=== PATIENT | female | born 1955 | race Caucasian/White ===

== ENCOUNTER 2020-12-18 11:02 | Outpatient (REF) | payer MEDICARE, SELFPAY ==
--- NOTE | ~2020-12-18 | MM_ITS ---
EXAMINATION: MM SCREENING DIGITAL BREAST TOMOSYNTHESIS, BILATERAL CLINICAL INFORMATION: Screening. Asymptomatic. The lifetime risk of breast cancer based on the Tyrer-Cuzick Model is 5%. COMPARISON: Mammography: 12/13/2019, 12/07/2018, 10/28/2017 TECHNIQUE: Digital breast tomosynthesis is performed in both the craniocaudal and mediolateral oblique views along with computer-aided detection (CAD). Synthesized 2D images are generated from the tomosynthesis. FINDINGS: There are scattered areas of fibroglandular density (ACR BI-RADS breast composition Category b). There are no significant masses, abnormal calcifications, or other abnormalities. Parenchymal pattern is similar to prior exams. The axilla and skin contours are unremarkable. No significant changes. MM/MM tomosynthesis screening BI IMPRESSION: No mammographic evidence of malignancy. ASSESSMENT: BI-RADS 1: Negative RECOMMENDATION: Routine annual mammography screening. This patient's information was entered into a reminder system with a target due date for their next mammogram.
== END 2020-12-18 11:03 | disposition home or self-care (01) ==
LOC: HO.MAMMO 11:02
PROVIDERS: PCP Internal Medicine; Visit Provider Internal Medicine
DX: Z12.31 Encounter for screening mammogram for malignant neoplasm of breast (principal)
CPT/HCPCS: 77063; 77067

== ENCOUNTER 2021-06-22 09:15 | Inpatient (IN) | payer MEDICARE, SELFPAY ==
[2021-06-22] VITALS (10 sets, daily range): BP systolic 150–199; BP diastolic 63–93; PULSE 66–93; RESP 16–21; TEMP 36.1–36.7; O2SAT 95–97; BMI 36.5
--- NOTE | ~2021-06-22 | CT_ITS ---
EXAMINATION: CT ABDOMEN AND PELVIS WITH CONTRAST CLINICAL INFORMATION: Elevated liver enzymes and lipase. COMPARISON: None TECHNIQUE: Multidetector volumetric images were obtained from the superior aspect of the liver through the pubic symphysis following administration 85 mL of Omnipaque 350 intravenous contrast. Sagittal and coronal reformatted images were obtained on the technologist's workstation. Oral contrast: No This CT examination was performed using dose optimization techniques as appropriate, variously including the following: *Automated exposure control *Adjustment of mA and/or kV according to patient size (this includes techniques or standardized protocols for targeted exams where dose is matched to indication/reason for exam; i.e. extremities or head) *Use of iterative reconstruction technique DLP: 932 mGy-cm FINDINGS: LUNG BASES: There is minimal atelectatic changes in right lung base. The heart size is normal.. LIVER, GALLBLADDER, AND BILIARY TREE: The liver is normal in size, shape, and attenuation. No focal hepatic lesion or biliary ductal dilatation is present. There are radiopaque gallstones with mild wall thickening. PANCREAS: A pancreatic cyst is normal size and density. There is peripancreatic fluid collection suggestive of acute pancreatitis with fluid extending into the periportal region SPLEEN: Unremarkable. ADRENAL GLANDS: Unremarkable. KIDNEYS AND URETERS: The kidneys are normal in size, shape, and attenuation. No hydronephrosis, hydroureter, or calculi seen. No perinephric stranding. BLADDER: The bladder is undistended and appears unremarkable. GASTROINTESTINAL TRACT: There is scattered stool and gas seen throughout the colon without any significant distention. The appendix is normal caliber caliber. No free air or free fluid seen. ABDOMINAL WALL: There is a small lumbar canal hernia containing fat LYMPH NODES: No abnormal lymph nodes seen. VASCULAR: There is mild arthroscopic changes of abdominal aorta without aneurysmal dilatation. No lytic or sclerotic process seen. PELVIC VISCERA: There is no free air. There is minimal free fluid. The uterus is anteverted and appears unremarkable. OSSEOUS STRUCTURES: There is grade 1 anterolisthesis L4 over L5. There are degenerative disc changes with vacuum disc phenomena L1-L2, L2-L3 and L5-S1 disc levels. CT/CT abdomen pelvis w con IMPRESSION: Acute pancreatitis with peripancreatic fluid collection extending to the portal region and inferiorly along the right midabdomen in the pelvis. Cholelithiasis with mild wall thickening. Degenerative disc changes lumbar spine.
--- NOTE | 2021-06-22 10:36 | ED.ABDPAIN ---
HPI - Abdominal Pain General Chief Complaint: Abdominal Pain Stated Complaint: gas Time Seen by Provider: 06/22/21 10:28 Source: patient Mode of arrival: ambulatory Limitations: no limitations History of Present Illness HPI narrative: Patient is a 65-year-old female with a past medical history of HTN and HLD who presents with 8 hours of abdominal pain and bloating. She says it woke her up out of a sleep. She describes her pain as being epigastric and then moving his way downward. It is a dull achy pain. She denies any changes in her bladder or bowels she denies fevers, she denies any bloody or black stools. She did try taking Tums with no relief. She states she did not take any of her regular daily medications including 20 mg of lisinopril this morning. She states this pain does not feel like typical gas pain. Denies eating anything out of her normal diet, sick contacts or any recent travel. Related Data Allergies Allergy/AdvReac Type Severity Reaction Status Date / Time No Known Allergies Allergy Verified 06/22/21 09:22 [No Known Allergies*] Review of Systems Review of Systems Yes all other systems are reviewed and are negative Physical Exam Vital Signs: Vital Signs: Last Vital Signs Temp 98.1 F 06/22/21 14:21 Pulse 83 06/22/21 14:21 Resp 18 06/22/21 14:21 BP 178/93 H 06/22/21 14:21 Pulse Ox 95 06/22/21 14:21 Body Mass Index 36.5 Const: General: cooperative, healthy appearing, comfortable, no acute distress and well developed Orientation/consciousness: patient oriented x3 Limitations: no limitations HENMT: Head: Yes normal to inspection Eyes: General: appearance normal, both eyes and all related structures Neck: Neck: Yes normal visual inspection and Yes full ROM Resp: Effort & Inspection: normal respiratory effort and able to speak in complete sentences Auscultation: clear to auscultation bilaterally Cardio: Rate: regular rate Rhythm: regular rhythm Heart sounds: normal S1 and S2 GI: Inspection: Yes normal to inspection Palpation (GI): Soft to palpation and Tenderness to palpation present (GI) in the epigastrum and other (generalized) Skin: General skin exam: no rashes or lesions noted Neuro: General: patient oriented x3 Extrem: General: Yes normal to inspection Course Course Course Narrative: Patient is a 65-year-old female with a past medical history of HTN and HLD who presents with 8 hours of abdominal pain and bloating. VSS except for elevated BP but pt didn't take her lisinopril today, will give now. Physical exam unremarkable except for epigastric abdominal pain and generalized abdominal pain. Will get labs, UA, EKG, treat her high blood pressure and give her some simethicone and reassess. Reevaluation(s) Reevaluation #1: Labs show an elevated lipase of 2424, elevated AST at 191 and ALT at 01:53. All other labs unremarkable. Will get abdominal CT scan make patient NPO and order triglycerides. \ Discussed with patient, she denies she does not drink alcohol except occasionally. Time: 12:20 Reevaluation #2: CT of the abdomen and pelvis showed acute pancreatitis with peripancreatic fluid collection extending to the portal region and inferiorly along them right mid abdomen and the pelvis. Patient also has cholelithiasis with mild wall thickening. Will call GI and plan on admission . Spoke with GI, Dr. Steward, she advised bowel rest, IV pain meds, IV fluids and repeat lipase and LFTs tomorrow. Sent text to Dr Navas to advise and for admission Time: 14:37 MDM - Abdominal Pain Lab Data Attestation: I reviewed the patient's lab results. Result diagrams: 06/22/21 11:14 06/22/21 11:14 Labs: Lab Results 06/22/21 06/22/21 06/22/21 Range/Units 11:14 11:14 11:14 WBC 11.4 H (4.8-10.8) X10*3/uL RBC 4.85 (4.20-5.50) X10*6/uL Hgb 14.4 (12.0-16.0) g/dl Hct 43.2 (37-47) % MCV 89.1 (80-98) fL MCH 29.7 (27.0-33.0) pg MCHC 33.3 (31.0-35.0) g/dl RDW 13.3 (11.0-16.0) % Plt Count 201 (160-400) X10*3/uL MPV 9.7 (9.4-12.3) fL Immature Gran % (Auto) 0.4 (0.0-0.4) % Neut % (Auto) 91.0 H (45-73) % Lymph % (Auto) 5.6 L (20-40) % [place] % (Auto) 2.7 (2-11) % Eos % (Auto) 0.1 (0-4) % Baso % (Auto) 0.2 (0-2) % Lymph # (Auto) 0.6 L (1.2-4.9) X10*3/uL [place] # (Auto) 0.3 (0.1-1.2) X10*3/uL Eos # (Auto) 0.0 (0.0-0.4) X10*3/uL Baso # (Auto) 0.0 (0.0-0.2) X10*3/uL Abs Immat Gran (auto) 0.05 H (0.00-0.03) X10*3/uL Absolute Neuts (auto) 10.4 H (2.0-8.3) X10*3/uL Absolute Nucleated RBC 0.000 (0.0-0.012) X10*3/uL Nucleated RBC % (auto) 0.0 (0.0-0.2) /100WBC Smear Tech's Comments VERIFIED Sodium 139 (135-145) mmol/L Potassium 4.2 (3.3-5.1) mmol/L Chloride 108 (96-108) mmol/L Carbon Dioxide 20 L (22-29) mmol/L Anion Gap 15 (12-20) BUN 20 H (9-16) mg/dL Creatinine 0.73 (0.5-1.4) mg/dL Estim Creat Clear Calc 81.2 Estimated GFR > 60 Random Glucose 150 H (60-115) mg/dL Calcium 9.6 (8.4-10.2) mg/dL Total Bilirubin 0.7 (0.0-1.0) mg/dL Direct Bilirubin 0.4 (0.0-0.5) mg/dL AST 191 H (5-31) U/L ALT 153 H (0-31) U/L Alkaline Phosphatase 114 (39-117) U/L Troponin I High Sens (<3.5-17.0) ng/L B-Natriuretic Peptide 29 (<100) pg/mL Total Protein 7.0 (6.5-8.0) g/dL Albumin 4.4 (3.5-5.0) g/dL Triglycerides mg/dL Lipase 2424 H (8-78) U/L 06/22/21 06/22/21 Range/Units 11:14 11:14 WBC (4.8-10.8) X10*3/uL RBC (4.20-5.50) X10*6/uL Hgb (12.0-16.0) g/dl Hct (37-47) % MCV (80-98) fL MCH (27.0-33.0) pg MCHC (31.0-35.0) g/dl RDW (11.0-16.0) % Plt Count (160-400) X10*3/uL MPV (9.4-12.3) fL Immature Gran % (Auto) (0.0-0.4) % Neut % (Auto) (45-73) % Lymph % (Auto) (20-40) % [place] % (Auto) (2-11) % Eos % (Auto) (0-4) % Baso % (Auto) (0-2) % Lymph # (Auto) (1.2-4.9) X10*3/uL [place] # (Auto) (0.1-1.2) X10*3/uL Eos # (Auto) (0.0-0.4) X10*3/uL Baso # (Auto) (0.0-0.2) X10*3/uL Abs Immat Gran (auto) (0.00-0.03) X10*3/uL Absolute Neuts (auto) (2.0-8.3) X10*3/uL Absolute Nucleated RBC (0.0-0.012) X10*3/uL Nucleated RBC % (auto) (0.0-0.2) /100WBC Smear Tech's Comments Sodium (135-145) mmol/L Potassium (3.3-5.1) mmol/L Chloride (96-108) mmol/L Carbon Dioxide (22-29) mmol/L Anion Gap (12-20) BUN (9-16) mg/dL Creatinine (0.5-1.4) mg/dL Estim Creat Clear Calc Estimated GFR Random Glucose (60-115) mg/dL Calcium (8.4-10.2) mg/dL Total Bilirubin (0.0-1.0) mg/dL Direct Bilirubin (0.0-0.5) mg/dL AST (5-31) U/L ALT (0-31) U/L Alkaline Phosphatase (39-117) U/L Troponin I High Sens < 3.5 (<3.5-17.0) ng/L B-Natriuretic Peptide (<100) pg/mL Total Protein (6.5-8.0) g/dL Albumin (3.5-5.0) g/dL Triglycerides 67 mg/dL Lipase (8-78) U/L Imaging Data CT scan - abdomen: Attestation: I personally reviewed and interpreted this imaging study as follows: Radiologist's impression: CT/CT abdomen pelvis w con IMPRESSION: Acute pancreatitis with peripancreatic fluid collection extending to the portal region and inferiorly along the right midabdomen in the pelvis. ? Cholelithiasis with mild wall thickening. ? Degenerative disc changes lumbar spine. Discharge Plan Discharge Clinical Impression: Acute gallstone pancreatitis [facility] Past Medical History Medical History No known health problems Social History Social History Advance Directives: No Advance Directives Information Provided: Yes
--- NOTE | 2021-06-22 10:42 | ECG_ITS ---
Test Reason : ABD PAIN Blood Pressure : / mmHG Vent. Rate : 068 BPM Atrial Rate : 068 BPM P-R Int : 140 ms QRS Dur : 092 ms QT Int : 424 ms P-R-T Axes : 043 -02 041 degrees QTc Int : 450 ms Normal sinus rhythm Normal ECG No previous ECGs available Referred By: Cristin Pinto Electronically Signed By:JENNIFER COBB
[2021-06-22] MEDS: lisinopriL 20 MG TABLET PO (10:53)
[2021-06-22] MEDS: Simethicone 80 MG TAB.CHEW PO (10:53)
--- NOTE | 2021-06-22 11:00 | PC.NURSE ---
pt alert and oriented. Pt reports abdominal pain and bloating that started about eight hours ago. She states the pain woke her up out of her sleep. She describes her pain as being a dull achy epigastric feeling. She denies bloody or black stools. no c/o fever. She reports she took Tums with no relief. Pt has history of HTN and is on Lisinopril but did not take her meds this morning. Her b/p on arrival to ed was 199/86. Pt NS on monitor, Meds given as documented, will continue to monitor. Her is at her bedside.
[2021-06-22 11:26] LABS: Basophils Percent Auto 0.2 % (0-2); Eosinophils Percent Auto 0.1 % (0-4); Hematocrit 43.2 % (37-47); Hemoglobin 14.4 g/dl (12.0-16.0); Imm Gran Abs Auto 0.05 X10*3/uL (0.00-0.03); Imm Gran Pct Auto 0.4 % (0.0-0.4); Lymphocytes Absolute Auto 0.6 X10*3/uL (1.2-4.9); Lymphocytes Percent Auto 5.6 % (20-40); MANUAL DIFF FLAG SCAN; Mean Corpuscular HGB Conc 33.3 g/dl (31.0-35.0); Mean Corpuscular Hemoglobin 29.7 pg (27.0-33.0); Mean Corpuscular Volume 89.1 fL (80-98); Mean Platelet Volume 9.7 fL (9.4-12.3); Monocytes Absolute Auto 0.3 X10*3/uL (0.1-1.2); Monocytes Percent Auto 2.7 % (2-11); Neutrophils Absolute Auto 10.4 X10*3/uL (2.0-8.3); Platelet Count 201 X10*3/uL (160-400); Red Blood Count 4.85 X10*6/uL (4.20-5.50); Red Cell Distribution Width 13.3 % (11.0-16.0); SCAN SMEAR FLAG 1; White Blood Count 11.4 X10*3/uL (4.8-10.8)
[2021-06-22 11:45] LABS: B Type Natriuretic Peptide 29 pg/mL (<100); Troponin-I High Sensitivity < 3.5 ng/L (<3.5-17.0)
[2021-06-22 11:46] LABS: Alanine Aminotransferase 153 U/L (0-31); Albumin Level 4.4 g/dL (3.5-5.0); Alkaline Phosphatase 114 U/L (39-117); Anion Gap 15 (12-20); Aspartate Amino Transferase 191 U/L (5-31); Bilirubin Direct 0.4 mg/dL (0.0-0.5); Bilirubin Total 0.7 mg/dL (0.0-1.0); Blood Urea Nitrogen 20 mg/dL (9-16); Calcium 9.6 mg/dL (8.4-10.2); Carbon Dioxide 20 mmol/L (22-29); Chloride 108 mmol/L (96-108); Creatinine Clr Calc Pharmacy 81.2; Estimated Glomerular Filt Rate > 60; Glucose Random 150 mg/dL (60-115); Potassium 4.2 mmol/L (3.3-5.1); Sodium 139 mmol/L (135-145)
[2021-06-22 12:03] LABS: SLIDE REVIEW VERIFIED
[2021-06-22 12:32] LABS: Lipase 2424 U/L (8-78)
[2021-06-22 13:02] LABS: Triglycerides 67 mg/dL
[2021-06-22] MEDS: iohexoL 350 MG/ML 100 ML INFUS..BTL IV (14:03)
--- NOTE | 2021-06-22 15:15 | PM.IMHP ---
History of Present Illness Date of Service: 06/22/21 65 year old female with HTN controlled with meds, HLD on lipitor, obesity here with abdominal pain that started around 3 a, initially starting as pressure and then became difuse abdominal pain 8/10, constant, no radiation, associated with nausea but no vomitting, no fever. She took 2 tums with no difference, didn't feel like eating, was finally advised by sister in law to come. CT shows gallstones and Lipase level is over 2000 Review of Systems Review of Systems: Gen: no fever Resp: no sob, no cough CV: no chest, no CARRASCO, no leg edema GI: Nausea, and abdominal pain, no vomiting. Neuro: No confusion Yes all other systems are reviewed and are negative [facility] Medical History HLD (hyperlipidemia) HTN (hypertension) No known health problems Family History Brother CAD (coronary artery disease) Mother CAD (coronary artery disease) Pertinent family history: . Surgical History No history of previous surgery Social History Household Members: Spouse Housing: House Do you presently have visiting nurse or other home services: No Unable to assess alcohol history related to: Unable to respond Alcohol intake: current Alcohol intake frequency: holidays/special occasions only Patient Tobacco Use Status: Current everyday Tobacco user Tobacco use type: Smokeless Tobacco e-Cigarette/Vaping Use: Currently Using Second Hand Smoke Exposure: No Advance Directives Date on File: 06/23/21 service: No Meds Allergies Allergy/AdvReac Type Severity Reaction Status Date / Time No Known Allergies Allergy Verified 06/22/21 09:22 [No Known Allergies*] Active Medications: Current Medications Lactated Ringer's (Lr) 1,000 mls @ 125 mls/hr IVCONT .[facility] Home Medications Medication Instructions Recorded Confirmed Last Taken Type atorvastatin 20 mg tablet 1 tab PO DAILY 06/22/21 06/22/21 Unknown History latanoprost 0.005 % eye drops 1 drp OPHTHALMIC (EYE) BEDTIME 06/22/21 06/22/21 Unknown History Physical Exam Vital Signs and Narrative: Vital Signs: Last Vital Signs Temp 98.1 F 06/22/21 14:21 Pulse 80 06/22/21 15:11 Resp 21 H 06/22/21 15:11 BP 151/89 H 06/22/21 15:11 Pulse Ox 96 06/22/21 15:11 Body Mass Index 36.5 Constitutional Awake and Alert, No apparent distress HEENT-Anicteric, Neck Supple, No lymphadenopathy Cardiovascular RRR, No M/R/G, S1 S2, No S3 S4, No pedal edema Respiratory Lungs clear, No respiratory distress Gastrointestinal Non tender, Non-distended Skin No rash Neurological Alert & oriented x3 Psychological Appropriate affect Results Labs CBC and Chem 7: 06/25/21 08:03 06/25/21 08:03 Imaging Radiologist's Impressions: Impressions Abdomen/Pelvis CT 06/22/21 12:48 IMPRESSION: Acute pancreatitis with peripancreatic fluid collection extending to the portal region and inferiorly along the right midabdomen in the pelvis. Cholelithiasis with mild wall thickening. Degenerative disc changes lumbar spine. Assessment and Plan (1) Acute gallstone pancreatitis: Status: Acute 65-year-old female with obesity, hypertension, hyperlipidemia presenting with abdominal pain and found to have choledocholithiasis no evidence of acute cholecystitis. 1. Choledocholithiasis--pain control with morphine. Hydration. Repeat LFTs in the morning. GI and surgery consult: Sure likely need ERCP followed by eventual cholecystectomy Empiric Ceftriaxone 2. Acute gallstone pancreatitis--liquid diet, IV fluid, pain control as above. 3. Hypertension continue home medication (lisinopril) 4. HLD--hold Lipitor in light of elevated LFTs. 5. Heparin for DVT prophylaxis. Quality Stroke Does the patient have a stroke diagnosis?: No VTE Prior VTE?: No VTE Risk Level:: Medical - moderate - high VTE Device Contraindication: N/A - Device Ordered VTE Drug Contraindication: N/A - Med Ordered
[2021-06-22 15:19] LABS: Appearance Urine HAZY; Color Urine YELLOW; Glucose Urine UA NEG (NEG); Leukocyte Esterase Urine NEG (NEG); Nitrite Urine NEG (NEG); Specific Gravity - Urine >= 1.030 (1.005-1.025); UACC Culture Trigger NO; Urine Blood TRACE (NEG); Urine Ketones NEG (NEG); Urine Protein TRACE MG/DL (NEG-TRACE)
[2021-06-22] MEDS: Lactated Ringers 1,000 ML 125 ML IVCONT (15:26)
[2021-06-22 15:27] LABS: Amorphous Sediment Urine 1+ /LPF; Bacteria Urine TRACE /LPF; RBC Urine 0-2 /HPF (0); Squamous Epithelial Cell Urine 1+ /LPF; WBC Urine 0-2 /HPF (0-4)
[2021-06-22 15:44] LABS: COVID-19 Test Negative (Negative)
[2021-06-22] MEDS: Morphine Sulfate 4 MG/ML CARTRIDGE 2 MG IVPUSH (16:47)
[2021-06-22] MEDS: cefTRIAXone sodium 1 GM in 0.9 % Sodium Chloride 50 ML IV (17:51)
[2021-06-22] MEDS: Morphine Sulfate 4 MG/ML CARTRIDGE IVPUSH (19:37)
[2021-06-22] MEDS: Dextrose 5 % and 0.45 % NaCl 1,000 ML 100 ML IVCONT (20:19)
--- NOTE | 2021-06-22 20:27 | PC.NURSE ---
per hospitalist (Anthony) discontinue LR infusion and start D5 1/2NS at 100/hr remaining volume in LR bag was 633ml at time of d/c. order is d/c so system will not allow edits at this time.
[2021-06-23] VITALS (8 sets, daily range): BP systolic 139–190; BP diastolic 73–90; PULSE 87–96; RESP 16–19; TEMP 36.4–36.9; O2SAT 90–95; BMI 36.8
[2021-06-23] MEDS: 0.9 % Sodium Chloride Flush 3 ML SYRINGE IVFLUSH ×3 (00:20→19:41)
--- NOTE | 2021-06-23 00:37 | PC.NURSE ---
nurse to nurse report given to Gayle BRYAN
[2021-06-23] MEDS: Morphine Sulfate 4 MG/ML CARTRIDGE IVPUSH ×4 (01:39→19:40)
[2021-06-23] MEDS: Dextrose 5 % and 0.45 % NaCl 1,000 ML 100 ML IVCONT (06:12)
[2021-06-23] MEDS: Acetaminophen 325 MG TABLET 650 MG PO (06:24)
[2021-06-23 07:24] LABS: MANUAL DIFF FLAG NO
[2021-06-23 07:32] LABS: Basophils Percent Auto 0.2 % (0-2); Eosinophils Percent Auto 0.1 % (0-4); Hematocrit 40.3 % (37-47); Hemoglobin 13.1 g/dl (12.0-16.0); Imm Gran Abs Auto 0.06 X10*3/uL (0.00-0.03); Imm Gran Pct Auto 0.4 % (0.0-0.4); Lymphocytes Percent Auto 7.4 % (20-40); Mean Corpuscular HGB Conc 32.5 g/dl (31.0-35.0); Mean Corpuscular Hemoglobin 29.2 pg (27.0-33.0); Monocytes Absolute Auto 0.6 X10*3/uL (0.1-1.2); Monocytes Percent Auto 4.7 % (2-11); Neutrophils Absolute Auto 11.8 X10*3/uL (2.0-8.3); Neutrophils Percent Auto 87.2 % (45-73); Platelet Count 205 X10*3/uL (160-400); Red Blood Count 4.48 X10*6/uL (4.20-5.50); Red Cell Distribution Width 13.7 % (11.0-16.0); White Blood Count 13.6 X10*3/uL (4.8-10.8)
[2021-06-23 08:00] LABS: Alanine Aminotransferase 87 U/L (0-31); Albumin Level 3.8 g/dL (3.5-5.0); Alkaline Phosphatase 99 U/L (39-117); Anion Gap 14 (12-20); Aspartate Amino Transferase 48 U/L (5-31); Bilirubin Direct 0.3 mg/dL (0.0-0.5); Bilirubin Total 0.6 mg/dL (0.0-1.0); Blood Urea Nitrogen 14 mg/dL (9-16); Calcium 8.7 mg/dL (8.4-10.2); Carbon Dioxide 22 mmol/L (22-29); Chloride 104 mmol/L (96-108); Creatinine Clr Calc Pharmacy 87.6; Estimated Glomerular Filt Rate > 60; Glucose Random 121 mg/dL (60-115); Lipase 566 U/L (8-78); Potassium 3.7 mmol/L (3.3-5.1); Sodium 136 mmol/L (135-145)
--- NOTE | 2021-06-23 09:42 | PM.GICN ---
History of Present Illness Data of Consult Service Date: 06/23/21 Requesting physician: Andressa Bai Primary Care Provider: Javi Schmitz MD HPI Reason for consult: Acute pancreatitis 65-year-old female presented to [facility] on 06/22/2021 with abdominal pain: HPI narrative: Patient is a 65-year-old female with a past medical history of HTN and HLD who presents with 8 hours of abdominal pain and bloating.? She says it woke her up out of a sleep.? She describes her pain as being epigastric and then moving his way downward.? It is a dull achy pain.? She denies any changes in her bladder or bowels she denies fevers, she denies any bloody or black stools.? She did try taking Tums with no relief.? She states she did not take any of her regular daily medications including 20 mg of lisinopril this morning.? She states this pain does not feel like typical gas pain.? Denies eating anything out of her normal diet, sick contacts or any recent travel. Pt reports waking up with abdominal pain at 3 am on 06/22/21. Pain was generalized, felt like pressure and gas and was 8/10 in intensity without radiation to the back. Patient noted nausea and denies fever chills or vomiting. No BM since yesterday. She has a hx of intermittent heartburn and denies change in appetite or weight. Denies recent change in bowel habits, constipation, diarrhea, black stools or rectal bleeding. Patient denies major cardiac or pulmonary problems and uses a CPAP machine for sleep apnea Denies problems with anesthesia in the past. Denies being on chronic anticoagulation. She smoked 1 PPD for 7-8 yrs and quitted smoking a few yrs ago by switching to Vaping. 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 IMAGING STUDIES: 06/22/[address] SCAN SHOWED: LIVER, GALLBLADDER, AND BILIARY TREE: The liver is normal in size, shape, and attenuation. No focal hepatic lesion or biliary ductal dilatation is present. There are radiopaque gallstones with mild wall thickening.? PANCREAS: A pancreatic cyst is normal size and density. There is peripancreatic fluid collection suggestive of acute pancreatitis with fluid extending into the periportal region? Acute pancreatitis with peripancreatic fluid collection extending to the portal region and inferiorly along the right midabdomen in the pelvis. Cholelithiasis with mild wall thickening. Degenerative disc changes lumbar spine. PAST EGD/COLONOSCOPY: 2016 [address] PER[address] REEDER AND SHOWED SIGMOID DIVERTICULOSIS AND SMALL INTERNAL HEMORRHOID. Review of Systems Constitutional: Constitutional: Denies fever(s), Reports headache(s) and Denies weight loss Eyes: Eyes: Denies eye discharge and Denies irritation ENT: Reports Normal hearing present, Denies dysphagia, Denies dizziness and Reports headache(s) Cardiovascular: Cardiovascular: Denies chest pain, Denies leg edema and Denies dyspnea on exertion Respiratory: Respiratory: Denies cough and Denies dyspnea on exertion Gastrointestinal: Gastrointestinal: Reports abdominal pain, Reports bloating, Denies change in bowel habits, Denies dysphagia, Denies heartburn and Reports nausea Genitourinary: Genitourinary: Denies difficulty voiding and Denies dysuria Musculoskeletal: Musculoskeletal: Denies back pain and Reports arthralgias (RA) Integumentary/Breasts: Skin/Breast: Denies pruritus, Denies rash and Denies jaundice Neurologic: Reports Normal hearing present, Denies Abnormal speech present, Denies dizziness, Reports headache(s) and Denies seizure-like activity Psychiatric: Psychiatric: Denies anxiety, Denies depression and Denies panic attacks Endocrine: Endocrine: Denies cold intolerance, Denies flushing and Denies heat intolerance PMFSH Past Medical History Medical History (Updated 06/22/21 @ 15:15 by Naman Butt MD) HLD (hyperlipidemia) HTN (hypertension) No known health problems Family History Family History (Updated 06/22/21 @ 15:20 by Naman Butt MD) Brother CAD (coronary artery disease) Mother CAD (coronary artery disease) Surgical History Surgical History (Updated 06/22/21 @ 15:33 by Naman Butt MD) No history of previous surgery Social History Social History (Updated 06/22/21 @ 15:34 by Naman Butt MD) Household Members: Spouse Housing: House Do you presently have visiting nurse or other home services: No Unable to assess alcohol history related to: Unable to respond Alcohol intake: current Alcohol intake frequency: holidays/special occasions only Patient Tobacco Use Status: Current everyday Tobacco user Tobacco use type: Smokeless Tobacco Smoked in Last 30 Days: Yes e-Cigarette/Vaping Use: Currently Using Patient Interested in Nicotine Replacement: No Patient Given Instructions on How to Stop Smoking: Yes Date Education Initiated: 06/23/21 Second Hand Smoke Exposure: No Use of substances other than those prescribed or required for medical reasons: No Substance Use Frequency: Monthly Last Used Substance: Days (ago) Currently Displaying Signs/Symptoms of Drug Intoxication Withdrawal: No Any prior treatment program specific to substance use: No Have you been hit, kicked, punched, or otherwise hurt by someone within the past year? If so, by whom?: No Do you feel safe in your current relationship?: Yes Is there a partner from a previous relationship who is making you feel unsafe now?: No Are you made to feel afraid or neglected: No Advance Directives: No Advance Directives Information Provided: Yes Advance Directives on File: Yes Advance Directives Date on File: 06/23/21 Do you have thoughts of harming others: None Do you have a plan to hurt others: No Plan Recently lost weight without trying: Unsure Eating poorly because of decreased appetite: Yes Nutrition Risks: No Nutritional Risk Patient : No : No Poor oral hygiene: No service: No Meds Allergies Allergy/AdvReac Type Severity Reaction Status Date / Time No Known Allergies Allergy Verified 06/22/21 09:22 [No Known Allergies*] Active Medications: Current Medications Acetaminophen (Acetaminophen 325 Mg Tablet) 650 mg PO Q6H PRN PRN Reason: Pain, Mild (Pain Scale 1-3) Last Admin: 06/23/21 06:24 Dose: 650 mg Documented by: Ceftriaxone Sodium 1 gm/ (Sodium Chloride) 50 mls @ 100 mls/hr IV Q24H [facility] Last Infusion: 06/22/21 18:21 Dose: Infused Documented by: Dextrose/Sodium Chloride (D51/2ns) 1,000 mls @ 100 mls/hr IVCONT .Q10H [facility] Last Admin: 06/23/21 06:12 Dose: 100 mls/hr Documented by: Latanoprost (Latanoprost 0.005 % Ophth Liliam 2.5 Ml Drops) 1 drop EYE-BOTH BEDTIME [facility] Last Admin: 06/22/21 22:21 Dose: Not Given Documented by: Lisinopril (Lisinopril 5 Mg Tablet) 5 mg PO DAILY [facility]; Protocol Melatonin (Melatonin 3 Mg Tablet) 6 mg PO BEDTIME PRN PRN Reason: Insomnia Morphine Sulfate (Morphine Sulfate 4 Mg/Ml Cartridge) 4 mg IVPUSH Q4H PRN; Protocol PRN Reason: Pain, Severe (Pain Scale 7-10) Last Admin: 06/23/21 06:12 Dose: 4 mg Documented by: Sodium Chloride (0.9 % Sodium Chloride Flush 3 Ml Syringe) 3 ml IVFLUSH QSHIFT [facility] Last Admin: 06/23/21 00:20 Dose: 3 ml Documented by: Home Medications Medication Instructions Recorded Confirmed Last Taken Type atorvastatin 20 mg tablet 1 tab PO DAILY 06/22/21 06/22/21 Unknown History latanoprost 0.005 % eye drops 1 drp OPHTHALMIC (EYE) BEDTIME 06/22/21 06/22/21 Unknown History lisinopril 5 mg tablet 1 tab PO DAILY 06/22/21 06/22/21 Unknown History Physical Exam Vital Signs: Vital Signs: Last Vital Signs Temp 97.6 F 06/23/21 08:00 Pulse 87 06/23/21 08:00 Resp 19 06/23/21 08:00 BP 139/73 06/23/21 08:00 Pulse Ox 92 06/23/21 08:00 Body Mass Index 36.8 Const: General: no acute distress and in distress Nutritional Appearance: obese Orientation/consciousness: patient oriented x3 Limitations: no limitations HENMT: Head: Yes normal to inspection Ears: hearing grossly normal bilaterally Mouth: Normal oral and palatal mucosa present Eyes: Sclerae: sclerae normal Pupils: Equal, round and reactive pupils present Neck: Neck: Yes normal visual inspection Chest: Chest palpation & inspection: normal inspection of the chest Resp: Effort & Inspection: normal respiratory effort Auscultation: clear to auscultation bilaterally Cardio: Palpation: normal PMI Rate: regular rate Rhythm: regular rhythm Heart sounds: S1 normal heart sound present, S2 normal heart sound present and no murmurs GI: Palpation (GI): Soft to palpation, Tenderness to palpation present (GI) (Mild to moderate diffuse abdominal tenderness without rebound) and No hepatosplenomegaly present Auscultation: normal bowel sounds Rectal Exam - Female: deferred Skin: General skin exam: no rashes or lesions noted Neuro: General: patient oriented x3, gait normal and moves all extremities Cranial nerves: Yes Equal, round and reactive pupils present and Yes Normal hearing present Speech: No Abnormal speech present Psych: Appearance: grossly normal Mental Status: mental status grossly normal Results Labs CBC & Chem 7: 06/23/21 06:15 06/23/21 06:15 Labs: Short CBC 06/22/21 06/23/21 Range/Units 11:14 06:15 WBC 11.4 H 13.6 H (4.8-10.8) X10*3/uL Hgb 14.4 13.1 (12.0-16.0) g/dl Hct 43.2 40.3 (37-47) % Plt Count 201 205 (160-400) X10*3/uL BMP 06/22/21 06/23/21 11:14 06:15 Sodium 139 136 Potassium 4.2 3.7 Chloride 108 104 Carbon Dioxide 20 L 22 BUN 20 H 14 Creatinine 0.73 0.68 Calcium 9.6 8.7 D Liver Function 06/22/21 06/23/21 Range/Units 11:14 06:15 Total Bilirubin 0.7 0.6 (0.0-1.0) mg/dL Direct Bilirubin 0.4 0.3 (0.0-0.5) mg/dL AST 191 H 48 H D (5-31) U/L ALT 153 H 87 H (0-31) U/L Alkaline Phosphatase 114 99 (39-117) U/L Albumin 4.4 3.8 (3.5-5.0) g/dL Urine 06/22/21 Range/Units 15:07 Urine Color YELLOW Urine Appearance HAZY Urine pH 6.0 (5.0-8.0) Ur Specific [place] >= 1.030 H (1.005-1.025) Urine Protein TRACE (NEG-TRACE) MG/DL Urine Glucose (UA) NEG (NEG) MG/DL Assessment and Plan (1) Acute gallstone pancreatitis: Status: Acute 65 YF with Obesity, HTN and HLD admitted with abdominal pain, nausea and bloating.? Labs showed elevated LFTs and elevated lipase > 2000 suggestive of acute gallstone pancreatitis. Pt likely passed the stone since LFTs are improving and no biliary ductal dilation on CT scan. Abd CT scan showed acute pancreatitis with peripancreatic fluid collection extending to the portal region and inferiorly along the right midabdomen in the pelvis. Cholelithiasis with mild wall thickening. Repeat labs today showed improvement in LFTs and decrease in lipase from 2424 to 566 RECOMMENDATIONS: 1. Continue bowel rest, IVF, IV pain medications and IV antibiotics 2. Can start a clear liquid diet once abdominal pain improves and lipase is near normal. 3. MRCP can be preformed once pancreatitis improves and if LFTs remain elevated. 4. Pt will need a Lap Brie once pancreatitis resolves Procedures Date of Service Date of Service: 06/23/21
[2021-06-23] MEDS: lisinopriL 5 MG TABLET PO (10:32)
--- NOTE | 2021-06-23 10:34 | MHC.CM.PN ---
Patient lives with , drives, owns CPAP, has [employer] for O2 for CPAP, no other services. Plan is home with , via , [facility].
--- NOTE | 2021-06-23 11:27 | P.PNIM_ITS ---
Subjective Subjective Date of Service: 06/23/21 Interval History: Patient being followed for gallstone pancreatitis, complaining of persistent epigastric pain, decreased appetite, denies fever chills, complaining of sore throat that she developed overnight, denies shortness of breath, no lip swelling, feels tongue is mildly swollen. Review of Systems General no headache, no dizziness no fever chills. CVS no chest pain, no palpitation. Respiratory no shortness of breath, no cough Gastrointestinal no nausea no vomiting, epigastric pain, no diarrhea Physical Exam Vital Signs: Vital Signs: Last Vital Signs Temp 97.6 F 06/23/21 08:00 Pulse 87 06/23/21 10:32 Resp 19 06/23/21 08:00 BP 139/73 06/23/21 10:32 Pulse Ox 92 06/23/21 08:00 Body Mass Index 36.8 General alert oriented x3, no acute distress. Oral examination, normal lips, normal tongue, uvula midline not swollen, mild hyperemia Neck supple no JVD. CVS regular rate rhythm, Respiratory lungs clear to auscultation, no respiratory distress, no wheeze, no rhonchi. Gastrointestinal abdomen soft, epigastric tenderness to palpation, bowel sounds audible, no guarding , no rigidity. Extremities no edema. Neuro nonfocal patient moving all 4 extremity speech clear. Skin no rash Objective Data Active Medications Acetaminophen (Acetaminophen 325 Mg Tablet) 650 mg PO Q6H PRN PRN Reason: Pain, Mild (Pain Scale 1-3) Last Admin: 06/23/21 06:24 Dose: 650 mg Documented by: BROCK Ceftriaxone Sodium 1 gm/ (Sodium Chloride) 50 mls @ 100 mls/hr IV Q24H [facility] Last Infusion: 06/22/21 18:21 Dose: 0 mls/hr Documented by: EMILY Dextrose/Sodium Chloride (D51/2ns) 1,000 mls @ 100 mls/hr IVCONT .Q10H [facility] Last Admin: 06/23/21 06:12 Dose: 100 mls/hr Documented by: BROCK Latanoprost (Latanoprost 0.005 % Ophth Liliam 2.5 Ml Drops) 1 drop EYE-BOTH BEDTIME [facility] Last Admin: 06/22/21 22:21 Dose: Not Given Documented by: EMILY Non-Admin Reason: Med Not Available Lisinopril (Lisinopril 5 Mg Tablet) 5 mg PO DAILY [facility]; Protocol Last Admin: 06/23/21 10:32 Dose: 5 mg Documented by: DENISE Melatonin (Melatonin 3 Mg Tablet) 6 mg PO BEDTIME PRN PRN Reason: Insomnia Morphine Sulfate (Morphine Sulfate 4 Mg/Ml Cartridge) 4 mg IVPUSH Q4H PRN; Protocol PRN Reason: Pain, Severe (Pain Scale 7-10) Last Admin: 06/23/21 10:48 Dose: 4 mg Documented by: DENISE Sodium Chloride (0.9 % Sodium Chloride Flush 3 Ml Syringe) [facility] Last Admin: 06/23/21 10:31 Dose: 3 ml Documented by: DENISE Labs CBC & Chem 7: 06/23/21 06:15 06/23/21 06:15 Labs: Laboratory Results - last 24 hr 06/22/21 06/22/21 06/22/21 11:14 11:14 11:14 MCV 89.1 MCH 29.7 MCHC 33.3 RDW 13.3 Plt Count 201 MPV 9.7 Immature Gran % (Auto) 0.4 Neut % (Auto) 91.0 H Lymph % (Auto) 5.6 L [place] % (Auto) 2.7 Eos % (Auto) 0.1 Baso % (Auto) 0.2 Lymph # (Auto) 0.6 L [place] # (Auto) 0.3 Eos # (Auto) 0.0 Baso # (Auto) 0.0 Abs Immat Gran (auto) 0.05 H Absolute Neuts (auto) 10.4 H Absolute Nucleated RBC 0.000 Nucleated RBC % (auto) 0.0 Smear Tech's Comments VERIFIED Anion Gap 15 Estim Creat Clear Calc 81.2 Estimated GFR > 60 Random Glucose 150 H Calcium 9.6 Total Bilirubin 0.7 Direct Bilirubin 0.4 AST 191 H ALT 153 H Alkaline Phosphatase 114 Troponin I High Sens B-Natriuretic Peptide 29 Total Protein 7.0 Albumin 4.4 Triglycerides Lipase 2424 H Urine Color Urine Appearance Urine pH Ur Specific [place] Urine Protein Urine Glucose (UA) Urine Ketones Urine Blood Urine Nitrite Ur Leukocyte Esterase Urine RBC Urine WBC Ur Squamous Epith Cells Amorphous Sediment Urine Bacteria COVID-19 ([facility]) COVID-19 Clin Com 09/06/22/21 06/22/21 11:14 11:14 15:07 MCV MCH MCHC RDW Plt Count MPV Immature Gran % (Auto) Neut % (Auto) Lymph % (Auto) [place] % (Auto) Eos % (Auto) Baso % (Auto) Lymph # (Auto) [place] # (Auto) Eos # (Auto) Baso # (Auto) Abs Immat Gran (auto) Absolute Neuts (auto) Absolute Nucleated RBC Nucleated RBC % (auto) Smear Tech's Comments Anion Gap Estim Creat Clear Calc Estimated GFR Random Glucose Calcium Total Bilirubin Direct Bilirubin AST ALT Alkaline Phosphatase Troponin I High Sens < 3.5 B-Natriuretic Peptide Total Protein Albumin Triglycerides 67 Lipase Urine Color Urine Appearance Urine pH Ur Specific [place] Urine Protein Urine Glucose (UA) Urine Ketones Urine Blood Urine Nitrite Ur Leukocyte Esterase Urine RBC Urine WBC Ur Squamous Epith Cells Amorphous Sediment Urine Bacteria COVID-19 ([facility]) Negative COVID-19 Clin Com See Note 06/22/21 06/23/21 06/23/21 15:07 06:15 06:15 MCV 90.0 MCH 29.2 MCHC 32.5 RDW 13.7 Plt Count 205 MPV 10.0 Immature Gran % (Auto) 0.4 Neut % (Auto) 87.2 H Lymph % (Auto) 7.4 L [place] % (Auto) 4.7 Eos % (Auto) 0.1 Baso % (Auto) 0.2 Lymph # (Auto) 1.0 L [place] # (Auto) 0.6 Eos # (Auto) 0.0 Baso # (Auto) 0.0 Abs Immat Gran (auto) 0.06 H Absolute Neuts (auto) 11.8 H Absolute Nucleated RBC 0.000 Nucleated RBC % (auto) 0.0 Smear Tech's Comments Anion Gap 14 Estim Creat Clear Calc 87.6 Estimated GFR > 60 Random Glucose 121 H Calcium 8.7 D Total Bilirubin 0.6 Direct Bilirubin 0.3 AST 48 H D ALT 87 H Alkaline Phosphatase 99 Troponin I High Sens B-Natriuretic Peptide Total Protein 6.0 L Albumin 3.8 Triglycerides Lipase 566 H Urine Color YELLOW Urine Appearance HAZY Urine pH 6.0 Ur Specific [place] >= 1.030 H Urine Protein TRACE Urine Glucose (UA) NEG Urine Ketones NEG Urine Blood TRACE Urine Nitrite NEG Ur Leukocyte Esterase NEG Urine RBC 0-2 Urine WBC 0-2 Ur Squamous Epith Cells 1+ Amorphous Sediment 1+ Urine Bacteria TRACE COVID-19 ([facility]) COVID-19 Clin Com Assessment and Plan (1) Acute gallstone pancreatitis: Status: Acute (2) HTN (hypertension): Status: Acute (3) HLD (hyperlipidemia): Status: Acute Assessment and Plan: 65-year-old female with obesity, hypertension, hyperlipidemia presenting with abdominal pain and found to have cholelithiasis and pancreatitis Acute gallstone pancreatitis-persistent epigastric pain likely due to pancreatitis, LFT significantly improved, lipase trended down from 2424 to 566 Will continue NPO, IV fluids, IV ceftriaxone, await surgical and GI evaluation CT abdomen and pelvis showed normal intrahepatic and common bile duct Sore throat likely mild pharyngitis will use cepastat, on IV antibiotics for above Hypertension continue lisinopril 5 mg by mouth daily, noted to have elevated blo od pressure that trended down to normal range HLD--hold Lipitor due to elevated LFTs. DVT prophylaxis compression boots Quality Stroke Does the patient have a stroke diagnosis?: No VTE Prior VTE?: No VTE Risk Level:: Medical - moderate - high VTE Device Contraindication: Treatment Not Indicated VTE Drug Contraindication: N/A - Med Ordered
[2021-06-23] MEDS: Dextrose 5 % and 0.45 % NaCl 1,000 ML 150 ML IVCONT ×2 (14:40→20:18)
[2021-06-23] MEDS: Throat Lozenge, Medicated LOZENGE 1 LOZENGE MUCOUS MEM (14:40)
--- NOTE | 2021-06-23 15:59 | PC.NURSE ---
Patient's SpO2 was 89-90% on RA. Dr. Bai made aware. Patient education provided regarding use of incentive spirometry. Pt placed on 2L O2 NC per MD request.
[2021-06-23] MEDS: cefTRIAXone sodium 1 GM in 0.9 % Sodium Chloride 50 ML IV (17:19)
[2021-06-23] MEDS: Latanoprost 0.005 % Ophth Sol 2.5 ML DROPS 1 DROP EYE-BOTH (19:41)
--- NOTE | 2021-06-23 23:04 | P.CONGS_ITS ---
History of Present Illness Consult details Consult date: 06/23/21 Reason for consult: gallstones Narrative: Pt is 65 year old female who was diagnosed with gallstone pancreatits - elevated lfts and lipase. u/s with lots of stones in GB Clinically improving but surgical consult requested for eventual need for lap macey Pt has had GI consult with discussion of ERCP if labs dont improve Review of Systems Constitutional: Constitutional: Reports as per [facility] Past Medical History Medical History HLD (hyperlipidemia) HTN (hypertension) No known health problems Functional capacity: independent ambulation Patient : No Family History Family History Brother CAD (coronary artery disease) Mother CAD (coronary artery disease) Surgical History Surgical History No history of previous surgery Social History Social History Household Members: Spouse Housing: House Do you presently have visiting nurse or other home services: No Unable to assess alcohol history related to: Unable to respond Alcohol intake: current Alcohol intake frequency: holidays/special occasions only Patient Tobacco Use Status: Current everyday Tobacco user Tobacco use type: Smokeless Tobacco Smoked in Last 30 Days: Yes e-Cigarette/Vaping Use: Currently Using Patient Interested in Nicotine Replacement: No Patient Given Instructions on How to Stop Smoking: Yes Date Education Initiated: 06/23/21 Second Hand Smoke Exposure: No Use of substances other than those prescribed or required for medical reasons: No Substance Use Frequency: Monthly Last Used Substance: Days (ago) Currently Displaying Signs/Symptoms of Drug Intoxication Withdrawal: No Any prior treatment program specific to substance use: No Have you been hit, kicked, punched, or otherwise hurt by someone within the past year? If so, by whom?: No Do you feel safe in your current relationship?: Yes Is there a partner from a previous relationship who is making you feel unsafe now?: No Are you made to feel afraid or neglected: No Advance Directives: No Advance Directives Information Provided: Yes Advance Directives on File: Yes Advance Directives Date on File: 06/23/21 Do you have thoughts of harming others: None Do you have a plan to hurt others: No Plan Recently lost weight without trying: Unsure Eating poorly because of decreased appetite: Yes Nutrition Risks: No Nutritional Risk Patient : No : No Poor oral hygiene: No service: No Meds Allergies Allergy/AdvReac Type Severity Reaction Status Date / Time No Known Allergies Allergy Verified 06/22/21 09:22 [No Known Allergies*] Active Medications: Current Medications Acetaminophen (Acetaminophen 325 Mg Tablet) 650 mg PO Q6H PRN PRN Reason: Pain, Mild (Pain Scale 1-3) Last Admin: 06/23/21 06:24 Dose: 650 mg Documented by: Ceftriaxone Sodium 1 gm/ (Sodium Chloride) 50 mls @ 100 mls/hr IV Q24H [facility] Last Infusion: 06/23/21 18:30 Dose: Infused Documented by: Dextrose/Sodium Chloride (D51/2ns) 1,000 mls @ 150 mls/hr IVCONT .Q6H40M [facility] Last Admin: 06/23/21 20:18 Dose: 150 mls/hr Documented by: Latanoprost (Latanoprost 0.005 % Ophth Liliam 2.5 Ml Drops) 1 drop EYE-BOTH BEDTIME [facility] Last Admin: 06/23/21 19:41 Dose: 1 drop Documented by: Lisinopril (Lisinopril 5 Mg Tablet) 5 mg PO DAILY [facility]; Protocol Last Admin: 06/23/21 10:32 Dose: 5 mg Documented by: Melatonin (Melatonin 3 Mg Tablet) 6 mg PO BEDTIME PRN PRN Reason: Insomnia Morphine Sulfate (Morphine Sulfate 4 Mg/Ml Cartridge) 4 mg IVPUSH Q4H PRN; Protocol PRN Reason: Pain, Severe (Pain Scale 7-10) Last Admin: 06/23/21 19:40 Dose: 4 mg Documented by: Sodium Chloride (0.9 % Sodium Chloride Flush 3 Ml Syringe) [address] Last Admin: 06/23/21 19:41 Dose: 3 ml Documented by: Home Medications Medication Instructions Recorded Confirmed Last Taken Type atorvastatin 20 mg tablet 1 tab PO DAILY 06/22/21 06/22/21 Unknown History latanoprost 0.005 % eye drops 1 drp OPHTHALMIC (EYE) BEDTIME 06/22/21 06/22/21 Unknown History lisinopril 5 mg tablet 1 tab PO DAILY 06/22/21 06/22/21 Unknown History Physical Exam Vital Signs: Vital Signs: Last Vital Signs Temp 98 F 06/23/21 19:36 Pulse 93 06/23/21 19:36 Resp 18 06/23/21 19:36 BP 177/78 H 06/23/21 19:36 Pulse Ox 93 06/23/21 19:36 Body Mass Index 36.8 Const: General: cooperative, healthy appearing and no acute distress GI: Other: soft nondistended, mild tenderness no guarding epigastric area Skin: General skin exam: no rashes or lesions noted and no jaundice Results Labs Result diagrams: 06/23/21 06:15 06/23/21 06:15 Labs: Abnormal lab results 06/23/21 06/23/21 Range/Units 06:15 06:15 WBC 13.6 H (4.8-10.8) X10*3/uL Neut % (Auto) 87.2 H (45-73) % Lymph % (Auto) 7.4 L (20-40) % Lymph # (Auto) 1.0 L (1.2-4.9) X10*3/uL Abs Immat Gran (auto) 0.06 H (0.00-0.03) X10*3/uL Absolute Neuts (auto) 11.8 H (2.0-8.3) X10*3/uL Random Glucose 121 H (60-115) mg/dL AST 48 H D (5-31) U/L ALT 87 H (0-31) U/L Total Protein 6.0 L (6.5-8.0) g/dL Lipase 566 H (8-78) U/L Short CBC 06/23/21 Range/Units 06:15 WBC 13.6 H (4.8-10.8) X10*3/uL Hgb 13.1 (12.0-16.0) g/dl Hct 40.3 (37-47) % Plt Count 205 (160-400) X10*3/uL BMP 06/23/21 06:15 Sodium 136 Potassium 3.7 Chloride 104 Carbon Dioxide 22 BUN 14 Creatinine 0.68 Calcium 8.7 D Liver Function 06/23/21 Range/Units 06:15 Total Bilirubin 0.6 (0.0-1.0) mg/dL Direct Bilirubin 0.3 (0.0-0.5) mg/dL AST 48 H D (5-31) U/L ALT 87 H (0-31) U/L Alkaline Phosphatase 99 (39-117) U/L Albumin 3.8 (3.5-5.0) g/dL Urine 06/22/21 Range/Units 15:07 Urine Color YELLOW Urine Appearance HAZY Urine pH 6.0 (5.0-8.0) Ur Specific [place] >= 1.030 H (1.005-1.025) Urine Protein TRACE (NEG-TRACE) MG/DL Urine Glucose (UA) NEG (NEG) MG/DL All other labs normal. Imaging CT scan - pelvis: report reviewed and image reviewed Abdominal ultrasound report/results: report reviewed Assessment and Plan (1) Acute gallstone pancreatitis: Status: Acute 65 year old female with gallstone pancreatitis - doing well, hoping to have her pancreatitis resolved with out need for ERCP and then can do lap macey. further details about surgery will be discussed once her numbers improve but for now she and her had their questions answered about the diagnosis and treatment Procedures Date of Service Date of Service: 06/23/21
[2021-06-24] MEDS: Morphine Sulfate 4 MG/ML CARTRIDGE IVPUSH ×4 (00:22→20:41)
[2021-06-24] MEDS: Dextrose 5 % and 0.45 % NaCl 1,000 ML 150 ML IVCONT (06:10)
[2021-06-24 06:29] LABS: MANUAL DIFF FLAG NO
[2021-06-24 07:00] LABS: Basophils Percent Auto 0.1 % (0-2); Eosinophils Percent Auto 0.2 % (0-4); Hematocrit 36.4 % (37-47); Hemoglobin 12.2 g/dl (12.0-16.0); Imm Gran Pct Auto 0.7 % (0.0-0.4); Lymphocytes Absolute Auto 0.8 X10*3/uL (1.2-4.9); Lymphocytes Percent Auto 5.7 % (20-40); Mean Corpuscular HGB Conc 33.5 g/dl (31.0-35.0); Mean Corpuscular Hemoglobin 29.8 pg (27.0-33.0); Mean Corpuscular Volume 88.8 fL (80-98); Mean Platelet Volume 9.9 fL (9.4-12.3); Monocytes Absolute Auto 0.8 X10*3/uL (0.1-1.2); Monocytes Percent Auto 5.5 % (2-11); Neutrophils Percent Auto 87.8 % (45-73); Platelet Count 175 X10*3/uL (160-400); Red Cell Distribution Width 13.7 % (11.0-16.0); White Blood Count 13.7 X10*3/uL (4.8-10.8)
[2021-06-24 07:13] LABS: Alanine Aminotransferase 53 U/L (0-31); Albumin Level 3.4 g/dL (3.5-5.0); Alkaline Phosphatase 88 U/L (39-117); Anion Gap 13 (12-20); Aspartate Amino Transferase 24 U/L (5-31); Bilirubin Direct 0.4 mg/dL (0.0-0.5); Bilirubin Total 0.7 mg/dL (0.0-1.0); Blood Urea Nitrogen 8 mg/dL (9-16); Calcium 8.5 mg/dL (8.4-10.2); Carbon Dioxide 24 mmol/L (22-29); Chloride 101 mmol/L (96-108); Creatinine Clr Calc Pharmacy 94.5; Estimated Glomerular Filt Rate > 60; Glucose Random 138 mg/dL (60-115); Lipase 101 U/L (8-78); Potassium 3.5 mmol/L (3.3-5.1); Sodium 134 mmol/L (135-145); Total Protein 5.6 g/dL (6.5-8.0)
[2021-06-24 08:00] VITALS: BP 184/70; PULSE 94; RESP 20; TEMP 36.9; O2SAT 91
[2021-06-24 08:31] VITALS: BP 166/76; PULSE 96
[2021-06-24] MEDS: Dextrose 5 % and 0.9 % NaCl 1,000 ML 125 ML IVCONT ×2 (08:31→18:28)
[2021-06-24] MEDS: lisinopriL 5 MG TABLET PO ×2 (08:31→18:29)
[2021-06-24] MEDS: oxyCODONE HCl Immed Release 5 MG TABLET PO (11:28)
[2021-06-24] MEDS: Famotidine/PF 20 MG/2 ML VIAL IVPUSH ×2 (11:28→20:41)
--- NOTE | 2021-06-24 12:22 | MHC.CM.PN ---
per rounds pt not ready for dc at this time plan remanins home no servceis
--- NOTE | 2021-06-24 12:36 | PM.PNGS ---
Subjective Subjective Date of Service: 06/24/21 Interval history: says she still has some upper abdominal pain no nausea or vomitting Physical Exam Vital Signs: Vital Signs: Last Vital Signs Temp 98.5 F 06/24/21 08:00 Pulse 96 06/24/21 08:31 Resp 20 06/24/21 08:00 BP 166/76 H 06/24/21 08:31 Pulse Ox 91 L 06/24/21 08:00 Body Mass Index 36.8 Const: Other: Chemistry 06/22/21 06/23/21 06/24/21 11:14 06:15 05:47 Sodium 139 136 134 L Potassium 4.2 3.7 3.5 Carbon Dioxide 20 L 22 24 BUN 20 H 14 8 L Creatinine 0.73 0.68 0.63 Calcium 9.6 8.7 D 8.5 Hematology 06/22/21 06/23/21 06/24/21 11:14 06:15 05:47 WBC 11.4 H 13.6 H 13.7 H Hgb 14.4 13.1 12.2 Plt Count 201 205 175 Urinalysis 06/22/21 15:07 Urine Color YELLOW Urine Appearance HAZY Urine pH 6.0 Ur Specific Gravit y >= 1.030 H Urine Protein TRACE Urine Glucose (UA) NEG Urine Ketones NEG Urine Blood TRACE Urine Nitrite NEG Ur Leukocyte Zainab ase NEG Urine RBC 0-2 Urine WBC 0-2 Ur Squamous Epith Cells 1+ General: comfortable and no acute distress Eyes: Sclerae: sclerae normal Resp: Other: on O2 via NC GI: Other: some tenderness on epig area, RUQ, LUQ Palpation (GI): Soft to palpation, not firm and no guarding Procedures Date of Service Date of Service: 06/24/21 Progress Note: A&P Assessment and plan (1) Acute gallstone pancreatitis: Status: Acute Assessment and Plan: admitted for pancreatitis lipase coming down bilirubin normal she wants to proceed laparoscopic cholecystectomy prior to discharge repeat labs tomorrrow lap macey Thursday? medical evaluation preop continue IV abx ok for clear liquids in room with pt Fall Risk Details Current Medications: Current Medications Acetaminophen (Acetaminophen 325 Mg Tablet) 650 mg PO Q6H PRN PRN Reason: Pain, Mild (Pain Scale 1-3) Last Admin: 06/23/21 06:24 Dose: 650 mg Documented by: Al Hydroxide/Mg Hydroxide (Magnesium Hydrox/Alum Hydrox 30 Ml Oral.Susp) 30 ml PO Q6H PRN PRN Reason: Dyspepsia Famotidine (Famotidine/Pf 20 Mg/2 Ml Vial) 20 mg IVPUSH BID [facility] Last Admin: 06/24/21 11:28 Dose: 20 mg Documented by: Ceftriaxone Sodium 1 gm/ (Sodium Chloride) 50 mls @ 100 mls/hr IV Q24H [facility] Last Infusion: 06/23/21 18:30 Dose: Infused Documented by: Dextrose/Sodium Chloride (D5ns) 1,000 mls @ 125 mls/hr IVCONT .Q8H [facility] Last Infusion: 06/24/21 10:50 Dose: Infused Documented by: Latanoprost (Latanoprost 0.005 % Ophth Liliam 2.5 Ml Drops) 1 drop EYE-BOTH BEDTIME [facility] Last Admin: 06/23/21 19:41 Dose: 1 drop Documented by: Lisinopril (Lisinopril 5 Mg Tablet) 5 mg PO DAILY [facility]; Protocol Last Admin: 06/24/21 08:31 Dose: 5 mg Documented by: Melatonin (Melatonin 3 Mg Tablet) 6 mg PO BEDTIME PRN PRN Reason: Insomnia Morphine Sulfate (Morphine Sulfate 4 Mg/Ml Cartridge) 4 mg IVPUSH Q4H PRN; Protocol PRN Reason: Pain, Severe (Pain Scale 7-10) Last Admin: 06/24/21 06:10 Dose: 4 mg Documented by: Oxycodone HCl (Oxycodone Hcl Immed Release 5 Mg Tablet) 5 mg PO Q6H PRN PRN Reason: Pain, Moderate (Pain Scale 4-6 Last Admin: 06/24/21 11:28 Dose: 5 mg Documented by: Sodium Chloride (0.9 % Sodium Chloride Flush 3 Ml Syringe) 3 ml IVFLUSH QSHIFT [facility] Last Admin: 06/24/21 08:32 Dose: Not Given Documented by: Time Spent With Patient Time: Total time spent is greater than 50% in coordination of care (as documented) at patient's floor/unit and/or counseling patient: Time with patient: 15 - 24 minutes Quality Stroke Does the patient have a stroke diagnosis?: No VTE Prior VTE?: No VTE Risk Level:: Medical - moderate - high VTE Device Contraindication: Treatment Not Indicated VTE Drug Contraindication: N/A - Med Ordered
[2021-06-24] MEDS: Magnesium Hydrox/Alum Hydrox 30 ML ORAL.SUSP PO ×2 (14:47→20:49)
--- NOTE | 2021-06-24 15:38 | P.PNIM_ITS ---
Subjective Subjective Date of Service: 06/25/21 Interval History: Patient being followed for gallstone pancreatitis, complaining of persistent epigastric pain, gastric burning, decreased appetite, no nausea no vomiting, no fevers no chills Review of Systems General no headache, no dizziness no fever chills. CVS no chest pain, no palpitation. Respiratory no cough, no sob. Gastrointestinal no nausea, no vomiting, no abdominal pain Physical Exam Vital Signs: Vital Signs: Last Vital Signs Temp 98.5 F 06/24/21 08:00 Pulse 96 06/24/21 08:31 Resp 20 06/24/21 08:00 BP 166/76 H 06/24/21 08:31 Pulse Ox 91 L 06/24/21 08:00 Body Mass Index 36.8 General alert oriented x3, no acute distress.? Oral examination, normal lips, normal tongue, uvula midline not swollen, mild hyperemia Neck? supple no JVD. CVS? regular rate rhythm, Respiratory lungs clear to auscultation, no respiratory distress, no wheeze, no rhonchi. Gastrointestinal abdomen soft,mild epigastric tenderness to palpation,? bowel sounds audible, no guarding , no rigidity. Extremities no? edema. Neuro nonfocal patient moving all 4 extremity speech clear. Skin no rash Objective Data Active Medications Acetaminophen (Acetaminophen 325 Mg Tablet) 650 mg PO Q6H PRN PRN Reason: Pain, Mild (Pain Scale 1-3) Last Admin: 06/23/21 06:24 Dose: 650 mg Documented by: BROCK Al Hydroxide/Mg Hydroxide (Magnesium Hydrox/Alum Hydrox 30 Ml Oral.Susp) 30 ml PO Q6H PRN PRN Reason: Dyspepsia Last Admin: 06/24/21 14:47 Dose: 30 ml Documented by: BEBETO Famotidine (Famotidine/Pf 20 Mg/2 Ml Vial) 20 mg IVPUSH BID [facility] Last Admin: 06/24/21 11:28 Dose: 20 mg Documented by: BEBETO Ceftriaxone Sodium 1 gm/ (Sodium Chloride) 50 mls @ 100 mls/hr IV Q24H [facility] Last Infusion: 06/23/21 18:30 Dose: 0 mls/hr Documented by: CHICOIC Dextrose/Sodium Chloride (D5ns) 1,000 mls @ 125 mls/hr IVCONT .Q8H [facility] Last Infusion: 06/24/21 10:50 Dose: 125 mls/hr Documented by: BEBETO Latanoprost (Latanoprost 0.005 % Ophth Liliam 2.5 Ml Drops) 1 drop EYE-BOTH BEDTIME [facility] Last Admin: 06/23/21 19:41 Dose: 1 drop Documented by: DIOGO Lisinopril (Lisinopril 5 Mg Tablet) 5 mg PO DAILY [facility]; Protocol Last Admin: 06/24/21 08:31 Dose: 5 mg Documented by: TONEY Melatonin (Melatonin 3 Mg Tablet) 6 mg PO BEDTIME PRN PRN Reason: Insomnia Morphine Sulfate (Morphine Sulfate 4 Mg/Ml Cartridge) 4 mg IVPUSH Q4H PRN; Protocol PRN Reason: Pain, Severe (Pain Scale 7-10) Last Admin: 06/24/21 06:10 Dose: 4 mg Documented by: DIOGO Oxycodone HCl (Oxycodone Hcl Immed Release 5 Mg Tablet) 5 mg PO Q6H PRN PRN Reason: Pain, Moderate (Pain Scale 4-6 Last Admin: 06/24/21 11:28 Dose: 5 mg Documented by: BEBETO Sodium Chloride (0.9 % Sodium Chloride Flush 3 Ml [facility]ringe) [facility] Last Admin: 06/24/21 08:32 Dose: Not Given Documented by: TONEY Non-Admin Reason: IVF Labs CBC & Chem 7: 06/25/21 08:03 06/25/21 08:03 Labs: Laboratory Results - last 24 hr 06/24/21 06/24/21 05:47 05:47 MCV 88.8 MCH 29.8 MCHC 33.5 RDW 13.7 Plt Count 175 MPV 9.9 Immature Gran % (Auto) 0.7 H Neut % (Auto) 87.8 H Lymph % (Auto) 5.7 L [place] % (Auto) 5.5 Eos % (Auto) 0.2 Baso % (Auto) 0.1 Lymph # (Auto) 0.8 L [place] # (Auto) 0.8 Eos # (Auto) 0.0 Baso # (Auto) 0.0 Abs Immat Gran (auto) 0.10 H Absolute Neuts (auto) 12.0 H Absolute Nucleated RBC 0.000 Nucleated RBC % (auto) 0.0 Anion Gap 13 Estim Creat Clear Calc 94.5 Estimated GFR > 60 Random Glucose 138 H Calcium 8.5 Total Bilirubin 0.7 Direct Bilirubin 0.4 AST 24 D ALT 53 H Alkaline Phosphatase 88 Total Protein 5.6 L Albumin 3.4 L Lipase 101 H Microbiology Microbiology Results: Microbiology 06/22/21 17:50 Blood Culture - Preliminary Blood - Arterial No growth after 24 hours. 06/22/21 17:50 Blood Culture - Preliminary Blood - Arterial No growth after 24 hours. Assessment and Plan (1) HLD (hyperlipidemia): Status: Acute (2) HTN (hypertension): Status: Acute (3) Acute gallstone pancreatitis: Status: Acute Assessment and Plan: 65-year-old female with obesity, hypertension, hyperlipidemia presenting with abdominal pain and found to have cholelithiasis and pancreatitis Acute gallstone pancreatitis-persistent epigastric pain likely due to pancreatitis, LFT significantly improved to near normal, lipase trended down from 2424 to 566 to 101 this morning Will add clear liquids, although patient does not feel like eating,cont. IV fluids, IV ceftriaxone day 3, will add IV Pepcid, Maalox for gastric burning Continue IV morphine for pain and add by mouth oxycodone as needed CT abdomen and pelvis showed normal intrahepatic and common bile duct Case discussed with Dr. Steward she recommend to continue treatment for acute pancreatitis, and subsequent cholecystectomy. MRCP to be done if LFTs are elevated but since LFTs have improved hold off on MRCP Patient seen by Dr. Carpio plan is for laparoscopic cholecystectomy on Thursday Sore throat likely mild pharyngitis improved Hypertension noted to have elevated blood pressures on lisinopril 5 mg by mouth daily, will change lisinopril to 10 mg daily HLD--hold Lipitor due to elevated LFTs. DVT prophylaxis compression boots Quality Stroke Does the patient have a stroke diagnosis?: No VTE Prior VTE?: No VTE Risk Level:: Medical - moderate - high VTE Device Contraindication: Treatment Not Indicated VTE Drug Contraindication: N/A - Med Ordered
[2021-06-24 16:00] VITALS: BP 170/80; PULSE 97; RESP 18; TEMP 36.9; O2SAT 95
[2021-06-24] MEDS: 0.9 % Sodium Chloride Flush 3 ML SYRINGE IVFLUSH ×2 (16:34→20:42)
[2021-06-24] MEDS: cefTRIAXone sodium 1 GM in 0.9 % Sodium Chloride 50 ML IV (16:35)
[2021-06-24 18:29] VITALS: BP 170/80; PULSE 97
[2021-06-24 19:40] VITALS: BP 180/88; PULSE 97; TEMP 36.9; O2SAT 95
[2021-06-24] MEDS: Latanoprost 0.005 % Ophth Sol 2.5 ML DROPS 1 DROP EYE-BOTH (20:41)
[2021-06-24 23:23] VITALS: BP 170/95; PULSE 94; RESP 19; TEMP 36.9; O2SAT 90
[2021-06-25] VITALS (7 sets, daily range): BP systolic 147–186; BP diastolic 79–90; PULSE 84–90; RESP 14–20; TEMP 36.4–37.4; O2SAT 90–95
[2021-06-25] MEDS: Morphine Sulfate 4 MG/ML CARTRIDGE IVPUSH ×5 (00:36→17:57)
[2021-06-25] MEDS: Magnesium Hydrox/Alum Hydrox 30 ML ORAL.SUSP PO (04:42)
[2021-06-25] MEDS: Dextrose 5 % and 0.9 % NaCl 1,000 ML 125 ML IVCONT ×2 (04:42→12:02)
[2021-06-25 08:09] LABS: MANUAL DIFF FLAG NO
[2021-06-25 08:16] LABS: Basophils Percent Auto 0.2 % (0-2); Eosinophils Absolute Auto 0.1 X10*3/uL (0.0-0.4); Eosinophils Percent Auto 0.9 % (0-4); Hemoglobin 11.6 g/dl (12.0-16.0); Imm Gran Abs Auto 0.06 X10*3/uL (0.00-0.03); Imm Gran Pct Auto 0.6 % (0.0-0.4); Lymphocytes Absolute Auto 0.8 X10*3/uL (1.2-4.9); Lymphocytes Percent Auto 7.9 % (20-40); Mean Corpuscular HGB Conc 33.1 g/dl (31.0-35.0); Mean Corpuscular Hemoglobin 29.6 pg (27.0-33.0); Mean Corpuscular Volume 89.3 fL (80-98); Mean Platelet Volume 9.5 fL (9.4-12.3); Monocytes Absolute Auto 0.5 X10*3/uL (0.1-1.2); Neutrophils Absolute Auto 8.9 X10*3/uL (2.0-8.3); Neutrophils Percent Auto 85.4 % (45-73); Platelet Count 167 X10*3/uL (160-400); Red Blood Count 3.92 X10*6/uL (4.20-5.50); Red Cell Distribution Width 13.6 % (11.0-16.0); White Blood Count 10.4 X10*3/uL (4.8-10.8)
[2021-06-25 08:31] LABS: Alanine Aminotransferase 34 U/L (0-31); Albumin Level 3.3 g/dL (3.5-5.0); Alkaline Phosphatase 95 U/L (39-117); Anion Gap 11 (12-20); Aspartate Amino Transferase 17 U/L (5-31); Bilirubin Direct 0.2 mg/dL (0.0-0.5); Bilirubin Total 0.6 mg/dL (0.0-1.0); Blood Urea Nitrogen 7 mg/dL (9-16); Calcium 8.2 mg/dL (8.4-10.2); Carbon Dioxide 24 mmol/L (22-29); Chloride 105 mmol/L (96-108); Creatinine Clr Calc Pharmacy 97.6; Estimated Glomerular Filt Rate > 60; Glucose Random 142 mg/dL (60-115); Lipase 31 U/L (8-78); Potassium 3.4 mmol/L (3.3-5.1); Sodium 137 mmol/L (135-145); Total Protein 5.5 g/dL (6.5-8.0)
[2021-06-25] MEDS: 0.9 % Sodium Chloride Flush 3 ML SYRINGE IVFLUSH ×3 (08:33→19:59)
[2021-06-25] MEDS: lisinopriL 10 MG TABLET PO (08:53)
[2021-06-25] MEDS: Famotidine/PF 20 MG/2 ML VIAL IVPUSH ×2 (08:59→19:58)
--- NOTE | 2021-06-25 11:31 | P.PNIM_ITS ---
Subjective Subjective Date of Service: 06/25/21 Interval History: Being followed for gallstone pancreatitis, complaining of persistent diffuse mild abdominal pain,still with poor appetite, no bowel movement, no nausea, no vomiting, no fever. Review of Systems General no headache, no dizziness no fever chills.? CVS no chest pain, no palpitation.? Respiratory no cough, no sob.? Gastrointestinal no nausea, no vomiting, persistent abdominal pain Physical Exam Vital Signs: Vital Signs: Last Vital Signs Temp 98.1 F 06/25/21 07:32 Pulse 88 06/25/21 08:53 Resp 16 06/25/21 09:04 BP 186/90 H 06/25/21 08:53 Pulse Ox 95 06/25/21 07:32 Body Mass Index 36.8 General alert oriented x3, no acute distress.? Neck? supple no JVD. CVS? regular rate rhythm, Respiratory lungs clear to auscultation, no respiratory distress, no wheeze, no rhonchi. Gastrointestinal abdomen soft,mild and diffuse abdominal tenderness to palpation,? bowel sounds audible, no guarding , no rigidity. Extremities no? edema. Neuro nonfocal patient moving all 4 extremity speech clear. Skin no rash Objective Data Active Medications Acetaminophen (Acetaminophen 325 Mg Tablet) 650 mg PO Q6H PRN PRN Reason: Pain, Mild (Pain Scale 1-3) Last Admin: 06/23/21 06:24 Dose: 650 mg Documented by: BROCK Al Hydroxide/Mg Hydroxide (Magnesium Hydrox/Alum Hydrox 30 Ml Oral.Susp) 30 ml PO Q6H PRN PRN Reason: Dyspepsia Last Admin: 06/25/21 04:42 Dose: 30 ml Documented by: DIOGO Famotidine (Famotidine/Pf 20 Mg/2 Ml Vial) 20 mg IVPUSH BID [facility] Last Admin: 06/25/21 08:59 Dose: 20 mg Documented by: LOVE-TURGALINA Ceftriaxone Sodium 1 gm/ (Sodium Chloride) 50 mls @ 100 mls/hr IV Q24H [facility] Last Infusion: 06/24/21 17:10 Dose: 0 mls/hr Documented by: STACEY Dextrose/Sodium Chloride (D5ns) 1,000 mls @ 125 mls/hr IVCONT .Q8H [facility] Last Admin: 06/25/21 08:34 Dose: Not Given Documented by: SENTHIL Non-Admin Reason: IV Running Latanoprost (Latanoprost 0.005 % Ophth Liliam 2.5 Ml Drops) 1 drop EYE-BOTH BEDTIME [facility] Last Admin: 06/24/21 20:41 Dose: 1 drop Documented by: DIOGO Lisinopril (Lisinopril 10 Mg Tablet) 10 mg PO DAILY [facility]; Protocol Last Admin: 06/25/21 08:53 Dose: 10 mg Documented by: EVELYNE Melatonin (Melatonin 3 Mg Tablet) 6 mg PO BEDTIME PRN PRN Reason: Insomnia Morphine Sulfate (Morphine Sulfate 4 Mg/Ml Cartridge) 4 mg IVPUSH Q4H PRN; Protocol PRN Reason: Pain, Severe (Pain Scale 7-10) Last Admin: 06/25/21 09:04 Dose: 4 mg Documented by: EVELYNE Oxycodone HCl (Oxycodone Hcl Immed Release 5 Mg Tablet) 5 mg PO Q6H PRN PRN Reason: Pain, Moderate (Pain Scale 4-6 Last Admin: 06/24/21 11:28 Dose: 5 mg Documented by: BEBETO Sodium Chloride (0.9 % Sodium Chloride Flush 3 Ml Syringe) [facility] Last Admin: 06/25/21 08:33 Dose: 3 ml Documented by: SENTHIL Labs CBC & Chem 7: 06/25/21 08:03 06/25/21 08:03 Labs: Laboratory Results - last 24 hr 06/25/21 06/25/21 08:03 08:03 MCV 89.3 MCH 29.6 MCHC 33.1 RDW 13.6 Plt Count 167 MPV 9.5 Immature Gran % (Auto) 0.6 H Neut % (Auto) 85.4 H Lymph % (Auto) 7.9 L [place] % (Auto) 5.0 Eos % (Auto) 0.9 Baso % (Auto) 0.2 Lymph # (Auto) 0.8 L [place] # (Auto) 0.5 Eos # (Auto) 0.1 Baso # (Auto) 0.0 Abs Immat Gran (auto) 0.06 H Absolute Neuts (auto) 8.9 H Absolute Nucleated RBC 0.000 Nucleated RBC % (auto) 0.0 Anion Gap 11 L Estim Creat Clear Calc 97.6 Estimated GFR > 60 Random Glucose 142 H Calcium 8.2 L Total Bilirubin 0.6 Direct Bilirubin 0.2 AST 17 ALT 34 H Alkaline Phosphatase 95 Total Protein 5.5 L Albumin 3.3 L Lipase 31 Microbiology Microbiology Results: Microbiology 06/22/21 17:50 Blood Culture - Preliminary Blood - Arterial No growth after 48 hours. 06/22/21 17:50 Blood Culture - Preliminary Blood - Arterial No growth after 48 hours. Assessment and Plan (1) Acute gallstone pancreatitis: Status: Acute (2) HTN (hypertension): Status: Acute (3) HLD (hyperlipidemia): Status: Acute Assessment and Plan: 65-year-old female with obesity, hypertension, hyperlipidemia presenting with abdominal pain and found to have cholelithiasis and pancreatitis Acute gallstone pancreatitis Persistent mild diffuse abdominal pain, no fevers no chills, no nausea no vomiting WBC normalized, LFTs near normal, lipase normalized Continue clear liquids, will add clear Ensure , persistent poor appetite ,cont. IV fluids reduce rate, on IV ceftriaxone day 4, IV Pepcid, Maalox for gastric burning Continue IV morphine for pain and oxycodone as needed CT abdomen and pelvis showed normal intrahepatic and common bile duct Case discussed with Dr. Steward she recommend to continue treatment for acute pancreatitis, and subsequent cholecystectomy.? MRCP to be done if LFTs are elevated but since LFTs have improved hold off on MRCP Patient seen by Dr. Carpio plan is for laparoscopic cholecystectomy on Tuesday 06/26,npo after midnight Sore throat likely mild pharyngitis improved Hypertension noted to have elevated blood pressures on lisinopril 5 mg therefore increase lisinopril to 10 mg follow BP closely HLD--resume Lipitor upon discharge since LFTs normalized. DVT prophylaxis compression boots Quality Stroke Does the patient have a stroke diagnosis?: No VTE Prior VTE?: No VTE Risk Level:: Medical - moderate - high VTE Device Contraindication: Treatment Not Indicated VTE Drug Contraindication: N/A - Med Ordered
--- NOTE | 2021-06-25 15:10 | P.PNGS_ITS ---
Subjective Subjective Date of Service: 06/25/21 Interval history: Feels much better Pain much improved No nausea/vomiting No events reported Physical Exam Vital Signs: Vital Signs: Last Vital Signs Temp 98.1 F 06/25/21 07:32 Pulse 88 06/25/21 08:53 Resp 16 06/25/21 13:13 BP 186/90 H 06/25/21 08:53 Pulse Ox 95 06/25/21 07:32 Body Mass Index 36.8 Const: Other: Chemistry 06/23/21 06/24/21 06/25/21 06:15 05:47 08:03 Sodium 136 134 L 137 Potassium 3.7 3.5 3.4 Carbon Dioxide 22 24 24 BUN 14 8 L 7 L Creatinine 0.68 0.63 0.61 Calcium 8.7 D 8.5 8.2 L Hematology 06/23/21 06/24/21 06/25/21 06:15 05:47 08:03 WBC 13.6 H 13.7 H 10.4 Hgb 13.1 12.2 11.6 L Plt Count 205 175 167 Urinalysis 06/22/21 15:07 Urine Color YELLOW Urine Appearance HAZY Urine pH 6.0 Ur Specific Gravit y >= 1.030 H Urine Protein TRACE Urine Glucose (UA) NEG Urine Ketones NEG Urine Blood TRACE Urine Nitrite NEG Ur Leukocyte Zainab ase NEG Urine RBC 0-2 Urine WBC 0-2 Ur Squamous Epith Cells 1+ General: comfortable and no acute distress Eyes: Sclerae: sclerae normal Resp: Effort & Inspection: normal respiratory effort Cardio: Rate: regular rate GI: Other: Mild tenderness epigastric area Palpation (GI): Soft to palpation, not firm and no guarding Procedures Date of Service Date of Service: 06/25/21 Progress Note: A&P Assessment and plan (1) Acute gallstone pancreatitis: Status: Acute Assessment and Plan: Much improved Abdomen soft, minimal tender No fever White count normal Lipase now down to 30 Bilirubin normal She wants to proceed with cholecystectomy prior to discharge I reviewed with her the technique of laparoscopic cholecystectomy and possible open. I explained the risks including but not limited to bleeding, infections, injury to bowel, liver, bile duct, bile leak, retained stones, inherent risks of anesthesia, as well as the benefits and alternatives She wants to proceed Patient added on for or schedule tomorrow Fall Risk Details Current Medications: Current Medications Acetaminophen (Acetaminophen 325 Mg Tablet) 650 mg PO Q6H PRN PRN Reason: Pain, Mild (Pain Scale 1-3) Last Admin: 06/23/21 06:24 Dose: 650 mg Documented by: Al Hydroxide/Mg Hydroxide (Magnesium Hydrox/Alum Hydrox 30 Ml Oral.Susp) 30 ml PO Q6H PRN PRN Reason: Dyspepsia Last Admin: 06/25/21 04:42 Dose: 30 ml Documented by: Famotidine (Famotidine/Pf 20 Mg/2 Ml Vial) 20 mg IVPUSH BID [facility] Last Admin: 06/25/21 08:59 Dose: 20 mg Documented by: Ceftriaxone Sodium 1 gm/ (Sodium Chloride) 50 mls @ 100 mls/hr IV Q24H [facility] Last Infusion: 06/24/21 17:10 Dose: Infused Documented by: Dextrose/Sodium Chloride (D5ns) 1,000 mls @ 100 mls/hr IVCONT .Q10H [facility] Last Admin: 06/25/21 12:02 Dose: 125 mls/hr Documented by: Latanoprost (Latanoprost 0.005 % Ophth Liliam 2.5 Ml Drops) 1 drop EYE-BOTH BEDTIME [facility] Last Admin: 06/24/21 20:41 Dose: 1 drop Documented by: Lisinopril (Lisinopril 10 Mg Tablet) 10 mg PO DAILY [facility]; Protocol Last Admin: 06/25/21 08:53 Dose: 10 mg Documented by: Melatonin (Melatonin 3 Mg Tablet) 6 mg PO BEDTIME PRN PRN Reason: Insomnia Morphine Sulfate (Morphine Sulfate 4 Mg/Ml Cartridge) 4 mg IVPUSH Q4H PRN; Protocol PRN Reason: Pain, Severe (Pain Scale 7-10) Last Admin: 06/25/21 13:13 Dose: 4 mg Documented by: Oxycodone HCl (Oxycodone Hcl Immed Release 5 Mg Tablet) 5 mg PO Q6H PRN PRN Reason: Pain, Moderate (Pain Scale 4-6 Last Admin: 06/24/21 11:28 Dose: 5 mg Documented by: Sodium Chloride (0.9 % Sodium Chloride Flush 3 Ml Syringe) 3 ml IVFLUSH QSHIFT [facility] Last Admin: 06/25/21 08:33 Dose: 3 ml Documented by: Time Spent With Patient Time: Total time spent is greater than 50% in coordination of care (as documented) at patient's floor/unit and/or counseling patient: Time with patient: 15 - 24 minutes Quality Stroke Does the patient have a stroke diagnosis?: No VTE Prior VTE?: No VTE Risk Level:: Medical - moderate - high VTE Device Contraindication: Treatment Not Indicated VTE Drug Contraindication: N/A - Med Ordered
[2021-06-25] MEDS: cefTRIAXone sodium 1 GM in 0.9 % Sodium Chloride 50 ML IV (15:48)
[2021-06-25] MEDS: Dextrose 5 % and 0.9 % NaCl 1,000 ML 100 ML IVCONT (22:35)
[2021-06-26] VITALS (12 sets, daily range): BP systolic 131–189; BP diastolic 64–97; PULSE 77–92; RESP 16–19; TEMP 36.2–37.1; O2SAT 90–96
[2021-06-26] MEDS: Morphine Sulfate 4 MG/ML CARTRIDGE IVPUSH (06:05)
[2021-06-26] MEDS: 0.9 % Sodium Chloride Flush 3 ML SYRINGE IVFLUSH ×2 (08:00→17:23)
[2021-06-26] MEDS: lisinopriL 10 MG TABLET PO (08:00)
[2021-06-26] MEDS: Famotidine/PF 20 MG/2 ML VIAL IVPUSH (08:00)
--- NOTE | 2021-06-26 09:17 | P.CONAN_ITS ---
[facility] Active Problems Active Problems: All Active Problems (Updated 06/22/21 @ 15:15 by Naman landa MD) HLD (hyperlipidemia) (Acute) HTN (hypertension) (Acute) Acute gallstone pancreatitis (Acute) Past Medical History Medical History HLD (hyperlipidemia) HTN (hypertension) No known health problems Functional capacity: independent ambulation Family History Family History Brother CAD (coronary artery disease) Mother CAD (coronary artery disease) Family history of problems with anesthesia: No Surgical History Surgical History No history of previous surgery History of Problems with Anesthesia: No Social History Social History Household Members: Spouse Housing: House Do you presently have visiting nurse or other home services: No Unable to assess alcohol history related to: Unable to respond Alcohol intake: current Alcohol intake frequency: holidays/special occasions only Patient Tobacco Use Status: Current everyday Tobacco user Tobacco use type: Smokeless Tobacco Smoked in Last 30 Days: Yes e-Cigarette/Vaping Use: Currently Using Patient Interested in Nicotine Replacement: No Patient Given Instructions on How to Stop Smoking: Yes Date Education Initiated: 06/23/21 Second Hand Smoke Exposure: No Use of substances other than those prescribed or required for medical reasons: No Substance Use Frequency: Monthly Last Used Substance: Days (ago) Currently Displaying Signs/Symptoms of Drug Intoxication Withdrawal: No Any prior treatment program specific to substance use: No Have you been hit, kicked, punched, or otherwise hurt by someone within the past year? If so, by whom?: No Do you feel safe in your current relationship?: Yes Is there a partner from a previous relationship who is making you feel unsafe now?: No Are you made to feel afraid or neglected: No Are you DNR?: No Advance Directives: No Advance Directives Information Provided: Yes Advance Directives on File: Yes Advance Directives Date on File: 06/23/21 Do you have thoughts of harming others: None Do you have a plan to hurt others: No Plan Recently lost weight without trying: No Eating poorly because of decreased appetite: Yes Nutrition Risks: No Nutritional Risk Patient : No : No Poor oral hygiene: No service: No Meds Allergies Allergy/AdvReac Type Severity Reaction Status Date / Time No Known Allergies Allergy Verified 06/22/21 09:22 [No Known Allergies*] Active Medications: Current Medications Acetaminophen (Acetaminophen 325 Mg Tablet) 650 mg PO Q6H PRN PRN Reason: Pain, Mild (Pain Scale 1-3) Last Admin: 06/23/21 06:24 Dose: 650 mg Documented by: Al Hydroxide/Mg Hydroxide (Magnesium Hydrox/Alum Hydrox 30 Ml Oral.Susp) 30 ml PO Q6H PRN PRN Reason: Dyspepsia Last Admin: 06/25/21 04:42 Dose: 30 ml Documented by: Famotidine (Famotidine/Pf 20 Mg/2 Ml Vial) 20 mg IVPUSH BID [facility] Last Admin: 06/26/21 08:00 Dose: 20 mg Documented by: Ceftriaxone Sodium 1 gm/ (Sodium Chloride) 50 mls @ 100 mls/hr IV Q24H [facility] Last Infusion: 06/25/21 16:59 Dose: Infused Documented by: Dextrose/Sodium Chloride (D5ns) 1,000 mls @ 100 mls/hr IVCONT .Q10H [facility] Last Admin: 06/26/21 06:04 Dose: Not Given Documented by: Latanoprost (Latanoprost 0.005 % Ophth Liliam 2.5 Ml Drops) 1 drop EYE-BOTH BEDTIME [facility] Last Admin: 06/25/21 19:59 Dose: Not Given Documented by: Lisinopril (Lisinopril 10 Mg Tablet) 10 mg PO DAILY [facility]; Protocol Last Admin: 06/26/21 08:00 Dose: 10 mg Documented by: Melatonin (Melatonin 3 Mg Tablet) 6 mg PO BEDTIME PRN PRN Reason: Insomnia Morphine Sulfate (Morphine Sulfate 4 Mg/Ml Cartridge) 4 mg IVPUSH Q4H PRN; Protocol PRN Reason: Pain, Severe (Pain Scale 7-10) Last Admin: 06/26/21 06:05 Dose: 4 mg Documented by: Oxycodone HCl (Oxycodone Hcl Immed Release 5 Mg Tablet) 5 mg PO Q6H PRN PRN Reason: Pain, Moderate (Pain Scale 4-6 Last Admin: 06/24/21 11:28 Dose: 5 mg Documented by: Sodium Chloride (0.9 % Sodium Chloride Flush 3 Ml Syringe) 3 ml IVFLUSH QSHIFT [facility] Last Admin: 06/26/21 08:00 Dose: 3 ml Documented by: Home Medications Medication Instructions Recorded Confirmed Last Taken Type atorvastatin 20 mg tablet 1 tab PO DAILY 06/22/21 06/22/21 Unknown History latanoprost 0.005 % eye drops 1 drp OPHTHALMIC (EYE) BEDTIME 06/22/21 06/22/21 Unknown History lisinopril 5 mg tablet 1 tab PO DAILY 06/22/21 06/22/21 Unknown History Exam Exam Date and Time: June 26, [id number] Height,Weight and Vital Signs: Height 5 ft 3 in Weight 94.2 kg Last Vital Signs Temp 98 F 06/26/21 09:03 Pulse 79 06/26/21 09:03 Resp 18 06/26/21 09:03 BP 168/71 H 06/26/21 09:03 Pulse Ox 94 06/26/21 09:03 Pertinent Lab Results Pertinent Lab Results: Laboratory Tests 06/22/21 06/22/21 06/22/21 11:14 11:14 11:14 WBC 11.4 H RBC 4.85 Hgb 14.4 Hct 43.2 MCV 89.1 MCH 29.7 MCHC 33.3 RDW 13.3 Plt Count 201 MPV 9.7 Immature Gran % (Auto) 0.4 Neut % (Auto) 91.0 H Lymph % (Auto) 5.6 L Garden % (Auto) 2.7 Eos % (Auto) 0.1 Baso % (Auto) 0.2 Lymph # (Auto) 0.6 L [place] # (Auto) 0.3 Eos # (Auto) 0.0 Baso # (Auto) 0.0 Abs Immat Gran (auto) 0.05 H Absolute Neuts (auto) 10.4 H Absolute Nucleated RBC 0.000 Nucleated RBC % (auto) 0.0 Smear Tech's Comments VERIFIED Sodium 139 Potassium 4.2 Chloride 108 Carbon Dioxide 20 L Anion Gap 15 BUN 20 H Creatinine 0.73 Estim Creat Clear Calc 81.2 Estimated GFR > 60 Random Glucose 150 H Calcium 9.6 Total Bilirubin 0.7 Direct Bilirubin 0.4 AST 191 H ALT 153 H Alkaline Phosphatase 114 Troponin I High Sens B-Natriuretic Peptide 29 Total Protein 7.0 Albumin 4.4 Triglycerides Lipase 2424 H Urine Color Urine Appearance Urine pH Ur Specific [place] Urine Protein Urine Glucose (UA) Urine Ketones Urine Blood Urine Nitrite Ur Leukocyte Esterase Urine RBC Urine WBC Ur Squamous Epith Cells Amorphous Sediment Urine Bacteria COVID-19 ([facility]) COVID-19 Clin Com Blood Type 06/22/21 06/22/21 06/22/21 11:14 11:14 15:07 WBC RBC Hgb Hct MCV MCH MCHC RDW Plt Count MPV Immature Gran % (Auto) Neut % (Auto) Lymph % (Auto) Garden % (Auto) Eos % (Auto) Baso % (Auto) Lymph # (Auto) Garden # (Auto) Eos # (Auto) Baso # (Auto) Abs Immat Gran (auto) Absolute Neuts (auto) Absolute Nucleated RBC Nucleated RBC % (auto) Smear Tech's Comments Sodium Potassium Chloride Carbon Dioxide Anion Gap BUN Creatinine Estim Creat Clear Calc Estimated GFR Random Glucose Calcium Total Bilirubin Direct Bilirubin AST ALT Alkaline Phosphatase Troponin I High Sens < 3.5 B-Natriuretic Peptide Total Protein Albumin Triglycerides 67 Lipase Urine Color Urine Appearance Urine pH Ur Specific [place] Urine Protein Urine Glucose (UA) Urine Ketones Urine Blood Urine Nitrite Ur Leukocyte Esterase Urine RBC Urine WBC Ur Squamous Epith Cells Amorphous Sediment Urine Bacteria COVID-19 ([facility]) Negative COVID-19 Clin Com See Note Blood Type 06/22/21 06/23/21 06/23/21 15:07 06:15 06:15 WBC 13.6 H RBC 4.48 Hgb 13.1 Hct 40.3 MCV 90.0 MCH 29.2 MCHC 32.5 RDW 13.7 Plt Count 205 MPV 10.0 Immature Gran % (Auto) 0.4 Neut % (Auto) 87.2 H Lymph % (Auto) 7.4 L Garden % (Auto) 4.7 Eos % (Auto) 0.1 Baso % (Auto) 0.2 Lymph # (Auto) 1.0 L [place] # (Auto) 0.6 Eos # (Auto) 0.0 Baso # (Auto) 0.0 Abs Immat Gran (auto) 0.06 H Absolute Neuts (auto) 11.8 H Absolute Nucleated RBC 0.000 Nucleated RBC % (auto) 0.0 Smear Tech's Comments Sodium 136 Potassium 3.7 Chloride 104 Carbon Dioxide 22 Anion Gap 14 BUN 14 Creatinine 0.68 Estim Creat Clear Calc 87.6 Estimated GFR > 60 Random Glucose 121 H Calcium 8.7 D Total Bilirubin 0.6 Direct Bilirubin 0.3 AST 48 H D ALT 87 H Alkaline Phosphatase 99 Troponin I High Sens B-Natriuretic Peptide Total Protein 6.0 L Albumin 3.8 Triglycerides Lipase 566 H Urine Color YELLOW Urine Appearance HAZY Urine pH 6.0 Ur Specific [place] >= 1.030 H Urine Protein TRACE Urine Glucose (UA) NEG Urine Ketones NEG Urine Blood TRACE Urine Nitrite NEG Ur Leukocyte Esterase NEG Urine RBC 0-2 Urine WBC 0-2 Ur Squamous Epith Cells 1+ Amorphous Sediment 1+ Urine Bacteria TRACE COVID-19 ([facility]) COVID-19 Clin Com Blood Type 06/24/21 06/24/21 06/25/21 05:47 05:47 08:03 WBC 13.7 H 10.4 RBC 4.10 L 3.92 L Hgb 12.2 11.6 L Hct 36.4 L 35.0 L MCV 88.8 89.3 MCH 29.8 29.6 MCHC 33.5 33.1 RDW 13.7 13.6 Plt Count 175 167 MPV 9.9 9.5 Immature Gran % (Auto) 0.7 H 0.6 H Neut % (Auto) 87.8 H 85.4 H Lymph % (Auto) 5.7 L 7.9 L [place] % (Auto) 5.5 5.0 Eos % (Auto) 0.2 0.9 Baso % (Auto) 0.1 0.2 Lymph # (Auto) 0.8 L 0.8 L Garden # (Auto) 0.8 0.5 Eos # (Auto) 0.0 0.1 Baso # (Auto) 0.0 0.0 Abs Immat Gran (auto) 0.10 H 0.06 H Absolute Neuts (auto) 12.0 H 8.9 H Absolute Nucleated RBC 0.000 0.000 Nucleated RBC % (auto) 0.0 0.0 Smear Tech's Comments Sodium 134 L Potassium 3.5 Chloride 101 Carbon Dioxide 24 Anion Gap 13 BUN 8 L Creatinine 0.63 Estim Creat Clear Calc 94.5 Estimated GFR > 60 Random Glucose 138 H Calcium 8.5 Total Bilirubin 0.7 Direct Bilirubin 0.4 AST 24 D ALT 53 H Alkaline Phosphatase 88 Troponin I High Sens B-Natriuretic Peptide Total Protein 5.6 L Albumin 3.4 L Triglycerides Lipase 101 H Urine Color Urine Appearance Urine pH Ur Specific [place] Urine Protein Urine Glucose (UA) Urine Ketones Urine Blood Urine Nitrite Ur Leukocyte Esterase Urine RBC Urine WBC Ur Squamous Epith Cells Amorphous Sediment Urine Bacteria COVID-19 ([facility]) COVID-19 Clin Com Blood Type 06/25/21 06/26/21 08:03 08:35 WBC RBC Hgb Hct MCV MCH MCHC RDW Plt Count MPV Immature Gran % (Auto) Neut % (Auto) Lymph % (Auto) Garden % (Auto) Eos % (Auto) Baso % (Auto) Lymph # (Auto) Garden # (Auto) Eos # (Auto) Baso # (Auto) Abs Immat Gran (auto) Absolute Neuts (auto) Absolute Nucleated RBC Nucleated RBC % (auto) Smear Tech's Comments Sodium 137 Potassium 3.4 Chloride 105 Carbon Dioxide 24 Anion Gap 11 L BUN 7 L Creatinine 0.61 Estim Creat Clear Calc 97.6 Estimated GFR > 60 Random Glucose 142 H Calcium 8.2 L Total Bilirubin 0.6 Direct Bilirubin 0.2 AST 17 ALT 34 H Alkaline Phosphatase 95 Troponin I High Sens B-Natriuretic Peptide Total Protein 5.5 L Albumin 3.3 L Triglycerides Lipase 31 Urine Color Urine Appearance Urine pH Ur Specific [place] Urine Protein Urine Glucose (UA) Urine Ketones Urine Blood Urine Nitrite Ur Leukocyte Esterase Urine RBC Urine WBC Ur Squamous Epith Cells Amorphous Sediment Urine Bacteria COVID-19 ([facility]) COVID-19 Clin Com Blood Type A Positive Airway Mallampati Class: II TM Dist: <=3cm Neck ROM: Full Loose/Missing/Broken Teeth: Yes Other: ok Assessment and Plan Assessment Anesthesia Assessment: Anesthesia Plan Discussed and Chart Reviewed Final Anesthetic Review Family History of Problems with Anesthesia: No History of Problems with Anesthesia: No NPO: Yes ASA Class: II Final Preanesthetic Review: No Changes in Pt Med Stat, Meds/Allgs Chart Reviewed, Consent Obtained/Reviewed and Anes Risks/Benef Reviewed Patient Risk: Intermediate Procedure Risk: Intermediate Anesthetic Plan Anesthetic Plan: GA and Agree w/ Assess. and Plan Disposition: Standard PACU
--- NOTE | 2021-06-26 10:52 | MHC.CM.PN ---
Per ROUNDS discussion, Patient is not yet medically cleared for dc today (Cholecystectomy today, IV Ceftriaxone, IV Pepcid, IV Morphine). Home is the goal for dc and CM will follow for possible need to adjust the dc plan.
--- NOTE | 2021-06-26 10:57 | P.OP_ITS ---
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 Her lipase had normalized yesterday. Her bilirubin was within normal. There was no evidence of any CBD obstruction on CT scan. I therefore explained to her the option of proceeding with cholecystectomy as an inpatient prior to discharge in view of the risk of recurrence I reviewed with her the technique of this procedure. I reviewed the risks, benefits, and alternatives. She wanted to proceed. She was brought to the operating room placed supine on table under general anesthesia via endotracheal tube. The abdomen is prepped and draped in the usual sterile fashion. A surgical time-out was done. The patient received Cefotan 2 g IV preoperatively I made a short supraumbilical incision using blade 15 and this was carried down through the full-thickness of the skin and thick subcutaneous fat fascia. The fascia was incised. The peritoneum was entered. Through this incision a Syed port was introduced. Pneumoperitoneum was introduced to a pressure of 15 mm of mercury. From here on the rest of the procedure was done under vision with the laparoscope. With laparoscopic visualization using a 10 mm flat scope, proceeded then insert a 5/12 mm port in the epigastric area below the subcostal margin. 5 mm port introduced a small incision below the subcostal margin along the anterior axillary line and the midclavicular line. Graspers were placed through these working ports. The patient was placed in head-up and [id number] position. The gallbladder was seen. This was distended mildly erythematous. However we were able to apply a grasper at the fundus and this was used to retract the gallbladder cephalad. I applied a grasper towards the pouch of the gallbladder and this was used to retract the gallbladder laterally. At this point therefore the gallbladder was being retracted in a lateral and cephalad fashion to put the cystic duct on stretch. I proceeded to gently dissect the area of the cystic duct using the [place] dissector. By doing so was able to visualize the lymph node of [place], as well as the cystic artery. I was therefore able to achieve a critical view of the hepatocystic triangle and there was no other structures in this area. I continued to define the confluence of the cystic duct with the neck of the gallbladder. Once this was defined, I proceeded to then apply clips with 2 clips being applied distally. The cystic duct was transected between clips with Endo scissors. This cystic duct was transected above the level of th e lymph node of [place]. I applied clips on the cystic artery as well with2 clips applied distally. The cystic artery was transected between clips with Endo scissors. I continued to gently dissect the rest of the hilum. There were some thick fibrous tissue that I also clipped and transected between clips using scissors. I reached the interface of the gallbladder wall and the liver bed. I then used electrocautery spatula to incise the peritoneum of the gallbladder. I proceeded to define a plane of dissection between the gallbladder wall and the liver bed using a combination of blunt dissection with the tip of the spatula as well as extra cautery itself to separate the gallbladder from the liver bed. I continued with this dissection all the way to the fundus until the entire gallbladder was completely . There was note of a small leak from the gallbladder from the cystic duct after a clip had loosened. I retrieved the gallbladder through an endobag through the umbilical incision. I reinserted all ports and insufflated. I irrigated the subhepatic space in view of the leakage of bile from the gallbladder earlier. I observed for 4 quadrants and there was no other pathology. There was no evidence of any bowel injury. I re-examined the subhepatic space. This was noted to be hemostatic without any bile leak I therefore suctioned out all the rest of the irrigant fluid. I desufflated the port sites. I removed all ports under vision with the laparoscope. The umbilical port was removed last. The fascia of the umbilical incision was closed with [id number] Dexon 0 stitch. Skin closure was achieved on all incisions using Dexon 4-0 subcuticular running sutures. Steri-Strips and dressings were applied. All incisions were infiltrated with Marcaine 0.5% for postop analgesia. The procedure was then completed. The patient tolerated the procedure well. There were no complications noted. Initial and finalcounts of sponges and instruments were correct. Estimated blood loss about 20 cc The patient was extubated without difficulty and transferred to the recovery room with stable vital signs.
--- NOTE | 2021-06-26 11:10 | P.BOP_ITS ---
Brief Operative Note Date of Service: 06/26/21 Pre-op diagnosis: Gallstones, recent pancreatitis Post-op diagnosis: same Procedure: Laparoscopic cholecystectomy Surgeon: Kali Carpio MD Anesthesia: GETA Was an Wildland Fire Fighter used for this Procedure?: Yes Wildland [employer] Fighter: Li Em Estimated blood loss (mL): 20 Pathology: other (Gallbladder) Condition: stable Disposition: PACU
--- NOTE | 2021-06-26 13:45 | HO.PM.IMPN ---
Subjective Subjective Date of Service: 06/26/21 Interval History: Patient returned after laparoscopic cholecystectomy, feels hungry, complaining of some pain at the site of incision, passing flatus, no bowel movement. Review of Systems General no headache, no dizziness no fever chills.? CVS no chest pain, no palpitation.? Respiratory no cough, no sob.? Gastrointestinal no nausea, no vomiting, mild abdominal pain Physical Exam Vital Signs: Vital Signs: Last Vital Signs Temp 97.3 F 06/26/21 11:33 Pulse 79 06/26/21 11:33 Resp 16 06/26/21 11:33 BP 139/82 06/26/21 11:33 Pulse Ox 96 06/26/21 11:33 Body Mass Index 36.8 General alert oriented x3 ,no acute distress. Neck supple no JVD. CVS regular rate rhythm, Respiratory lungs clear to auscultation, no respiratory distress, no wheeze, no rhonchi. Gastrointestinal abdomen soft, mild tenderness at site of incision, umbilical dressing saturated, no guarding , no rigidity. Extremities no edema. Neuro nonfocal , speech clear. Skin no rash Objective Data Active Medications Acetaminophen (Acetaminophen 325 Mg Tablet) 650 mg PO Q6H PRN PRN Reason: Pain, Mild (Pain Scale 1-3) Last Admin: 06/23/21 06:24 Dose: 650 mg Documented by: BROCK Acetaminophen (Acetaminophen 325 Mg Tablet) 650 mg PO ONCE PRN PRN Reason: Pain, Mild (Pain Scale 1-3) Al Hydroxide/Mg Hydroxide (Magnesium Hydrox/Alum Hydrox 30 Ml Oral.Susp) 30 ml PO Q6H PRN PRN Reason: Dyspepsia Last Admin: 06/25/21 04:42 Dose: 30 ml Documented by: DIOGO Fentanyl (Fentanyl Citrate/Pf 100 Mcg/2 Ml Vial) 50 mcg IVPUSH Q5M PRN; Protocol PRN Reason: Pain, Severe (Pain Scale 7-10) Hydromorphone HCl (Hydromorphone Hcl 0.5 Mg/0.5 Ml Syringe) 0.5 mg IVPUSH Q5M PRN; Protocol PRN Reason: Pain, Severe (Pain Scale 7-10) Ceftriaxone Sodium 1 gm/ (Sodium Chloride) 50 mls @ 100 mls/hr IV Q24H COUNT INCLUDES THE [facility] Last Infusion: 06/25/21 16:59 Dose: 0 mls/hr Documented by: PODZIKALA Latanoprost (Latanoprost 0.005 % Ophth Liliam 2.5 Ml Drops) 1 drop EYE-BOTH BEDTIME COUNT INCLUDES THE [facility] Last Admin: 06/25/21 19:59 Dose: Not Given Documented by: CHRISTOPHER Non-Admin Reason: Patient Refused Lisinopril (Lisinopril 10 Mg Tablet) 10 mg PO DAILY COUNT INCLUDES THE [facility]; Protocol Last Admin: 06/26/21 08:00 Dose: 10 mg Documented by: DENISE Melatonin (Melatonin 3 Mg Tablet) 6 mg PO BEDTIME PRN PRN Reason: Insomnia Morphine Sulfate (Morphine Sulfate 4 Mg/Ml Cartridge) 4 mg IVPUSH Q4H PRN; Protocol PRN Reason: Pain, Severe (Pain Scale 7-10) Last Admin: 06/26/21 06:05 Dose: 4 mg Documented by: CHRISTOPHER Omeprazole (Omeprazole 20 Mg Capsule.Dr) 20 mg PO DAILY@0630 COUNT INCLUDES THE [facility] Ondansetron HCl (Ondansetron Hcl 4 Mg/2 Ml Vial) 4 mg IVPUSH ONCE PRN PRN Reason: Nausea and Vomiting Oxycodone HCl (Oxycodone Hcl Immed Release 5 Mg Tablet) 5 mg PO Q6H PRN PRN Reason: Pain, Moderate (Pain Scale 4-6 Last Admin: 06/24/21 11:28 Dose: 5 mg Documented by: BEBETO Oxycodone HCl (Oxycodone Hcl Immed Release 5 Mg Tablet) 10 mg PO Q4H PRN PRN Reason: Pain, Moderate (Pain Scale 4-6 Sodium Chloride (0.9 % Sodium Chloride Flush 3 Ml Syringe) 3 ml IVFLUSH QSHIFT COUNT INCLUDES THE [facility] Last Admin: 06/26/21 08:00 Dose: 3 ml Documented by: DENISE Labs CBC & Chem 7: 06/25/21 08:03 06/25/21 08:03 Labs: Laboratory Results - last 24 hr 06/26/21 08:35 Blood Type A Positive Blood Bank Comment Technical Assessment and Plan (1) HLD (hyperlipidemia): Status: Acute (2) HTN (hypertension): Status: Acute (3) Acute gallstone pancreatitis: Status: Acute Assessment and Plan: 65-year-old female with obesity, hypertension, hyperlipidemia presenting with abdominal pain and found to have cholelithiasis and pancreatitis Acute gallstone pancreatitis Underwent laparoscopic cholecystectomy this morning postprocedure complaining of incisional pain no nausea no vomiting Will discontinue IV fluid, placed on low-fat diet, DC IV Pepcid changed to by mouth Prilosec Continue current pain medications with oxycodone and IV morphine Recommend out of bed to chair and ambulation recommend to use incentive spirometry Sore throat likely mild pharyngitis resolved Hypertension blood pressure improved with increased dose of lisinopril continue lisinopril 10 mg daily HLD--resume Lipitor since LFTs normalized. DVT prophylaxis compression boots Quality Stroke Does the patient have a stroke diagnosis?: No VTE Prior VTE?: No VTE Risk Level:: Medical - moderate - high VTE Device Contraindication: Treatment Not Indicated VTE Drug Contraindication: N/A - Med Ordered
[2021-06-26] MEDS: cefTRIAXone sodium 1 GM in 0.9 % Sodium Chloride 50 ML IV (17:23)
[2021-06-26] MEDS: Latanoprost 0.005 % Ophth Sol 2.5 ML DROPS 1 DROP EYE-BOTH (20:12)
[2021-06-27] MEDS: 0.9 % Sodium Chloride Flush 3 ML SYRINGE IVFLUSH ×2 (00:25→08:54)
[2021-06-27] MEDS: Omeprazole 20 MG CAPSULE.DR PO (05:42)
[2021-06-27 07:03] VITALS: BP 157/65; PULSE 74; RESP 22; TEMP 36.9; O2SAT 93
--- NOTE | 2021-06-27 08:17 | PM.PNGS ---
Subjective Subjective Date of Service: 06/27/21 Interval history: Feels well Pain minimal Tolerating diet No events overnight Physical Exam Vital Signs: Vital Signs: Last Vital Signs Temp 98.4 F 06/27/21 07:03 Pulse 74 06/27/21 07:03 Resp 22 H 06/27/21 07:03 BP 157/65 H 06/27/21 07:03 Pulse Ox 93 06/27/21 07:03 Body Mass Index 36.8 Const: General: comfortable and no acute distress Eyes: Other: Nonicteric sclerae Resp: Effort & Inspection: normal respiratory effort GI: Other: Soft, nondistended, no guarding or rebound, incisions clean, dry currently Procedures Date of Service Date of Service: 06/27/21 Progress Note: A&P Assessment and plan (1) Acute gallstone pancreatitis: Status: Acute Assessment and Plan: Status post laparoscopic cholecystectomy Doing well BandAid on umbilical incision changed Okay to discharge home today DC instructions explained to patient Follow-up with me in the office for wound check in 2-3 weeks No lifting more than 20 lb Okay to shower Fall Risk Details Current Medications: Current Medications Acetaminophen (Acetaminophen 325 Mg Tablet) 650 mg PO Q6H PRN PRN Reason: Pain, Mild (Pain Scale 1-3) Last Admin: 06/23/21 06:24 Dose: 650 mg Documented by: Acetaminophen (Acetaminophen 325 Mg Tablet) 650 mg PO ONCE PRN PRN Reason: Pain, Mild (Pain Scale 1-3) Al Hydroxide/Mg Hydroxide (Magnesium Hydrox/Alum Hydrox 30 Ml Oral.Susp) 30 ml PO Q6H PRN PRN Reason: Dyspepsia Last Admin: 06/25/21 04:42 Dose: 30 ml Documented by: Fentanyl (Fentanyl Citrate/Pf 100 Mcg/2 Ml Vial) 50 mcg IVPUSH Q5M PRN; Protocol PRN Reason: Pain, Severe (Pain Scale 7-10) Hydromorphone HCl (Hydromorphone Hcl 0.5 Mg/0.5 Ml Syringe) 0.5 mg IVPUSH Q5M PRN; Protocol PRN Reason: Pain, Severe (Pain Scale 7-10) Ceftriaxone Sodium 1 gm/ (Sodium Chloride) 50 mls @ 100 mls/hr IV Q24H [facility] Last Infusion: 06/26/21 18:20 Dose: Infused Documented by: Latanoprost (Latanoprost 0.005 % Ophth Liliam 2.5 Ml Drops) 1 drop EYE-BOTH BEDTIME [facility] Last Admin: 06/26/21 20:12 Dose: 1 drop Documented by: Lisinopril (Lisinopril 10 Mg Tablet) 10 mg PO DAILY [facility]; Protocol Last Admin: 06/26/21 08:00 Dose: 10 mg Documented by: Melatonin (Melatonin 3 Mg Tablet) 6 mg PO BEDTIME PRN PRN Reason: Insomnia Morphine Sulfate (Morphine Sulfate 4 Mg/Ml Cartridge) 4 mg IVPUSH Q4H PRN; Protocol PRN Reason: Pain, Severe (Pain Scale 7-10) Last Admin: 06/26/21 06:05 Dose: 4 mg Documented by: Omeprazole (Omeprazole 20 Mg Capsule.Dr) 20 mg PO DAILY@0630 [facility] Last Admin: 06/27/21 05:42 Dose: 20 mg Documented by: Ondansetron HCl (Ondansetron Hcl 4 Mg/2 Ml Vial) 4 mg IVPUSH ONCE PRN PRN Reason: Nausea and Vomiting Oxycodone HCl (Oxycodone Hcl Immed Release 5 Mg Tablet) 5 mg PO Q6H PRN PRN Reason: Pain, Moderate (Pain Scale 4-6 Last Admin: 06/24/21 11:28 Dose: 5 mg Documented by: Oxycodone HCl (Oxycodone Hcl Immed Release 5 Mg Tablet) 10 mg PO Q4H PRN PRN Reason: Pain, Moderate (Pain Scale 4-6 Sodium Chloride (0.9 % Sodium Chloride Flush 3 Ml Syringe) [facility] Admin: 06/27/21 00:25 Dose: 3 ml Documented by: Time Spent With Patient Time: Total time spent is greater than 50% in coordination of care (as documented) at patient's floor/unit and/or counseling patient: Time with patient: 15 - 24 minutes Quality Stroke Does the patient have a stroke diagnosis?: No VTE Prior VTE?: No VTE Risk Level:: Medical - moderate - high VTE Device Contraindication: Treatment Not Indicated VTE Drug Contraindication: N/A - Med Ordered
[2021-06-27 08:53] VITALS: BP 157/65; PULSE 74
[2021-06-27] MEDS: lisinopriL 10 MG TABLET PO (08:53)
[2021-06-27 09:21] VITALS: O2SAT 93
--- NOTE | 2021-06-27 11:00 | MHC.CM.PN ---
Patient has been medically cleared for dc to home today, no services. CM met with Patient at bedside, addressed second IMM and provided Patient with the original and placed a copy on the chart. Per RN CM, Eliquis is covered by Patient's insurance.
--- NOTE | 2021-06-27 11:03 | MHC.CM.PN ---
CORRECTION TO PREVIOUSE NOTE- NO ELIQUIS!
--- NOTE | 2021-06-27 11:36 | P.DS_ITS ---
DS: Providers Provider Date of Service: 06/27/21 Date of admission: 06/22/21 15:59 Date of discharge: 06/27/21 Primary care physician: Javi Schmitz MD Consults: 06/23/21 08:17 Consult to Gastroenterology Routine Consulting Provider: Aman Steward Reason for consultation: gallstone pancreatitis 06/23/21 08:18 Consult to General Surgery Routine Consulting Provider: Rachel Morales Reason for consultation: sbo Has provider been notified: No Attending physician on discharge: Andressa Bai Discharging clinician: Andressa Bai DS: Diagnosis Discharge Diagnosis (1) Acute gallstone pancreatitis: Status: Acute DS: Summary Hospital Course Hospital Course: 65 year old female with HTN controlled with meds, HLD on lipitor, obesity here with abdominal pain that started around 3 a, initially starting as pressure and then became difuse abdominal pain 8/10, constant, no radiation, associated with nausea but no vomitting, no fever. She took 2 tums with no difference, didn't feel like eating, was finally advised by sister in law to come. CT shows gallstones and Lipase level is over 2000 Hospital course 65-year-old female with obesity, hypertension, hyperlipidemia presenting with abdominal pain and found to have Acute gallstone pancreatitis, initially treated with IV fluids and analgesic, once LFTs and lipase improved patient Underwent laparoscopic cholecystectomy 06/26/21 post surgery patient has been doing fine this morning she has minimal pain no nausea vomiting tolerated low- fat diet therefore being discharged home on oxycodone q.6 hours as needed, instructed to follow surgical recommendation and to have outpatient follow-up with General surgery in 2 weeks time. Will resume Lipitor since LFTs is normal Patient with history of hypertension noted to have elevated blood pressure therefore dose of lisinopril has increased from 5-10 mg daily Time Spent with Patient Time attestation: Total time spent providing and/or coordinating discharge services: Discharge coordination time: Greater than 30 minutes Quality: Stroke Does the patient have a stroke diagnosis?: No Physical Exam Vital Signs: Vital Signs: Last Vital Signs Temp 98.4 F 06/27/21 07:03 Pulse 74 06/27/21 08:53 Resp 22 H 06/27/21 07:03 BP 157/65 H 06/27/21 08:53 Pulse Ox 93 06/27/21 09:21 Body Mass Index 36.8 General alert oriented x3 ,no acute distress.? Neck supple no JVD. CVS? regular rate rhythm, Respiratory lungs clear to auscultation, no respiratory distress, no wheeze, no rhonchi. Gastrointestinal abdomen soft, mild discomfort at site of incision, no guarding , no rigidity. Extremities no edema. Neuro nonfocal , speech clear. Skin no rash DS: Data Data Completed and Pending Pending studies at discharge: Pending at discharge 06/26/21 10:50 Surgical [PTH] Routine Labs on day of discharge: Laboratory Results - last 24 hr 06/26/21 08:35 Blood Type A Positive Antibody Screen POSITIVE Antibody Identification Cold Antibody Blood Bank Comment Technical Preliminary micro results at discharge 06/22/21 17:50 Blood Culture - Preliminary Blood - Arterial No growth after 48 hours. 06/22/21 17:50 Blood Culture - Preliminary Blood - Arterial No growth after 48 hours. Discharge Plan Discharge Patient Disposition: Home, Self-Care Discharge Diagnosis: Acute gallstone pancreatitis uncontrolled blood pressure Referrals: Javi Schmitz MD [Primary Care Provider] - 1 Week Kali Carpio MD [Physician] - 1 Week Discharge Medications: New lisinopril 10 mg Tablet 10 mg PO DAILY Qty: 30 RF: 0 oxycodone 5 mg Tablet 5 mg PO Q6H PRN (Reason: Pain, Moderate (Pain Scale 4-6) Qty: 14 RF: 0 Continued latanoprost 0.005 % drops 1 drp ophthalmic (eye) BEDTIME RF: 0 atorvastatin 20 mg tablet 1 tab PO DAILY RF: 0 Discontinued lisinopril 5 mg tablet 1 tab PO DAILY RF: 0 Discharge Orders: Discharge Order (Routine); Ordered 06/27/21 Ordered By: Andressa Bai Diet: low fat, low cholesterol Activity on Discharge: As tolerated Stand Alone Forms: Patient Portal Discharge page Activity Restrictions/Additional Instructions: If the incision area is tender, you may apply an ice pack for short intervals (No more than 20 minutes on, followed by at least 20 minutes off). Do not apply heat. Do not use creams, lotions, or topical antibiotics unless instructed to do so by your surgeon. These can cause infection or allergic reaction. OK to shower Okay to change dressings with Band-Aids No lifting more than 20 lb No strenuous activities Call the office for follow-up in 2 weeks - with Dr. Carpio Call Your Doctor If: -Your temperature exceeds 101.5? F -You experience excessive pain or swelling -You have an unexpected reaction to medication -You have excessive bleeding -You experience continued vomiting/nausea -Your incision begins to separate -Your incision shows signs of infection such as increased redness, swelling, excessive pain, drainage (light blood or clear fluid is normal) or heat Care Plan Goals: Follow low-fat diet/take pain meds as Health Concerns: Hypertension/uncontrolled blood pressure dose of lisinopril increased to 10 mg continue follow BP closely Plan of Treatment: Outpatient follow-up with Dr. Carpio in 2 weeks Assessment: As above
--- NOTE | 2021-06-27 13:36 | HO.POSTANES ---
Post Anesthesia Evaluation Post Anesthesia Evaluation Vital Signs: Vital Signs Temp Pulse Resp BP Pulse Ox 06/27/21 09:21 93 06/27/21 08:53 74 157/65 H 06/27/21 07:03 98.4 F 74 22 H 157/65 H 93 Anesthesia: General Endotracheal-GETA Mental Status: Awake Pain Control: Satisfactory Nausea/Vomiting: None Hydration: Adequate Anesthesia-Related Issues: No Anes. Related Issues
== END 2021-06-27 12:45 | disposition home or self-care (01) | DRG 419 ==
LOC: HO.ED 10:06 → HO.EDOVER 16:06 → HO.IMC 06-23 00:20
PROVIDERS: Physician Assistant; Surgery; Admitting Provider Internal Medicine; Emergency Provider Emergency Medicine Emergency Medical Services; PCP Internal Medicine; Visit Provider Hospitalist
PROC: 0FT44ZZ Resection of Gallbladder, Percutaneous Endoscopic Approach (ICD-10-PCS; CPT 47562; principal; 2021-06-26 09:30)
DX: K85.10 Biliary acute pancreatitis without necrosis or infection (principal); K80.50 Calculus of bile duct without cholangitis or cholecystitis without obstruction; I10 Essential (primary) hypertension; J02.9 Acute pharyngitis, unspecified; E78.5 Hyperlipidemia, unspecified; E66.9 Obesity, unspecified; Z68.36 Body mass index [BMI] 36.0-36.9, adult; F17.210 Nicotine dependence, cigarettes, uncomplicated; Z71.6 Tobacco abuse counseling; Z20.822 Contact with and (suspected) exposure to COVID-19; Z79.899 Other long term (current) drug therapy
CPT/HCPCS: 36415; 74177; 80048; 80076; 81001; 83690; 83880; 84478; 84484; 85025; 86850; 86870; 86885; 86900; 86901; 87040; 87635; 88304; 93005; 96360; 96361; 99024; 99285; J0696; J1100; J1885; J2250; J2270; J2405; J3010; Q9967

== ENCOUNTER 2021-07-25 10:34 | Outpatient (REF) | payer MEDICARE, SELFPAY ==
[2021-07-25 12:16] LABS: Alanine Aminotransferase 19 U/L (0-31); Albumin Level 4.2 g/dL (3.5-5.0); Alkaline Phosphatase 98 U/L (39-117); Amylase 50 U/L (28-100); Anion Gap 13 (12-20); Aspartate Amino Transferase 20 U/L (5-31); Bilirubin Total 0.5 mg/dL (0.0-1.0); Blood Urea Nitrogen 18 mg/dL (9-16); Calcium 9.3 mg/dL (8.4-10.2); Carbon Dioxide 24 mmol/L (22-29); Chloride 108 mmol/L (96-108); Estimated Glomerular Filt Rate > 60; Glucose Random 122 mg/dL (60-115); Lipase 49 U/L (8-78); Potassium 4.6 mmol/L (3.3-5.1); Sodium 140 mmol/L (135-145); Total Protein 6.7 g/dL (6.5-8.0)
== END 2021-07-25 10:35 | disposition home or self-care (01) ==
LOC: HO.LAB 10:34
PROVIDERS: PCP Internal Medicine; Visit Provider Physician Assistant
DX: K85.10 Biliary acute pancreatitis without necrosis or infection (principal)
CPT/HCPCS: 36415; 80053; 82150; 83690

== ENCOUNTER 2021-12-24 10:52 | Outpatient (REF) | payer MEDICARE, SELFPAY ==
--- NOTE | ~2021-12-24 | MM_ITS ---
EXAMINATION: MM SCREENING DIGITAL BREAST TOMOSYNTHESIS, BILATERAL CLINICAL INFORMATION: Screening. Asymptomatic. The lifetime risk of breast cancer based on the Tyrer-Cuzick Model is 5%. COMPARISON: Mammography: 12/18/2020, 12/13/2019, 12/07/2018 TECHNIQUE: Digital breast tomosynthesis is performed in both the craniocaudal and mediolateral oblique views along with computer-aided detection (CAD). Synthesized 2D images are generated from the tomosynthesis. FINDINGS: There are scattered areas of fibroglandular density (ACR BI-RADS breast composition Category b). There are no significant masses, abnormal calcifications, or other abnormalities. No developing density or significant changes from prior exam. MM/MM tomosynthesis screening BI IMPRESSION: No mammographic evidence of malignancy. ASSESSMENT: BI-RADS 1: Negative RECOMMENDATION: Routine annual mammography screening. This patient's information was entered into a reminder system with a target due date for their next mammogram.
== END 2021-12-24 10:53 | disposition home or self-care (01) ==
LOC: HO.MAMMO 10:52
PROVIDERS: PCP Internal Medicine; Visit Provider Internal Medicine
DX: Z12.31 Encounter for screening mammogram for malignant neoplasm of breast (principal)
CPT/HCPCS: 77063; 77067

== ENCOUNTER 2022-06-10 08:47 | Outpatient (REF) | payer MEDICARE, SELFPAY ==
--- NOTE | ~2022-06-10 | XR_ITS ---
EXAMINATION: XR KNEE, LEFT CLINICAL INFORMATION: Osteoarthritis. COMPARISON: None TECHNIQUE: AP, lateral, and sunrise views of the left knee. FINDINGS: Mild medial compartment joint space narrowing with tiny marginal osteophytes. Tiny patellofemoral compartment marginal osteophytes. No osseous erosion. No fracture or dislocation. No significant joint effusion. No abnormal soft tissue calcification. XR/XR knee LT 3V IMPRESSION: Mild medial and patellofemoral compartment osteoarthritis.
== END 2022-06-10 08:48 | disposition home or self-care (01) ==
LOC: HO.XRAY 08:47
PROVIDERS: PCP Internal Medicine; Visit Provider Physician Assistant
DX: M17.0 Bilateral primary osteoarthritis of knee (principal)
CPT/HCPCS: 73562

== ENCOUNTER 2022-07-16 09:53 | Outpatient (REF) | payer MEDICARE, SELFPAY ==
--- NOTE | ~2022-07-16 | CT_ITS ---
EXAMINATION: CT HEAD WITHOUT CONTRAST CLINICAL INFORMATION: Transient cerebral ischemic attacks and related symptoms. COMPARISON: Head CT from 01/05/2017. TECHNIQUE: Contiguous axial imaging was performed from the skullbase to vertex without intravenous administration of contrast. This CT examination was performed using dose optimization techniques as appropriate, variously including the following: *Automated exposure control *Adjustment of mA and/or kV according to patient size (this includes techniques or standardized protocols for targeted exams where dose is matched to indication/reason for exam; i.e. extremities or head) *Use of iterative reconstruction technique DLP: 666 mGy-cm. FINDINGS: There is no evidence of acute intracranial hemorrhage or territorial infarction. No abnormal mass effect or midline shift is seen. No extra-axial fluid collections are identified similar degree of volume loss evident within the cerebellar hemispheres, more so on the right side. There is moderate diffuse parenchymal volume loss with ex vacuo dilatation of the ventricles. Mild chronic white matter microangiopathic changes are present, as on prior imaging. The osseous structures and soft tissues are normal. The mastoid air cells are well aerated. Mild ethmoid sinus mucosal thickening noted. CT/CT head/brain wo IV con IMPRESSION: No acute intracranial hemorrhage or territorial infarction. Moderate diffuse parenchymal volume loss and mild chronic white matter microangiopathy.
== END 2022-07-16 09:54 | disposition home or self-care (01) ==
LOC: HO.CT 09:53
PROVIDERS: PCP Internal Medicine; Visit Provider Physician Assistant
DX: G45.8 Other transient cerebral ischemic attacks and related syndromes (principal)
CPT/HCPCS: 70450

== ENCOUNTER 2022-12-30 10:39 | Outpatient (REF) | payer MEDICARE, SELFPAY ==
--- NOTE | ~2022-12-30 | MM_ITS ---
EXAMINATION: MM SCREENING DIGITAL BREAST TOMOSYNTHESIS, BILATERAL CLINICAL INFORMATION: Screening. Asymptomatic. The lifetime risk of breast cancer based on the Tyrer-Cuzick Model is 5%. COMPARISON: Mammography: 12/24/2021, 12/18/2020, 12/13/2019 TECHNIQUE: Digital breast tomosynthesis is performed in both the craniocaudal and mediolateral oblique views along with computer-aided detection (CAD). Synthesized 2D images are generated from the tomosynthesis. FINDINGS: There are scattered areas of fibroglandular density (ACR BI-RADS breast composition Category b). There are no significant masses, abnormal calcifications, or other abnormalities. No architectural abnormality or developing density or significant change from prior studies. The axilla are unremarkable. MM/MM tomosynthesis screening BI IMPRESSION: No mammographic evidence of malignancy. ASSESSMENT: BI-RADS 1: Negative RECOMMENDATION: Routine annual mammography screening. This patient's information was entered into a reminder system with a target due date for their next mammogram.
== END 2022-12-30 10:40 | disposition home or self-care (01) ==
LOC: HO.MAMMO 10:39
PROVIDERS: PCP Internal Medicine; Visit Provider Internal Medicine
DX: Z12.31 Encounter for screening mammogram for malignant neoplasm of breast (principal)
CPT/HCPCS: 77063; 77067

== ENCOUNTER 2023-07-14 10:56 | Outpatient (REF) | payer MEDICARE, SELFPAY | END 2023-07-14 10:57 | disposition home or self-care (01) | LOC: HO.MANLDS 10:56 | PROVIDERS: Visit Provider Physician Assistant | DX: Z13.89 Encounter for screening for other disorder (principal) ==

== ENCOUNTER 2023-07-15 07:29 | Outpatient (REF) | payer MEDICARE, SELFPAY ==
[2023-07-15 13:41] LABS: MANUAL DIFF FLAG NO
[2023-07-15 13:54] LABS: Basophils Absolute Auto 0.1 X10*3/uL (0.0-0.2); Basophils Percent Auto 1.3 % (0-2); Eosinophils Absolute Auto 0.1 X10*3/uL (0.0-0.4); Eosinophils Percent Auto 2.3 % (0-4); Hematocrit 42.3 % (37.0-47.0); Hemoglobin 13.8 g/dl (12.0-16.0); Imm Gran Abs Auto 0.02 X10*3/uL (0.00-0.03); Imm Gran Pct Auto 0.4 % (0.0-0.4); Lymphocytes Absolute Auto 1.6 X10*3/uL (1.2-4.9); Lymphocytes Percent Auto 30.3 % (20-40); Mean Corpuscular HGB Conc 32.6 g/dl (31.0-35.0); Mean Corpuscular Hemoglobin 29.7 pg (27.0-33.0); Mean Platelet Volume 9.8 fL (9.4-12.3); Monocytes Absolute Auto 0.4 X10*3/uL (0.1-1.2); Monocytes Percent Auto 6.9 % (2-11); Neutrophils Absolute Auto 3.1 x10*3/uL (2.0-8.3); Neutrophils Percent Auto 58.8 % (45-73); Platelet Count 171 X10*3/uL (160-400); Red Blood Count 4.65 X10*6/uL (4.20-5.50); Red Cell Distribution Width 13.2 % (11.0-16.0); White Blood Count 5.2 X10*3/uL (4.8-10.8)
[2023-07-15 14:11] LABS: Estimated Average Glucose 105 mg/dL; Hemoglobin A1c % 5.3 % (<6.0)
[2023-07-15 14:35] LABS: Alanine Aminotransferase 20 U/L (0-31); Albumin Level 4.2 g/dL (3.5-5.0); Alkaline Phosphatase 76 U/L (39-117); Anion Gap 14 (12-20); Aspartate Amino Transferase 21 U/L (5-31); Bilirubin Total 0.4 mg/dL (0.0-1.0); Blood Urea Nitrogen 18 mg/dL (9-16); Calcium 9.8 mg/dL (8.4-10.2); Carbon Dioxide 23 mmol/L (22-29); Chloride 108 mmol/L (96-108); Cholesterol 159 mg/dL (<200); Estimated Glomerular Filt Rate > 60; Glucose Random 101 mg/dL (60-115); HDL Cholesterol 54 mg/dL (>40); LDL Cholesterol Calculated 77 mg/dL (<100); Potassium 4.2 mmol/L (3.3-5.1); Sodium 141 mmol/L (135-145); Total Protein 6.9 g/dL (6.5-8.0); Triglycerides 141 mg/dL (<150)
== END 2023-07-15 07:30 | disposition home or self-care (01) ==
LOC: HO.MANLDS 07:29
PROVIDERS: Visit Provider Physician Assistant
DX: E78.2 Mixed hyperlipidemia (principal); R73.01 Impaired fasting glucose
CPT/HCPCS: 36415; 80053; 80061; 83036; 85025

== ENCOUNTER 2023-09-04 13:29 | Outpatient (AMB) | payer MEDICARE, SELFPAY ==
--- NOTE | 2023-09-04 13:32 | MHC.OFFVIS ---
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 She is doing well with concerns: External itching. Attempting to eat a healthy diet with calcium and vitamin D and stays active with exercise. Currently sexually active. Denies any vaginal dryness or irritation. STI testing offered; she declines. Last pap smear; many years ago, she reports they were normal. Last mammogram; up-to-date. Denies any family history of breast, ovarian or colon cancer. [facility] Medical History HLD (hyperlipidemia) HTN (hypertension) No known health problems Surgical History Hx of cholecystectomy Family History Brother CAD (coronary artery disease) Mother CAD (coronary artery disease) Social History Household Members: Spouse Housing: House Do you presently have visiting nurse or other home services: No Alcohol intake: current Alcohol intake frequency: holidays/special occasions only Patient Tobacco Use Status: Former Tobacco user Tobacco use type: Smokeless Tobacco e-Cigarette/Vaping Use: Currently Using Second Hand Smoke Exposure: No Advance Directives Date on File: 06/23/21 service: No Sexual orientation: Straight/Heterosexual Gender identity: Female Female Reproductive History Menstrual Total pregnancies: 2 Full term: 2 Number of Living Children: 2 Date of Mammogram: 12/30/22 Review of Systems Const All systems reviewed & are unremarkable except as noted in HPI and below Reports as per HPI Eyes Reports no additional complaints ENT Reports no additional complaints Card Reports no additional complaints Resp Reports no additional complaints GI Reports as per HPI and Reports no additional complaints Reports as per HPI Musc Reports no additional complaints Skin/Breast Reports as per HPI Neuro Reports no additional complaints Psych Reports no additional complaints Endo Reports no additional complaints Joey/Lymph Reports no additional complaints Aller/Immun Reports no additional complaints Physical Exam Vital Signs: Last Vital Signs BP 126/70 09/04/23 13:35 BMI result Body Mass Index 36.9 Const General: cooperative, healthy appearing, no acute distress, well developed and alert Orientation/consciousness: patient oriented x3 HEENT Head: Yes normal to inspection Eyes General: appearance normal, both eyes and all related structures Neck Neck: Yes normal visual inspection Thyroid: Thyroid normal Chest Chest palpation & inspection: normal inspection of the chest and other (no puckering, dimpling, peau de orange, retraction, discharge, masses) Breast/axilla inspection: normal inspection of the breasts Breast/axilla palpation: normal palpation of the breasts Resp Effort & Inspection: normal respiratory effort GI Inspection: Yes normal to inspection Palpation (GI): Soft to palpation Rectal Exam - Female: deferred Other: External hypopigmentation noted scattered over the vulvar from the clitoris to the anus region, bilateral labia, perineal parchment paper appearance. No excoriation. General: Yes bladder normal to palpation External Female Exam: normal appearance of the urethra Speculum Exam - Vagina: normal appearance of the vagina, normal palpation and normal vaginal discharge Speculum Exam - Cervix: normal appearance of the cervix and normal palpation Bimanual exam- vagina & uterus: normal bimanual exam, normal palpation, uterine size normal, bladder normal to palpation, normal palpation and non-tender Bimanual Exam- Adnexa, other: no masses Skin General skin exam: no rashes or lesions noted Rashes: no rashes Neuro General: patient oriented x3 Cognition (Neuro): normal cognition Extrem General: Yes normal to inspection Psych Attitude: cooperative Thought process: Normal thought process present Assessment & Plan Assessment & Plan (1) Encounter for well woman exam with routine gynecological exam: Code(s): Z01.419 - Encounter for gynecological examination (general) (routine) without abnormal findings (2) 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 Indication to rule out vulvar abnormalities in diagnose for conditions including lichen sclerosus, or other dermatological condition versus JAX. She prefers not to have a biopsy due to the nature of the area being sampled and requests just treatment for this I declined right to just treat, I do not agree with that plan, I believe that it is in her best to have a proper diagnosis of what were treating, or consider evaluation with a specialist if needed. All of her questions and concerns were addressed to the best of my ability and shared decision making. She is agreeable to the plan of care. She asked if she could come after her next birthday following the holidays, and left the room to book her appointment at the welcome desk agent. Current recommendations for pap smears per ASCCP guidelines. Breast awareness, periodic self breast exams and yearly mammogram. Maintain a healthy lifestyle, well balanced diet including Calcium 1,200 mg and Vitamin D 600 IU daily, and routine exercise. Contact the office with any postmenopausal bleeding. All of her questions and concerns were addressed to the best of my ability. RTO in 1 year for annual farm crew leader exam. Orders: Orders Pap Smear Today Z01.419 - Encounter for gynecological examination (general) (routine) without abnormal findings Bacterial Vaginosis Panel Today Z01.419 - Encounter for gynecological examination (general) (routine) without abnormal findings Coding Level of Care Code Est Pt Prev Care >65y(86512) Diagnoses Encounter for well woman exam with routine gynecological exam Z01.419 Leukoplakia of vulva N90.4
[2023-09-04 13:35] VITALS: BP 126/70; BMI 36.9
== END 2023-09-04 14:20 | disposition home or self-care (01) ==
PROVIDERS: PCP Internal Medicine; Visit Provider Advanced Practice Midwife
DX: Z01.419 Encounter for gynecological examination (general) (routine) without abnormal findings (principal); N90.4 Leukoplakia of vulva
CPT/HCPCS: 99397

== ENCOUNTER 2023-09-04 13:29 | Outpatient (REF) | payer MEDICARE, SELFPAY ==
[2023-09-06 11:34] LABS: BV Int Neg Control Negative (Negative); BV Int Pos Control Positive (Positive)
[2023-09-10 21:38] LABS: HPV mRNA E6/E7 rflx Not Detected (Not Detected)
== END 2023-09-04 13:30 | disposition home or self-care (01) ==
LOC: HO.LNP 13:29
PROVIDERS: PCP Internal Medicine; Visit Provider Advanced Practice Midwife
DX: Z01.419 Encounter for gynecological examination (general) (routine) without abnormal findings (principal); Z11.51 Encounter for screening for human papillomavirus (HPV); N90.4 Leukoplakia of vulva
CPT/HCPCS: 87480; 87510; 87624; 87660; 88142

== ENCOUNTER 2023-10-16 10:27 | Outpatient (AMB) | payer MEDICARE, SELFPAY ==
[2023-10-16 10:42] VITALS: BP 132/88; BMI 36.7
--- NOTE | 2023-10-16 10:42 | A.OFFVIS_ITS ---
Intake Vital Signs 3 10/16/23 10:42 Height 5 ft 4 in Weight 213 lb 13.574 oz BMI 36.7 BP 132/88 Intake Visit Reasons: Skin biopsy Steel Placer Required: No Information Interpreted: non-clinical & clinical Civil Laboratory Technician: Civil Laboratory Technician Present (Danica Torrezannabella MALLORY) Accompanied by: Self / Same As Patient Allergies No Known Allergies [No Known Allergies*] Allergy (Verified 10/16/23 10:43) Is last menstrual period known: Yes Post menopausal: Yes HPI HPI Comments 2 History of Present Illness0 Details She is here for her skin biopsy due to history of vulvar itching and hypopigmentation noted on her last exam. PFSH Medical History HLD (hyperlipidemia) HTN (hypertension) No known health problems Surgical History Hx of cholecystectomy Family History Brother CAD (coronary artery disease) Mother CAD (coronary artery disease) Social History Household Members: Spouse Housing: House Do you presently have visiting nurse or other home services: No Alcohol intake: current Alcohol intake frequency: holidays/special occasions only Patient Tobacco Use Status: Former Tobacco user Tobacco use type: Smokeless Tobacco e-Cigarette/Vaping Use: Currently Using Second Hand Smoke Exposure: No Advance Directives Date on File: 06/23/21 service: No Sexual orientation: Straight/Heterosexual Gender identity: Female Review of Systems Const All systems reviewed & are unremarkable except as noted in HPI and below Endo Reports no additional complaints Physical Exam Vital Signs: Last Vital Signs BP 132/88 10/16/23 10:42 BMI result Body Mass Index 36.7 Const General: cooperative, healthy appearing and no acute distress Other: Vulvar hypopigmentation, no excoriations or lesions Female genitals images: 2 1. Biopsy site Psych Appearance: well kempt Attitude: cooperative Thought process: Normal thought process present Office Procedures Skin Biopsy Details: Vulvar Biopsy: left labia Preop Diagnosis: Vulvar biopsy. The patient was consented for a vulvar skin biopsy procedure today. The purpose of the procedure is to rule out any skin abnormalities in the area of concern(s) including: JAX, or skin conditions such as lichen sclerosis. All the risks and benefits were reviewed. The risk of the procedure including: pain, bleeding, swelling, bruising, injury to nerves blood supply, and surrounding tissue, scarring, and permanent skin discoloration. All of her questions and concerns were addressed to the best of my ability and shared decision making. She is agreeable to the plan of care. The patient was placed in the dosal lithotomy position. Using aseptic technique for the procedure the biopsy area was cleansed and prepped with Betadine solution. The skin area was anesthetized with Lidocaine 1% using a 3cc syringe and a 25g needle, 0.5cc was injected perpendicular into the dermis at the biopsy site until elevation was noted. A Shave biopsy technique was utilized. The bleeding site was minimal and controlled by direct pressure for several seconds. Vaseline ointment and gauze dressing was applied to the biopsy site. The patient tolerated the procedure well and left the department in good condition. Post biopsies skin care: Keep the area clean and dry. Apply Vaseline to the area as directed for the 1st week. Wear loose clothing and avoid intimacy until well healed. No intimacy until well healed. Report any signs of infection: Fever flu-like symptom, increased pain, redness, any foul odor or pus discharge. Return to the office in 2 weeks for biopsy results. Call sooner if any concerns. All of her questions and concerns were addressed to the best of my ability and shared decision making. She is agreeable to the plan of care. This note is constructed using voice recognition software. While every effort has been made to ensure accuracy, bookmobile driver errors may have been included. 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 Return to the office in 2 weeks for results and plan of care. Orders: Orders 2 Surgical Today N90.89 - Other specified noninflammatory disorders of vulva and perineum Coding Level of Care Code Procedure Only Diagnoses Leukoplakia of vulva N90.4
== END 2023-10-16 11:14 | disposition home or self-care (01) ==
PROVIDERS: PCP Internal Medicine; Visit Provider Advanced Practice Midwife
DX: N90.4 Leukoplakia of vulva (principal)
CPT/HCPCS: 56605

== ENCOUNTER 2023-10-16 10:27 | Outpatient (REF) | payer MEDICARE, SELFPAY | END 2023-10-16 10:28 | disposition home or self-care (01) | LOC: HO.LNP 10:27 | PROVIDERS: PCP Internal Medicine; Visit Provider Advanced Practice Midwife | DX: N90.89 Other specified noninflammatory disorders of vulva and perineum (principal); N89.8 Other specified noninflammatory disorders of vagina; N90.4 Leukoplakia of vulva | CPT/HCPCS: 56605; 88305; 88312 ==

== ENCOUNTER 2023-11-13 12:38 | Outpatient (AMB) | payer MEDICARE, SELFPAY ==
--- NOTE | 2023-11-13 12:43 | MHC.OFFVIS ---
Intake Vital Signs 11/13/23 12:46 Height 5 ft 4 in Weight 213 lb 13.574 oz BMI 36.7 BP 120/82 Intake Visit Reasons: 2 week bx results Rf Test Technician Required: No Information Interpreted: non-clinical & clinical Supervisor Uranium Processing: Supervisor Uranium Processing Present Accompanied by: Self / Same As Patient Allergies No Known Allergies [No Known Allergies*] Allergy (Verified 11/13/23 12:46) Is last menstrual period known: Yes Post menopausal: Yes HPI HPI Comments History of Present Illness Details Patient is here today for her test results on her skin biopsy. She admits to occasional itching irritation to the region of the vulva. She declines a pelvic examination today. She reports that the biopsy site is well healed and she has no concerns. [facility] Medical History (Updated 11/13/23 @ 13:04 by Renae Bennett CNM) Lichen sclerosus HLD (hyperlipidemia) HTN (hypertension) No known health problems Surgical History Hx of cholecystectomy Family History Brother CAD (coronary artery disease) Mother CAD (coronary artery disease) Social History Household Members: Spouse Housing: House Do you presently have visiting nurse or other home services: No Alcohol intake: current Alcohol intake frequency: holidays/special occasions only Patient Tobacco Use Status: Former Tobacco user Tobacco use type: Smokeless Tobacco e-Cigarette/Vaping Use: Currently Using Second Hand Smoke Exposure: No Advance Directives Date on File: 06/23/21 service: No Sexual orientation: Straight/Heterosexual Gender identity: Female Review of Systems Const All systems reviewed & are unremarkable except as noted in HPI and below Endo Reports no additional complaints Physical Exam Vital Signs: Last Vital Signs BP 120/82 11/13/23 12:46 BMI result Body Mass Index 36.7 Const General: cooperative, healthy appearing and no acute distress Psych Appearance: well kempt Attitude: cooperative Thought process: Normal thought process present Results Reviewed Results Reviewed: Name: Marija Camacho Age/Sex: 68/F Attending: Renae Bennett CNM : 1955 Submitted by: Renae Bennett CNM Copies to: Javi Schmitz MD MR #: [id number] Status: DEP REF Collected: 10/16/23 Location: [facility] Received: 10/19/23 Diagnosis Vulva, left upper lesion, biopsy: Lichen sclerosus. Clinical History Vulva lesion Microscopic Description Microscopic sections reviewed. PAS-F is negative for fungi with appropriate control. Material Received Left upper vulva lesion Gross Description Received in formalin labeled ?upper l. labia? is a 0.45 cm pale, duncan-white rectangular fragment of mucosa, submitted in toto in a cassette labeled A. CEDS Special studies ordered and performed: PAS-F on A1. Copies To Javi Schmitz MD [address] [place] [address] Renae Bennett CNM [address] [place] [address] [place] [address] NOTE: Unless otherwise stated, all tissue is formalin-fixed and paraffin-embedded. Some or all of the immunohistochemical tests reported herein may have been developed and their performance characteristics determined by [facility]. They have not been cleared or approved by the U.S. Food and Drug Administration (FDA). However, the FDA has determined that such clearance or approval is not necessary. This laboratory is certified under the Clinical Laboratory Improvement Amendments of 1988 (CLIA) as qualified to perform high complexity clinical laboratory testing. Electronically Signed By: Criselda Pratt 10/20/23 3461 Patient: Marija Camacho Age/Sex: 68/F MR#: [id number] Page 1 of 1 Assessment & Plan Assessment & Plan (1) Lichen sclerosus: Code(s): L90.0 - Lichen sclerosus et atrophicus Plan: Discussed: Discussed: Pathology resulting in Lichen Sclerosus- this is a benign, chronic, progressive dermatologic condition characterized by marked inflamation, epithelial thinning accompanied by pruritus and pain. There is a small increased risk of squamous cell cancer of the vulva in patients with lichen sclerosus. Adequate treatment of the disease seems to be associated with a reduced risk of development of neoplasia. Treatment with Clobetasol propionate 0.05% ointment to be applied daily at night for 6 to 12 weeks, followed by maintenance therapy two to three times per week. Discussed medication use and taper dose, follow-up in 2-3 months for skin check. All of her questions and concerns were addressed to the best of my ability and shared decision making. She is agreeable to the plan of care. This note is constructed using voice recognition software. While every effort has been made to ensure accuracy, photoengraving apprentice errors may have been included. Medications: New clobetasol 0.05% (Temovate) apply a thin coat to the area at bedtime x 2 weeks then every other day for 2 weeks, then twice a week 1 appl topical DAILY 45 grams 2RF Coding Level of Care Code Est Pt Level 3 (25879) Diagnoses Lichen sclerosus L90.0
[2023-11-13 12:46] VITALS: BP 120/82; BMI 36.7
== END 2023-11-13 13:02 | disposition home or self-care (01) ==
PROVIDERS: PCP Internal Medicine; Visit Provider Advanced Practice Midwife
DX: L90.0 Lichen sclerosus et atrophicus (principal)
CPT/HCPCS: 99213

== ENCOUNTER → 2023-11-13 12:38 | Outpatient (BNVA) | payer MEDICARE, SELFPAY | PROVIDERS: PCP Internal Medicine; Visit Provider Advanced Practice Midwife | DX: L90.0 Lichen sclerosus et atrophicus (principal) | CPT/HCPCS: 99212 ==

== ENCOUNTER 2024-01-05 10:07 | Outpatient (REF) | payer MEDICARE, SELFPAY ==
--- NOTE | ~2024-01-05 | MM_ITS ---
EXAMINATION: MM SCREENING DIGITAL BREAST TOMOSYNTHESIS, BILATERAL CLINICAL INFORMATION: Screening. Asymptomatic. COMPARISON: Mammography: This study is compared with prior exams dating back to 2019. TECHNIQUE: Digital breast tomosynthesis is performed in both the craniocaudal and mediolateral oblique views along with computer-aided detection (CAD). Synthesized 2D images are generated from the tomosynthesis. FINDINGS: There are scattered areas of fibroglandular density (ACR BI-RADS breast composition Category b). There are no significant masses, abnormal calcifications, or other abnormalities. There are few, bilateral, benign calcifications in each breast. MM/MM tomosynthesis screening BI IMPRESSION: No mammographic evidence of malignancy. ASSESSMENT: BI-RADS BI-RADS 2 - Benign Findings RECOMMENDATION: Routine annual mammography screening. 1 year F/U This examination should not preclude the clinical evaluation of a suspicious palpable abnormality. This patient's information was entered into a reminder system with a target due date for their next mammogram.
== END 2024-01-05 10:08 | disposition home or self-care (01) ==
LOC: HO.MAMMO 10:07
PROVIDERS: PCP Internal Medicine; Visit Provider Internal Medicine
DX: Z12.31 Encounter for screening mammogram for malignant neoplasm of breast (principal)
CPT/HCPCS: 77063; 77067

== ENCOUNTER → 2024-01-05 10:15 | Outpatient (BNV) | payer MEDICARE, SELFPAY | PROVIDERS: PCP Internal Medicine; Visit Provider Radiology Diagnostic Radiology | DX: Z12.31 Encounter for screening mammogram for malignant neoplasm of breast (principal) | CPT/HCPCS: 77063; 77067 ==

== ENCOUNTER 2024-02-11 09:58 | Outpatient (AMB) | payer MEDICARE, SELFPAY ==
--- NOTE | 2024-02-11 10:11 | A.OFFVIS_ITS ---
Vital Signs 02/11/24 10:15 Height 5 ft 4 in Weight 213 lb BMI 36.6 BP 122/80 Intake Visit Reasons: Skin check Dry Mop Maker Required: No Information Interpreted: non-clinical & clinical Anodizing Line Operator: Anodizing Line Operator Present (Mayankyn) Allergies No Known Allergies [No Known Allergies*] Allergy (Verified 02/11/24 10:14) Is last menstrual period known: No Post menopausal: Yes Patient : No HPI Comments Details: Patient is here today for a follow up on her treatment for lichen sclerosus, currently using Temovate now twice a week. She reports no itching or irritation and has no other concerns. [facility] Medical History Lichen sclerosus HLD (hyperlipidemia) HTN (hypertension) No known health problems Surgical History Hx of cholecystectomy Family History Brother CAD (coronary artery disease) Mother CAD (coronary artery disease) Social History Household Members: Spouse Housing: House Do you presently have visiting nurse or other home services: No Alcohol intake: current Alcohol intake frequency: holidays/special occasions only Patient Tobacco Use Status: Former Tobacco user Tobacco use type: Smokeless Tobacco e-Cigarette/Vaping Use: Currently Using Second Hand Smoke Exposure: No Advance Directives Date on File: 06/23/21 service: No Sexual orientation: Straight/Heterosexual Gender identity: Female Female Reproductive History Menstrual control method: none Date of last pap smear: 09/07/23 (negative) Review of Systems Const All systems reviewed & are unremarkable except as noted in HPI and below Endo Reports no additional complaints Physical Exam Vital Signs: Last Vital Signs BP 122/80 02/11/24 10:15 BMI result Body Mass Index 36.6 Const General: cooperative, healthy appearing and no acute distress Other: External inspection only: atrophic changes with some loss of architecture, and hypopigmentation in the timo clitoral region, no lesions or or excoriations. Biopsy site is well healed. Psych Appearance: well kempt Attitude: cooperative Thought process: Normal thought process present Assessment & Plan Assessment & Plan (1) Lichen sclerosus et atrophicus of the vulva: Code(s): N90.4 - Leukoplakia of vulva Plan Discussed: The progression lichen sclerosus in the vulvar region can lead to abnormal cellular changes leading to JAX if untreated. Plan to change to [place]- alternative per insurance cover appears to be Synalar, use by weekly. Plan skin check in 3 months, unless she has any concerns or starts to become irritated advised to call the office. All of her questions and concerns were addressed to the best of my ability and shared decision making. She is agreeable to the plan of care. This note is constructed using voice recognition software. While every effort has been made to ensure accuracy, stationary engineer errors may have been included. Medications: New fluocinolone 0.025% (Synalar) Apply a thin coat at bedtime twice a week as directed 1 appl topical .Twice a week 3 months 60 grams 0RF Discontinued clobetasol 0.05% (Temovate) apply a thin coat to the area at bedtime x 2 weeks then every other day for 2 weeks, then twice a week Discontinued Reason: No Longer Medically Relevant 1 appl topical DAILY 45 grams 2RF Coding Level of Care Code Est Pt Level 3 (58507) Diagnoses Lichen sclerosus et atrophicus of the vulva N90.4
[2024-02-11 10:15] VITALS: BP 122/80; BMI 36.6
== END 2024-02-11 10:48 | disposition home or self-care (01) ==
PROVIDERS: PCP Internal Medicine; Visit Provider Advanced Practice Midwife
DX: N90.4 Leukoplakia of vulva (principal)
CPT/HCPCS: 99213

== ENCOUNTER → 2024-02-11 09:58 | Outpatient (BNVA) | payer MEDICARE, SELFPAY | PROVIDERS: PCP Internal Medicine; Visit Provider Advanced Practice Midwife | DX: N90.4 Leukoplakia of vulva (principal) | CPT/HCPCS: 99212 ==

== ENCOUNTER 2024-05-13 10:23 | Outpatient (AMB) | payer MEDICARE, SELFPAY ==
--- NOTE | 2024-05-13 10:27 | A.OFFVIS_ITS ---
Vital Signs 05/13/24 10:28 BP 130/80 Intake Visit Reasons: 3 month skin check Fire Management Technician: Fire Management Technician Present (Nellie) Allergies No Known Allergies [No Known Allergies*] Allergy (Verified 05/13/24 10:27) Is last menstrual period known: Yes HPI Comments Details: Patient is here today for a follow up on our lichen sclerosus, she reports since being on the lower dose corticosteroid she has a slightly more itching on occasion. Overall has no concerns with the use of medication. [facility] Medical History Lichen sclerosus HLD (hyperlipidemia) HTN (hypertension) No known health problems Surgical History Hx of cholecystectomy Family History Brother CAD (coronary artery disease) Mother CAD (coronary artery disease) Social History Household Members: Spouse Housing: House Do you presently have visiting nurse or other home services: No Alcohol intake: current Alcohol intake frequency: holidays/special occasions only Patient Tobacco Use Status: Former Tobacco user Tobacco use type: Smokeless Tobacco e-Cigarette/Vaping Use: Currently Using Second Hand Smoke Exposure: No Advance Directives Date on File: 06/23/21 service: No Sexual orientation: Straight/Heterosexual Gender identity: Female Review of Systems Const All systems reviewed & are unremarkable except as noted in HPI and below Endo Reports no additional complaints Physical Exam Vital Signs: Last Vital Signs BP 130/80 05/13/24 10:28 Const General: cooperative, healthy appearing and no acute distress Other: External inspection only: Mild loss of architecture in the timo clitoral reg ion, mild hypopigmentation on the perianal region, no lesions, thickening, erosions, or parchment noted. Psych Appearance: well kempt Attitude: cooperative Thought process: Normal thought process present Assessment & Plan Assessment & Plan (1) Lichen sclerosus: Code(s): L90.0 - Lichen sclerosus et atrophicus Category: Medical (2) Follow-up encounter involving medication: Code(s): Z79.899 - Other senior living (current) drug therapy Plan Discussed: Medication use frequency of application, continue using twice a week can add an additional dose if particularly bothered by external itching. If persist to follow up in the office sooner. Avoid soap directly to the area, use of mild castile soap or equivalent w/unscented baby soap, rinse well, dry well, use of loose cotton clothing. Refills to be sent in next visit is scheduled for August of 2024 for her annual exam. Advised to follow up sooner if she has any concerns or is not responding to the regimen. All of her questions and concerns were addressed to the best of my ability and shared decision making. She is agreeable to the plan of care. This note is constructed using voice recognition software. While every effort has been made to ensure accuracy, water meter installer errors may have been included. Medications: Refilled fluocinolone 0.025% (Synalar) Apply a thin coat at bedtime twice a week as directed 1 appl topical .Twice a week 3 months 60 grams 1RF Coding Level of Care Code Est Pt Level 3 (44208) Diagnoses Lichen sclerosus L90.0 Follow-up encounter involving medication Z79.899
[2024-05-13 10:28] VITALS: BP 130/80
== END 2024-05-13 11:02 | disposition home or self-care (01) ==
PROVIDERS: PCP Internal Medicine; Visit Provider Advanced Practice Midwife
DX: L90.0 Lichen sclerosus et atrophicus (principal); Z79.899 Other long term (current) drug therapy
CPT/HCPCS: 99213

== ENCOUNTER → 2024-05-13 10:23 | Outpatient (BNVA) | payer MEDICARE, SELFPAY | PROVIDERS: PCP Internal Medicine; Visit Provider Advanced Practice Midwife | DX: L90.0 Lichen sclerosus et atrophicus (principal); Z79.899 Other long term (current) drug therapy | CPT/HCPCS: 99212 ==

== ENCOUNTER 2024-06-20 06:41 | Outpatient (REF) | payer MEDICARE, SELFPAY ==
[2024-06-20 06:58] LABS: MANUAL DIFF FLAG NO
[2024-06-20 07:48] LABS: Basophils Absolute Auto 0.1 X10*3/uL (0.0-0.2); Basophils Percent Auto 0.9 % (0-2); Eosinophils Absolute Auto 0.2 X10*3/uL (0.0-0.4); Eosinophils Percent Auto 3.3 % (0-4); Hematocrit 40.4 % (37.0-47.0); Hemoglobin 13.1 g/dl (12.0-16.0); Imm Gran Abs Auto 0.02 X10*3/uL (0.00-0.03); Imm Gran Pct Auto 0.3 % (0.0-0.4); Lymphocytes Absolute Auto 1.7 X10*3/uL (1.2-4.9); Lymphocytes Percent Auto 29.3 % (20-40); Mean Corpuscular HGB Conc 32.4 g/dl (31.0-35.0); Mean Corpuscular Hemoglobin 29.8 pg (27.0-33.0); Mean Platelet Volume 9.6 fL (9.4-12.3); Monocytes Absolute Auto 0.4 X10*3/uL (0.1-1.2); Monocytes Percent Auto 6.9 % (2-11); Neutrophils Absolute Auto 3.4 x10*3/uL (2.0-8.3); Neutrophils Percent Auto 59.3 % (45-73); Platelet Count 167 X10*3/uL (160-400); Red Blood Count 4.39 X10*6/uL (4.20-5.50); Red Cell Distribution Width 13.2 % (11.0-16.0); White Blood Count 5.8 X10*3/uL (4.8-10.8)
[2024-06-20 08:02] LABS: Estimated Average Glucose 111 mg/dL; Hemoglobin A1c % 5.5 % (<6.0); Total Hemoglobin (HGBA1C) 3207.8971 umol/L
[2024-06-20 08:21] LABS: Alanine Aminotransferase 15 U/L (0-31); Albumin Level 4.2 g/dL (3.5-5.0); Alkaline Phosphatase 78 U/L (39-117); Anion Gap 13 (12-20); Aspartate Amino Transferase 17 U/L (5-31); Bilirubin Total 0.4 mg/dL (0.0-1.0); Blood Urea Nitrogen 30 mg/dL (9-16); Calcium 9.5 mg/dL (8.4-10.2); Carbon Dioxide 25 mmol/L (22-29); Chloride 108 mmol/L (96-108); Cholesterol 153 mg/dL (<200); Estimated Glomerular Filt Rate > 60; Glucose Random 100 mg/dL (60-115); HDL Cholesterol 51 mg/dL (>40); LDL Cholesterol Calculated 75 mg/dL (<100); Potassium 4.3 mmol/L (3.3-5.1); Sodium 142 mmol/L (135-145); Total Protein 6.8 g/dL (6.5-8.0); Triglycerides 137 mg/dL (<150)
== END 2024-06-20 06:42 | disposition home or self-care (01) ==
LOC: HO.LAB 06:41
PROVIDERS: PCP Physician Assistant; Visit Provider Physician Assistant
DX: E78.2 Mixed hyperlipidemia (principal); R73.01 Impaired fasting glucose
CPT/HCPCS: 36415; 80053; 80061; 83036; 85025

== ENCOUNTER 2024-09-08 10:04 | Outpatient (AMB) | payer MEDICARE, SELFPAY ==
--- NOTE | 2024-09-08 10:05 | A.OFFVIS_ITS ---
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 She is doing well with concerns: itching in the right groin fold. History of LS and doing well with her topical medications. Currently not sexually active. Denies any vaginal dryness or irritation. Attempting to eat a healthy diet with calcium and vitamin D and stays active with exercise. Last pap smear; 2022-neg. Last mammogram; 2023. Colonoscopy is UTD. Denies any family history of breast, ovarian or colon cancer. [facility] Medical History Lichen sclerosus HLD (hyperlipidemia) HTN (hypertension) No known health problems Surgical History Hx of cholecystectomy Family History Brother CAD (coronary artery disease) Mother CAD (coronary artery disease) Social History Household Members: Spouse Housing: House Do you presently have visiting nurse or other home services: No Alcohol intake: current Alcohol intake frequency: holidays/special occasions only Patient Tobacco Use Status: Former Tobacco user Tobacco use type: Smokeless Tobacco e-Cigarette/Vaping Use: Currently Using Second Hand Smoke Exposure: No Advance Directives Date on File: 06/23/21 service: No Sexual orientation: Straight/Heterosexual Gender identity: Female Female Reproductive History Menstrual Total pregnancies: 2 Full term: 2 Number of Living Children: 2 Date of last pap smear: 09/04/23 (neg pap and hpv) Date of Mammogram: 01/05/24 ( birad 2) Review of Systems Const All systems reviewed & are unremarkable except as noted in HPI and below Reports as per HPI Eyes Reports no additional complaints ENT Reports no additional complaints Card Reports no additional complaints Resp Reports no additional complaints GI Reports as per HPI and Reports no additional complaints Reports as per HPI Musc Reports no additional complaints Skin/Breast Reports as per HPI Neuro Reports no additional complaints Psych Reports no additional complaints Endo Reports no additional complaints Joey/Lymph Reports no additional complaints Aller/Immun Reports no additional complaints Physical Exam Vital Signs: Last Vital Signs BP 120/80 09/08/24 10:06 BMI result Body Mass Index 36.0 Const General: cooperative, healthy appearing, no acute distress, well developed and alert Orientation/consciousness: patient oriented x3 HEENT Head: Yes normal to inspection Eyes General: appearance normal, both eyes and all related structures Neck Neck: Yes normal visual inspection Thyroid: Thyroid normal Chest Chest palpation & inspection: normal inspection of the chest and other (no puckering, dimpling, peau de orange, retraction, discharge, masses) Breast/axilla inspection: normal inspection of the breasts Breast/axilla palpation: normal palpation of the breasts Resp Effort & Inspection: normal respiratory effort GI Inspection: Yes normal to inspection Palpation (GI): Soft to palpation Rectal Exam - Female: deferred Other: External-mild hypo pigmentation with agglutination in the timo clitoral region no erythema excoriations, fissures, or lesions. Right groin crease appears mildly erythematous not fungal appearing. General: Yes bladder normal to palpation External Female Exam: normal external appearance and normal appearance of the urethra Speculum Exam - Vagina: normal appearance of the vagina, normal palpation, normal vaginal discharge and vagina atrophic Speculum Exam - Cervix: normal appearance of the cervix and normal palpation Bimanual exam- vagina & uterus: normal bimanual exam, normal palpation, uterine size normal, bladder normal to palpation, normal palpation and non-tender Bimanual Exam- Adnexa, other: no masses Skin General skin exam: no rashes or lesions noted Rashes: no rashes Neuro General: patient oriented x3 Cognition (Neuro): normal cognition Extrem General: Yes normal to inspection Psych Attitude: cooperative Thought process: Normal thought process present Assessment & Plan Assessment & Plan (1) Encounter for well woman exam with routine gynecological exam: Code(s): Z01.419 - Encounter for gynecological examination (general) (routine) without abnormal findings Category: Medical Plan Discussed: Current recommendations for pap smears per ASCCP guidelines. Breast awareness, periodic self breast exams and yearly mammogram. Maintain a healthy lifestyle, well balanced diet including Calcium 1,200 mg and Vitamin D 800 IU daily, and routine exercise. Refill on ointment for LS treatment advised to continue use twice weekly. May use a small amount to the right groin to see the itching will resolve. Additionally recommended not to wear standard underwear/brief, boxer's pants loose cotton underwear to avoid any irritation in the crease, if symptoms persist can follow up in the office sooner. Contact the office with any postmenopausal bleeding. Patient verbalizes understanding and agrees to the plan of care. She was given opportunity to ask questions and all questions were answered to the best of my ability. Return to the office 1-2years for annual exam, minimal 1 year for medication review follow up, or as needed. This note is constructed using voice recognition software. While every effort has been made to ensure accuracy, senior medical director errors may have been included. 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 Medications: Refilled fluocinolone 0.025% (Synalar) Apply a thin coat at bedtime twice a week as directed 1 appl topical .Twice a week 60 grams 1RF 3 months Coding Level of Care Code Est Pt Prev Care >65y(91577) Diagnoses Encounter for well woman exam with routine gynecological exam Z01.419
[2024-09-08 10:06] VITALS: BP 120/80; BMI 36.0
--- OUTSIDE RECORDS SUMMARY | 2024-09-08 10:14 | XMS_ITS | Data Portability ---
Author Organization [facility] Address [address] [place] [address] Assessment Encounter Date Assessment Date Assessment LastModified by Organization Details LastModified Time 02/25/2022 02/25/2022 Patient agreed and verbally consents to this audio and video Telehealth appt via a secure platform [email or web address] Not available 02/25/2022 14:51:23 06/03/2022 06/03/2022 Patient agreed and verbally consents to this audio and video Telehealth appt via a secure platform [email or web address] Not available 06/03/2022 14:13:09 06/23/2022 06/23/2022 Patient agreed and verbally consents to this audio and video Telehealth appt via a secure platform [email or web address] Not available 06/23/2022 14:58:29 07/14/2023 07/14/2023 The patient denies little pleasure in activities they find enjoyable, feeling depressed, difficulties sleeping, feeling tired or having little energy, change in appetite, feeling guilty, overwhelmed or unmotivated. The patient denies suicidal ideation, thoughts of hurting themselves or others. Their mood is appropriate, they show good judgement and clear understanding of the conversation. They are orientated to time, place and person. They are not expressing any concerning thoughts or actions that would need further investigation and treatment for mental health. [email or web address] Not available 07/14/2023 10:36:37 Plan of Treatment Reminders Order Date Submit Date Provider Last Modified By Organization Details Last Modified Time Details Appointments None recorded. Lab hemoglobin A1c, QN, blood 2022 023 [facility], [address] [place] [address], [place], [address], 3 14:35:11 lipid panel, serum 2022 023 [facility], [address] [place] [address], [address], 3 10:39:53 CMP, serum or plasma 2022 023 [facility], [address] [place] [address], [address], 3 10:39:53 CBC w/ auto diff 2022 023 [facility], [address] [place] [address], [address], 3 10:39:53 CMP, serum or plasma 2023 024 [facility], [address] [place] [address], [address], 4 11:47:12 hemoglobin A1c, QN, blood 2023 024 [facility], [address] [place] [address], [address], 4 11:47:12 lipid panel, serum 2023 024 [facility], [address] [place] [address], [address], 4 11:47:12 CBC w/ auto diff 2023 024 [facility], [address] [place] [address], [address], 4 09:17:[address] referral 2022 023 [email or web address] Reed MD, [address] [place] [address] [place], [address], 11:32:48 orthopedic surgeon referral 2023 024 [email or web address] Solis MD, [address], [place], [address], 4 13:41:31 Procedures None recorded. Surgeries None recorded. Imaging XR, knee, 3 view 2021 [facility], [address] [facility], [place], [address], 11:40:43 MRI, brain, w/o contrast - Needs open MRI 2021 [email or web address] 10 [facility] ([facility]), [address], [place], [address], 08:20:59 Medication Orders Zithromax Z-Eron 250 mg tablet 2021 [id number], [address], [place], [id number], 14:10:33 prednisone 5 mg/5 mL oral solution 2021 [facility][id number], [address] [place], [place], [id number], 09:16:04 meloxicam 15 mg tablet 2021 [facility][id number], [address], [place], [id number], 14:12:32 atorvastat in 80 mg tablet 2021 [facility] #[id number], [address], [place], [id number], 2 17:33:55 Patient TargetsNo targets recorded. Patient InstructionsNo instructions recorded. 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 [facility] (Medical Records) [address] [place], [address], 06/17/2022 14:48:28 07/17/20 22 07/16/2022 CT, head + brain , w/o contr ast No observ ation [facility] ed. [email or web address] [address] [facility] [place], [address], 07/18/2022 17:30:37 01/01/20 23 12/30/2022 MAMMO , littlee devin, digit al, bilat eral No observ ation record ed. [email or web address] [address] [place], [address], 12/31/2022 16:03:46 01/11/20 24 01/05/2024 MAMMO , littlee devin, digit al, bilat eral No observ ation record ed. [email or web address] [address] [place], [address], 01/12/2024 09:06:49 Result Notes None recorded. Problems Name Problem SNOMED Code Status Onset Date Resolution Date Notes Provider Name and Address Organization Details Recorded Time Urinary incontinen ce 371379772 Active 2018 Not Available [facility] 12:56:37 Impaired fasting glycemia 211288338 Active 2018 Not Available [facility] 2 12:56:37 Multiple joint pain 29858260 Active 2018 Not Available [facility] 2 12:56:37 Decreased estrogen level 397880442 Active 2018 Not Available [facility] 2 12:56:37 Glaucoma 21203157 Active 2018 Not Available [facility] 2 12:56:37 Acute bronchitis 62529441 Active 2021 Not Available [facility] 2 12:56:37 Cough 37907219 Active 2021 Not Available [facility] 2 12:56:37 Osteoarthr itis of knee 421463016 Active 2021 Not Available [facility] 2 12:56:37 Transient cerebral ischemia 353126266 Active 2021 [address],[place], [address] , [facility] 2 14:47:48 Obstructiv e sleep apnea syndrome 14227686 Active 2022 MIRIAN TYLER [address],[place], [address] , [facility] 3 10:48:00 Bilateral osteoarthr itis of knees 9965639438740 07 Active 2022 MIR[address] T[address]ER [address],[place], [address] , [facility] 3 11:00:17 Sleep apnea 20635959 Active 2017 Not Available [facility] 2 12:56:37 Essential hypertensi on 17313021 Active 2017 Not Available [facility] 2 12:56:37 Hyperlipid emia 91871517 Active 2017 Not Available [facility] 2 12:56:37 Osteoarthr itis 142678362 Active 2023 [address],[place], [address] , [facility] 4 15:41:44 Gastric reflux 568587274 Active 2017 Not Available [facility] 2 12:56:37 Problem Notes None recorded. Procedures Surgical History Date Name Laterality Status Provider Name and Address Organization Details Recorded Time Removal of gallbladder completed MIRIAN TYLER [address] [facility],[place], [address], [facility] 07/01/2021 15:02:15 Imaging Results Imaging Date Name Status LastModified by Organiz ation Details LastModified Time 06/10/2022 XR, knee, 3 view completed [facility] (Medical Records) [address] [place] [address] [place], [address], 06/17/2022 14:48:28 07/16/2022 CT, head + brain, w/o contrast completed [facility] (Medical Records) [address] [place] [address], [address], 07/18/2022 17:30:37 12/30/2022 MAMMO, screening, digital, bilateral completed [email or web address] [address] [place], [address], 12/31/2022 16:03:46 01/05/2024 MAMMO, screening, digital, bilateral completed [email or web address] [address] [place], [address], 01/12/2024 09:06:49 Procedure Notes None recorded. Medical Equipment None Reported. Allergies No known drug allergies Medications Name Sig Start Date Stop Date Status Note LastModified by Organization Details LastModified Time latanoprost 0.005 % eye drops INSTILL 1 DROP IN BOTH EYES EVERY DAY AT BEDTIME active Not Available Not Available No t Available atorvastati n 80 mg tablet TAKE 1 TABLET BY MOUTH EVERY DAY 07/18 completed Not Available Not Available Not Available doxycycline hyclate 100 mg capsule TAKE 1 CAPSULE BY MOUTH TWICE DAILY FOR 10 DAYS 05/18 completed Not Available Not Available Not Available atorvastati n 20 mg tablet TAKE 1 TABLET DAILY 06/23 completed Not Available Not Available Not Available prednisolon e sodium phosphate 15 mg/5 mL (3 mg/mL) oral solution TAKE 2 ML BY MOUTH EVERY DAY FOR 7 DAYS 06/13 completed Not Available Not Available Not Available azithromyci n 250 mg tablet TAKE 2 TABLETS (500 MG) BY ORAL ROUTE ONCE DAILY FOR 1 DAY THEN 1 TABLET (250 MG) BY ORAL ROUTE ONCE DAILY FOR 4 DAYS 06/03 completed Not Available Not Available Not Available meloxicam 15 mg tablet TAKE 1 TABLET DAILY WITH A MEAL active Not Available Not Available No t Available lisinopril 20 mg tablet TAKE 1 TABLET DAILY active Not Available Not Available No t Available prednisone 5 mg/5 mL oral solution Take 5 mL every day by oral route for 7 days. 06/13 completed Not Available Not Available Not Available lisinopril 10 mg tablet 2 po qd 01/09 completed Not Available Not Available Not Available aspirin 81 mg chewable tablet Chew 1 tablet every day by oral route. active Not Available Not Available No t Available lisinopril 5 mg tablet TAKE 1 TABLET BY MOUTH DAILY 07/01 completed Not Available Not Available Not Available fluocinolon e 0.025 % topical ointment APPLY A THIN COAT TOPICALLY TO THE AFFECTED AREA 2 TIMES A WEEK AT BEDTIME DIRECTED active Not Available Not Available No t Available clobetasol 0.05 % topical ointment APPLY 1 APPLICATI ON EVERY DAY THIN COAT TO THE AREA AT BEDTIME FOR 2 WEEKS THEN EVERY OTHER DAY FOR 2 WEEKS THEN TWICE A WEEK 05/18 completed Not Available Not Available Not Available timolol maleate 0.5 % eye drops active Not Available Not Available Not Available oxycodone 5 mg tablet 07/01 completed Not Available Not Available Not Available Pneumovax-2 3 25 mcg/0.5 mL injection syringe ADM 0.5ML IM UTD 05/14 completed Not Available Not Available Not Available rosuvastati n 5 mg tablet Take 1 tablet every day by oral route for 90 days. active Not Available Not Available No t Available Aspir-81 qd 05/18 completed Not Available Not Available Not Available Prevnar 13 (PF) 0.5 mL intramuscul ar syringe 08/01 completed Not Available Not Available Not Available Fluarix Quad (PF) 60 mcg (15 mcg x 4)/0.5 mL IM syringe 01/08 completed Not Available Not Available Not Available Afluria Quad (PF) 60 mcg (15 mcg x 4)/0.5 mL IM syringe 10/22 completed Not Available Not Available Not Available Fluzone High-Dose (PF) 180 mcg/0.5 mL intramuscul ar syringe 08/01 completed Not Available Not Available Not Available Fluad Quad (6 5yr up)(PF) 60 mcg (15 mcg x 4)/0.5mL IM syringe ADM 0.5ML IM UTD 06/22 completed Not Available Not Available Not Available Vitals Date Recorded Body height Body mass index (BMI) Body weight Heart rate Oxygen saturation Oxygen saturation in Arterial blood by Pulse oximetry Systolic blood pressure Diastolic blood pressure Provider Name and Address Organization Details Last Updated DateTime 3 160.02 cm 37.9 kg/m2 61515.4 9 g 83 /min 95 % 95 % 126 mm[Hg] 72 mm[Hg] Miladis Goldberg [facility] 3 10:32:14 Date Recorded Body height Body mass index (BMI) Body weight Heart rate Oxygen saturation Oxygen saturation in Arterial blood by Pulse oximetry Systolic blood pressure Diastolic blood pressure Provider Name and Address Organization Details Last Updated DateTime 4 160.02 cm 37.1 kg/m2 74527.8 8 g 74 /min 97 % 97 % 138 mm[Hg] 84 mm[Hg] Lindsey Crain [facility] 4 09:03:20 Social History Question Answer Notes LastModified by Organizat ion Details LastModified Time Tobacco Smoking Status Former Smoker Joy rutherford [facility] 06/22/2020 16:12:17 Do You Or Have You Ever Used E-cigarettes Or Vape? Current User Of Electronic Cigarettes [email or web address] Information not available 07/14/2023 What Was The Date Of Your Most Recent Tobacco Screening? 05/18/2024 [email or web address] Information not available 05/18/2024 Sex: Unknown Functional Status None recorded. Mental Status None recorded. Family History Relationship Description Onset Age of this Age Resolved Age Notes LastModified by Organization Details LastModified Time Mother Chronic obstructive pulmonary disease 81 ellie Not available 2017 14:24:10 Father Alcohol abuse ellie Not available 2017 14:24:21 Brother Myocardial infarction ellie Not available 01/08 14:24:40 Medical History Condition Response Coronary Artery Disease N Other N Gout N Blood Diseases N Kidney Stones N Blood Transfusion N Breast Cancer N Depression N COPD N Lung Disease N Defects or Inherited Disease N Anxiety Disorder N Muscle, Joint, or Bone Problems N Obesity N Vision or Eye Problems N Arthritis N Polyps N Infertility N Mental Disorder N Cancer N Varicosities N Stroke N Endometriosis N Bladder or Kidney Problems N High Cholesterol N Liver Disease N Fibromyalgia N Headaches N Kidney Disease N Allergies/Hayfever N Heart Problems N Hospitalizations N Thyroid Problems N GI Problems N Skin Problems N Eating Disorder N Anemia N MRSA exposure N Constipation N Mental Illness N Ovarian Cancer N Diabetes N Seizures/Epilepsy N Tuberculosis N Congestive Heart Failure (CHF) N Eczema N Diverticulitis N Abuse/Domestic Violence N Asthma N Reflux/GERD N Hepatitis N Heart Disease N Pulmonary Embolism N Hypertension N Osteoporosis N Chicken Pox N Autism Spectrum Disorder (ASD) N Gynecological History Statement/Question Response Abnormal Pap N Age at Menarche 11 Age at First Child 20 Obstetrics History GPAL:G 0 P 0 0 0 0 Immunizations Vaccine Type Date Status Note Provider Nam e and Address Organization Details Recorded Time COVID-19, mRNA, LNP-S, PF, 30 mcg/0.3 mL dose 1 completed Joy rutherford [facility] 05/14/2021 09:24:38 COVID-19, mRNA, LNP-S, PF, 30 mcg/0.3 mL dose 1 completed Joy rutherford [facility] 05/14/2021 09:26:09 Influenza, split virus, quadrivalent, preservative 1 completed Javi Schmitz DO [address] [place] [address], [address], [facility] 06/03/2021 16:22:40 Tdap 1 completed Joy rutherford [facility] 08/07/2021 13:56:28 COVID-19, mRNA, LNP-S, PF, 30 mcg/0.3 mL dose 1 completed Javi Schmitz [address], [address], [facility] 09/20/2021 19:16:46 Influenza, split virus, quadrivalent, preservative 2 completed Javi Schmitz [address], [address], [facility] 06/07/2022 16:57:08 Pneumococcal conjugate PCV 13 9 completed Yamel Y[address], [address], [facility] 08/01/2019 09:38:40 Influenza, split virus, quadrivalent, preservative 9 completed Yamel Yosi [address], [address], [facility] 08/01/2019 09:38:53 Influenza, split virus, quadrivalent, preservative 0 completed [facility] 06/22/2020 08:11:10 pneumococcal polysaccharide PPV23 0 completed Javi Schmitz [address], [address], [facility] 07/21/2020 15:24:33 Influenza, split virus, quadrivalent, preservative 8 completed [facility] 06/05/2018 14:45:37 Past Encounters Encounter ID Performer Location Encounter Start Date Encounter Closed Date Diagnosis/Indication Diagnosis SNOMED-CT Code Diagnosis ICD10 Code [id number] Jerilyn Perkins NP, S [facility] [address] [place] [address] 01/08/2018 13:58:49 01/08/2018 16:46:03 Essential hypertension 47625174 I10 Hypercholesterolemia 136 02257 E78.00 Adult [facility] th examination 378928834 Z00.00 Nicotine dependence 5629 4008 F17.200 Obstructiv e sleep apnea syndrome 31349612 G47.33 [id number] Jerilyn Perkins NP, S [address] [address] 10/22/2018 13:47:36 10/22/2018 16:46:35 Gastric reflux 461101011 K21.9 Hyperlipidemia 81435728 E78.2 Essential hypertension 12933191 I10 Sleep apnea 50019596 G47 .30 Transient cerebral ischemia 607594586 G45.9 [id number] Jerilyn Perkins NP, [place] [address] [place] [address] 11/08/2018 13:26:33 11/08/2018 15:17:16 Hyperlipidemia 28732109 E78.2 Essential hypertension 36625136 I10 Sleep apnea 33441073 G47 .30 Body mass index 30+ - obesity 627190139 Z68.34 Gastric reflux 518803845 K21.9 Transient cerebral ischemia 640375011 G45.9 [id number] [address] [place] [address] 08/01/2019 09:22:11 08/01/2019 10:01:52 Hyperlipidemia 65936236 E78.2 Essential hypertension 81333446 I10 Sleep apnea 80343072 G47 .30 Body mass index 30+ - obesity 875196439 Z68.34 Gastric reflux 750267833 K21.9 Decreased estrogen level 737070366 E28.39 Screening procedure 2012 5006 Z13.9 Advance care planning 71 6941056 Z71.89 Multiple joint pain 3567 8005 M25.50 Vitamin D deficiency 347 85262 E55.9 Impaired f asting glycemia 227405177 R73.01 Urinary incontinence 165 164690 R32 [id number] MIRIAN TYLER [address] [place] [address] 06/22/2020 16:06:23 06/22/2020 16:36:12 Pain in right knee 5171222730 80933 M25.561 [id number] [place] [address] 10/29/2020 08:44:18 10/29/2020 15:09:48 Hyperlipidemia 30895856 E78.5 Essential hypertension 90111536 I10 [id number] ALEX JOVEL MIRIAN [address] [place] [address] 05/14/2021 09:17:27 05/14/2021 09:48:12 Essential hypertension 84155720 I10 Osteoarthritis 532477881 M15.0 [id number] ALXE JOVEL MIRIAN [address] [place] [address] 07/01/2021 14:46:49 07/01/2021 15:23:54 Gallstone acute pancreatitis 143280736 K85.10 [id number] ALEX HANEYMIRIAN WRAY [address] [address] 02/25/2022 14:08:41 02/25/2022 15:52:33 Acute bronchitis 67886550 J20.8 Cough 75940541 R05.1 [id number] ALEX JOV[address]MIRIAN [address] [place] [address] 06/03/2022 11:52:48 06/03/2022 14:37:17 Osteoarthritis of knee 660574052 M17.0 [id number] ALEX MEDINAMIRIAN WRAY [address] [address] 06/23/2022 09:27:45 06/23/2022 15:42:45 Transient cerebral ischemia 100655946 G45.8 [id number] ALEX MEDINAMIRIAN WRAY [address] [address] 07/14/2023 10:24:15 07/14/2023 14:03:28 Essential hypertension 57461257 I10 Hyperlipidemia 91210654 E78.2 Impaired f asting glycemia 784802093 R73.01 Screening for malignant neoplasm of cervix 306354576 Z12.4 Osteoarthr itis of knee 303101545 M17.0 Obstructiv e sleep apnea syndrome 47309427 G47.33 [id number] MIRIAN TYLER [facility] [place] [address] 05/18/2024 08:58:12 05/18/2024 09:18:29 Renewal of prescription 090990130 Z76.0 Depression screening 171 296979 Z13.31 Bilateral osteoarthritis of knees 4709274548 88460 M17.0 Essential hypertension 50442025 I10 Hyperlipidemia 44424757 E78.2 Impaired f asting glycemia 331826752 R73.01 Health Concerns Section Related Observation LastModified by Organization Detai ls LastModified Time None Recorded Concern Status LastModified by Organization Details LastModified Time None Recorded Advance Directives Directive None Recorded Payers Encounter Date Sequence Insurance Name Policy Number Policy Kathleen Covered Member ID Kathleen Member ID Guarantor Name 02/25/2022 1 [facility] (MEDICARE REPLACEMENT PPO) [id number] Marija Camacho [id number] Marija Camacho 06/03/2022 1 [facility]ICARE [place]PLACEMENT PPO) [id number] Marija Camacho [id number] Marija Camacho 06/23/2022 1 [place]AC[place] PPO) [id number] Marija Camacho [id number] Marija Camacho 07/14/2023 1 [place] PPO) [id number] Marija Camacho [id number] Marija Camacho 05/18/2024 1 [place] PPO) [id number] Marija Camacho [id number] Marija Camacho Notes Date Note Type Note Provider Name and Address Organization Details Recorded Time 2 text/html c/o cough x 2 days tele-med phone callpatient consents to phone call the patient reports that her symptoms started with what she originally was allergies, rhinorrhea, watery itching eyes, and coughthe patient reports she tested with at home rapid test and was negative it sounds like it drained to her chest, hx of smoking, more susceptible to lung infectionswill start on treatment for bronchitis MIRIAN TYLER [address] [facility],[address], [place], [address], [facility] 02/25/2022 14:57:15 2 text/html c/o left leg pain tele-med phone callpatient consents to phone call the patient reports she has a hx of OA, the patient reports that her knees were bothering herreports that the pain is moving down the anterior cali bone of her left leg is bothering herthe patient does report today she is feeling better after switching from flip flops to sneakershas OA in her right knee, will check her left kneestart on meloxicam MIRIAN TYLER [address] [facility],[place], [address], [facility] 06/03/2022 14:17:22 2 text/html ? TIA telemed phone callpatient consents to phone call patient has hx of TIAs, probable one on thursdaylasted only 30 seconds and was witnessed by her husbandright sided facial drop, slurred speech, right arm paralysis, aphasiahx of TIAs as above adjusted atorvastatin dose to 80 mgwould like to switch patient to eliquis but will hold off until patient has scan done to see if that's appropriateassuming ischemic event, but would like to rule out possible hemorrhage as well will fu with patient after imaging MIRIAN TYLER [address] [facility],[place], [address], [facility] 06/23/2022 14:58:42 3 text/html f/u medication check HTN: today in the office the patient BP is 126/72 L arm sittingthe patient is doing well on the BP medication with no side effects and no adjustment of their medications needed today [facility] ed on medicationdenies chest pain, sob, ankle swelling, orthopnea, palpitations needs bloodwork currently set up with marcos ibar[facility], has OA knees and hips MIRIAN TYLER [address] [facility], [place], [address], [facility] 07/14/2023 10:50:53 4 text/html medication f/u the patient is doing wellher recently had an [place] and ended up with a triple bypass the patient reports right shoulder painthe patient reports it is getting better, declines would like to see ortho for TKR consultsent to [facility] per patient request needs lab work for the yearmeds up to date MIRIAN TYLER [address] [place] [address],[place], [address], [facility] 05/18/2024 09:17:38 OBGyn Episode No OBEpisode recorded.
== END 2024-09-08 11:00 | disposition home or self-care (01) ==
PROVIDERS: PCP Internal Medicine; Visit Provider Advanced Practice Midwife
DX: Z01.419 Encounter for gynecological examination (general) (routine) without abnormal findings (principal)
CPT/HCPCS: 99397

== ENCOUNTER → 2024-09-08 10:04 | Outpatient (BNVA) | payer MEDICARE, SELFPAY | PROVIDERS: PCP Internal Medicine; Visit Provider Advanced Practice Midwife | DX: Z01.419 Encounter for gynecological examination (general) (routine) without abnormal findings (principal) | CPT/HCPCS: 99397; G0101 ==

== ENCOUNTER → 2025-01-10 11:00 | Outpatient (BNV) | payer MEDICARE, SELFPAY | PROVIDERS: PCP Internal Medicine; Visit Provider Internal Medicine | DX: Z12.31 Encounter for screening mammogram for malignant neoplasm of breast (principal) | CPT/HCPCS: 77063; 77067 ==

== ENCOUNTER 2025-01-10 11:03 | Outpatient (REF) | payer MEDICARE, SELFPAY ==
--- OUTSIDE RECORDS SUMMARY | 2025-01-10 13:35 | XMS_ITS | Data Portability ---
Author Organization [facility] Home Service Address [address] [place] [address] Assessment Encounter Date Assessment Date Assessment LastModified [...] Modified Time Details Appointments None recorded. Lab CMP, serum or plasma 2023 024 [facility], [address] [place] [address], [place], [address], 4 11:47:12 hemoglobin A1c, QN, blood 2023 024 [facility], [address] [place] [address], [address], 4 11:47:12 lipid panel, serum 2023 024 [facility], [address] [place] [address], [address], 4 11:47:12 CBC w/ auto diff 2023 024 [facility], [address] [place] [address], [address], 4 09:17:37 hemoglobin A1c, QN, blood 2022 023 [facility], [address] [place] [address], [address], 3 14:35:11 lipid panel, serum 2022 023 [facility], [address] [place] [address], [address], 3 10:39:53 CMP, serum or plasma 2022 023 [facility], [address] [place] [address], [address], 3 10:39:53 CBC w/ auto diff 2022 023 [facility], [address] [place] [address], [address], 3 10:39:53 Referral orthopedic surgeon referral 2023 024 bhavin Solis MD, [address], [place] [address], [place], [address], 4 13:41:[address] referral 2022 023 bhavin Reed MD, [address] [place] [address] [place], [address], 11:32:48 Procedures None recorded. Surgeries None recorded. Imaging MRI, brain, w/o contrast - Needs open MRI 2021 [email or web address] 10 [facility] [address], [place], [address], 08:20:59 XR, knee, 3 view 2021 [facility], [address] [place], [address], 11:40:43 Medication Orders atorvastat in 80 mg tablet 2021 [id number], [address], [place], [id number], 17:33:55 meloxicam 15 mg tablet 2021 [facility][id number], [address], [place], [id number], 14:12:32 Zithromax Z-Eron 250 mg tablet 2021 [facility][id number], [address], [place], [id number], 14:10:33 prednisone 5 mg/5 mL oral solution 2021 [facility] #[id number], [address], [place], [id number], 2 09:16:04 Patient TargetsNo targets recorded. Patient InstructionsNo instructions recorded. 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 [facility] (Medical Records) [address] [place], [address], 06/17/2022 14:48:28 07/17/20 22 07/16/2022 CT, head + brain , w/o contr ast No observ ation [facility] ed. [facility] [address] [facility] [place], [address], 07/18/2022 17:30:37 01/01/20 23 12/30/2022 MAMMO , littlee devin, digit al, bilat eral No observ ation record ed. [email or web address] [address] [place], [address], 12/31/2022 16:03:46 01/11/20 24 01/05/2024 MAMMO , littlee devin, digit al, bilat eral No observ ation record ed. [email or web address] [address] [place], [address], 01/12/2024 09:06:49 Result Notes None recorded. Problems Name Problem SNOMED Code Status Onset Date Resolution Date Notes Provider Name and Address Organization Details Recorded Time Urinary incontine nce 901122731 Active 2018 Not Available [facility] 12:56:37 Impaired fasting glycemia 948387727 Active 2018 Not Available [facility] 2 12:56:37 Multiple joint pain 23244657 Active 2018 [facility] Available [facility] 12:56:37 Decreased estrogen level 249584996 Active 2018 Not Available [facility] 12:56:37 Glaucoma 56785170 Active 2018 Not Available [facility] 2 12:56:37 Acute bronchiti s 62762333 Active 2021 Not Available [facility] 2 12:56:37 Cough 42005450 Active 2021 Not Available [facility] 2 12:56:37 Osteoarth ritis of knee 681676154 Active 2021 Not Available [facility] 2 12:56:37 Transient cerebral ischemia 140966761 Active 2021 MIRIAN TYLER [address] [place], [address], [facility] 2 14:47:48 Obstructi ve sleep apnea syndrome 95582406 Active 2022 MIRIAN TYLER [address] [place], [address], [facility] 3 10:48:00 Bilateral osteoarth ritis of knees 642837510786 107 Active 2022 MIRIAN TYLER [address] [place], [address], [facility] 3 11:00:17 Sleep apnea 49275217 Active 2017 Not Available [facility] 2 12:56:37 Essential hypertens ion 49141182 Active 2017 Not Available [facility] 2 12:56:37 Hyperlipi demia 94738974 Active 2017 Not Available [facility] 2 12:56:37 Osteoarth ritis 979168844 Active 2023 MIRIAN TYLER [address] [place], [address], [facility] 15:41:44 Gastric reflux 086135577 Active 2017 Not Available [facility] 12:56:37 Problem Notes None recorded. Procedures Surgical History Date Name Laterality Status Provider Name and Address Organization Details Recorded Time 021 Cholecystectomy completed MIRIAN TYLER [address] [facility], [place], [address], [facility] 07/01/2021 15:02:15 Imaging Results Imaging Date Name Status LastModified by Organiz ation Details LastModified Time 06/10/2022 XR, knee, 3 view completed [facility] (Medical Records) [address] [place] [address], [address], 06/17/2022 14:48:28 07/16/2022 CT, head + brain, w/o contrast completed [facility] (Medical Records) [address] [place] [address], [address], 07/18/2022 17:30:37 12/30/2022 MAMMO, screening, digital, bilateral completed [email or web address] [address] [place], [address], 12/31/2022 16:03:46 01/05/2024 MAMMO, screening, digital, bilateral completed [email or web address] [address] [place], [address], 01/12/2024 09:06:49 Procedure Notes None recorded. Medical [...] No t Available lisinopril 20 mg tablet Take 1 tablet every day by oral route. 2024 active Not Available Not Available Not Avai lable prednisone 5 mg/5 mL oral solution Take [...] Not Available rosuvastati n 5 mg tablet TAKE 1 TABLET DAILY 2024 active Not Available Not Available Not Avai lable Aspir-81 qd 05/18 completed Not Available Not [...] Updated DateTime 3 160.02 cm 37.9 kg/m2 75246.4 9 g 83 /min 95 % 95 % 126 mm[Hg] 72 mm[Hg] Miladis Goldberg [facility] 3 10:32:14 Date Recorded Body height Body mass index (BMI) Body weight Heart rate Oxygen saturation Oxygen saturation in Arterial blood by Pulse oximetry Systolic blood pressure Diastolic blood pressure Provider Name and Address Organization Details Last Updated DateTime 4 160.02 cm 37.1 kg/m2 24907.8 8 g 74 /min 97 % 97 % 138 mm[Hg] 84 mm[Hg] Lindsey Crain [facility] 4 09:03:20 Social History Question Answer Notes LastModified by Organizat ion Details LastModified Time Tobacco Smoking Status Former Smoker Joy rutherford [facility] 06/22/2020 16:12:17 Do You Or [...] Time Mother Chronic obstructive pulmonary disease 81 [email or web address] Not available 2017 14:24:10 Father Alcohol abuse ellie Not available 2017 14:24:21 Brother Myocardial infarction ellie Not available 01/08 14:24:40 Medical History Condition Response Coronary Artery Disease N Blood Diseases N Blood Transfusion N COPD N Depression N Anxiety Disorder N Obesity N Polyps N Infertility N Mental Disorder N Varicosities N Stroke N Fibromyalgia N Kidney Disease N Hospitalizations N Eating Disorder N Skin Problems N MRSA exposure N Constipation N Tuberculosis N Asthma N Pulmonary Embolism N Chicken Pox N Lung Disease N Defects or Inherited Disease N Endometriosis N Liver Disease N Thyroid Problems N GI Problems N Anemia N Diabetes N Congestive Heart Failure (CHF) N Abuse/Domestic Violence N Reflux/GERD N Heart Disease N Hypertension N Gout N Other N Kidney Stones N Muscle, Joint, or Bone Problems N Vision or Eye Problems N Arthritis N Cancer N Headaches N Heart Problems N Hepatitis N Autism Spectrum Disorder (ASD) N Breast Cancer N Bladder or Kidney Problems N High Cholesterol N Allergies/Hayfever N Mental Illness N Ovarian Cancer N Seizures/Epilepsy N Eczema N Diverticulitis N Osteoporosis N Gynecological History Statement/Question Response Abnormal Pap N Age at Menarche 11 Age at First Child 20 Obstetrics History GPAL:G 0 P 0 0 0 0 Immunizations Vaccine Type Date Status Note Provider Nam e and Address Organization Details Recorded Time COVID-19, mRNA, LNP-S, PF, 30 mcg/0.3 mL dose 01/16/20 21 completed Joy rutherford [facility] 05/14/2021 09:24:38 COVID-19, mRNA, LNP-S, PF, 30 mcg/0.3 mL dose 12/26/19 21 completed Joy rutherford [facility] 05/14/2021 09:26:09 Influenza, split virus, quadrivalent, preservative 06/02/20 21 completed Javi Schmitz, DO [address] [place] [address], [address], [facility] 06/03/2021 16:22:40 Tdap 08/06/20 21 completed [facility] rutherford [place] [facility] 08/07/2021 13:56:28 COVID-19, mRNA, LNP-S, PF, 30 mcg/0.3 mL dose 09/19/20 21 completed Javi Schmitz DO [address] [place] [address], [address], [facility] 09/20/2021 19:16:46 Influenza, split virus, quadrivalent, preservative 06/06/20 22 completed Javi Schmitz DO [address] [place] [address], [address], [facility] 06/07/2022 16:57:08 Pneumococcal conjugate PCV 13 07/17/20 19 completed Yamel Yosi [address], [address], [facility] 08/01/2019 09:38:40 Influenza, split virus, quadrivalent, preservative 07/17/20 19 completed Yamel Yosi [address], [address], [facility] 08/01/2019 09:38:53 Influenza, split virus, quadrivalent, preservative 06/20/20 20 [facility] 08:11:10 pneumococcal polysaccharide PPV23 07/20/20 20 completed Javi Schmitz DO [address] [place] [address], [address], [facility] 07/21/2020 15:24:33 Influenza, split virus, quadrivalent, preservative 06/04/20 18 [facility] 14:45:37 Past Encounters Encounter ID Performer Location Encounter Start Date Encounter Closed Date Diagnosis/Indication Diagnosis SNOMED-CT Code Diagnosis ICD10 Code Diagnosis Note [id number] Jerilyn Perkins NP, S [facility] [address] [place] [address],[place] [address] 01/08/2018 13:58:49 01/08/2018 16:46:03 Essential hypertension 89262410 I10 long discussion , need to work on exercise on a regular basis Hypercholesterolemia 136 63012 E78.00 continue diet high in vegetables , try to add in fruit Adult heal th examination 293615294 Z00.00 Nicotine dependence 5629 4008 F17.200 using e-cig, has been reducing amt nicotine, continue for 100% nicotine cessation Obstructiv e sleep apnea syndrome 32994298 G47.33 [id number] Jerilyn Perkins NP, [facility] [address] [facility],[place] [address] 10/22/2018 13:47:36 10/22/2018 16:46:35 Gastric reflux 375966430 K21.9 stable Hyperlipidemia 31128363 E78.2 Essential hypertension 06575248 I10 Sleep apnea 36381575 G47 .30 compliant Transient cerebral ischemia 755211386 G45.9 [place] [id number] Jerilyn Perkins NP, [facility] [address],[place] [address] 11/08/2018 13:26:33 11/08/2018 15:17:16 Hyperlipidemia 44487460 E78.2 Essential hypertension 71213668 I10 Sleep apnea 85228246 G47 .30 compliant Body mass index 30+ - obesity 448796217 Z68.34 long discussion diet/exerc ise Gastric reflux 055785639 K21.9 stable Transient cerebral ischemia 847716985 G45.9 Question of, (-) carotid US, awaiting echo and holter [id number] December Yosi [facility] [address],[place] [address] 08/01/2019 09:22:11 08/01/2019 10:01:52 Hyperlipidemia 33345718 E78.2 Essential hypertension 56263313 I10 Sleep apnea 45439330 G47 .30 compliant with cpap Body mass index 30+ - obesity 142761162 Z68.34 Gastric reflux 127471669 K21.9 quiet occ uses tums Decreased estrogen level 040417732 E28.39 Screening procedure 2012 5006 Z13.9 Advance care planning 71 1813220 Z71.89 HCP - demetria russo 2d - daughter - Jazz Rick Multiple joint pain 3567 8005 M25.50 Vitamin D deficiency 347 73254 E55.9 Impaired f asting glycemia 190675996 R73.01 Urinary incontinence 165 714011 R32 uses pads due to glaucoma oxybutynin /[place] [id number] MIRIAN TYLER [facility] [address] [facility] [address] [address] 06/22/2020 16:06:23 06/22/2020 16:36:12 Pain in right knee 2395704849 31840 M25.561 will start with XR to see if anything like bone spur, arthritis is present may need MRI depending will continue with APAP and ibu [id number] MIRIAN TYLER [facility] [address] [facility] [address] [address] 10/29/2020 08:44:18 10/29/2020 15:09:48 Hyperlipidemia 48803986 E78.5 will fu with BW at a later date as there is inclement weather this week will fu in 3 mo at which time patient can get bw then Essential hypertension 09258456 I10 will fu with BP at later date, patient is compliant with taking medication [id number] MIRIAN TYLER [facility] [address] [facility] [address] [address] 05/14/2021 09:17:27 05/14/2021 09:48:12 Essential hypertension 90234559 I10 BP is excellent Osteoarthritis 919151424 M15.0 will trial OTC, supplement first [id number] MIRIAN TYLER [facility] [address] [facility] [address] [address] 07/01/2021 14:46:49 07/01/2021 15:23:54 Gallstone acute pancreatitis 480281067 K85.10 stable [id number] MIRIAN TYLER [facility] [address] [facility] [address] [address] 02/25/2022 14:08:41 02/25/2022 15:52:33 Acute bronchitis 66195475 J20.8 will start on traditiona l treatment for z eron and prednisone Cough 11517035 R05.1 will fu with patient if no improvemen t [id number] MIRIAN TYLERhan [facility] [address] [facility] [address],[place] [address] 06/03/2022 11:52:48 06/03/2022 14:37:17 Osteoarthritis of knee 914130997 M17.0 will fu with XR and start on meloxicam [id number] MIRIAN TYLER [facility] [address] [facility] [address],[place] [address] 06/23/2022 09:27:45 06/23/2022 15:42:45 Transient cerebral ischemia 451615513 G45.8 will fu with MRIswitch to atorvastat in 80 mgcontinue on ASA 81 mg; may need to switch to eliquis [id number] MIRIAN TYLER [facility] [address] [facility] [address] [address] 07/14/2023 10:24:15 07/14/2023 14:03:28 Essential hypertension 37195179 I10 BP is excellent Hyperlipidemia 16569310 E78.2 needs new screening Impaired f asting glycemia 227760255 R73.01 needs new screening Screening for malignant neoplasm of cervix 813478318 Z12.4 needs new slasher tender Osteoarthr itis of knee 127131037 M17.0 working on diet and exerciseOA of hips and kneescause s diff with long distance Obstructiv e sleep apnea syndrome 09186757 G47.33 will set up with COPD [id number] MIRIAN TYLER [facility] [address] [facility] [address],[place] [address] 05/18/2024 08:58:12 05/18/2024 09:18:29 Renewal of prescription 898811407 Z76.0 stable Depression screening 171 409689 Z13.31 SCREENING NEGATIVE Bilateral osteoarthritis of knees 3244633261 24938 M17.0 will set up with [facility] to have eval for surgery Essential hypertension 75415241 I10 BP is excellent Hyperlipidemia 12735515 E78.2 needs new screening Impaired f asting glycemia 268612171 R73.01 needs new screening Health Concerns Section Related Observation LastModified by Organization Detai ls LastModified Time None Recorded Concern Status LastModified by Organization Details LastModified Time None Recorded Advance Directives Directive None Recorded Payers Encounter Date Sequence Insurance Name Policy Number Policy Kathleen Covered Member ID Kathleen Member ID Guarantor Name 02/25/2022 1 [facility] (MEDICARE REPLACEMENT PPO) [id number] Marija Trevon Russo [id number] Marija Russo 06/03/2022 1 [place]ICARE [place]AC[place] PPO) [id number] Marija Russo [id number] Marija Russo 06/23/2022 1 [place] PPO) [id number] Marija Russo [id number] Marija Russo 07/14/2023 1 [place] PPO) [id number] Marija Russo [id number] Marijaguy Russo 05/18/2024 1 [place] PPO) [id number] Marija Russo [id number] Amrija Russo Notes Date Note Type Note Provider Name [...] start on treatment for bronchitis MIRIAN TYLER [address] [place] [address], [address], [facility] 02/25/2022 14:57:15 2 text/html c/o [...] her left kneestart on meloxicam MIRIAN TYLER [address] [place], [address], [facility] 06/03/2022 14:17:22 2 text/html ? [...] fu with patient after imaging MIRIAN TYLER [address] [place], [address], [facility] 06/23/2022 14:58:42 3 text/html f/u medication check HTN: today in the office the patient BP is 126/72 L arm sittingthe patient is doing well on the BP medication with no side effects and no adjustment of their medications needed today at the appointmentwell-control led on medicationdenies chest pain, sob, ankle swelling, orthopnea, palpitations needs bloodwork currently set up with [facility] donelljohn as wellpermeant, has OA knees and hips MIRIAN TYLER [address] [place], [address], [facility] 07/14/2023 10:50:53 4 text/html medication f/u the patient is doing wellher recently had an MD and ended up with a triple bypass the patient reports right shoulder painthe patient reports it is getting better, declines would like to see ortho for TKR consultsent to [facility] per patient request needs lab work for the yearmeds up to date MIRIAN TYLER [address] [place], [address], [facility] 05/18/2024 09:17:38 OBGyn Episode No OBEpisode recorded.
== END 2025-01-10 11:04 | disposition home or self-care (01) ==
LOC: HO.MAMMO 11:03
PROVIDERS: PCP Internal Medicine; Visit Provider Internal Medicine
DX: Z12.31 Encounter for screening mammogram for malignant neoplasm of breast (principal)
CPT/HCPCS: 77063; 77067

== ENCOUNTER 2025-03-15 18:23 | Inpatient (IN) | payer MEDICARE, SELFPAY ==
--- NOTE | ~2025-03-15 | CT_ITS ---
CLINICAL HISTORY: intermittend loss of strenth R arm CT Head without contrast. CT angiography head and neck with contrast. 3D Postprocessing. Comparison: None provided Findings: HEAD CT: There is age-appropriate atrophy. The size and shape of the ventricular system is within normal limits for this degree of atrophy. Veke-cu-mrzgiqvz areas of low-attenuation are seen within the deep white matter. 8 mm lacunar infarct within the left basal ganglia. No midline shift or mass effect. No intracranial hemorrhage. No calvarial fractures. HEAD AND NECK CTA: Mild vascular calcification of the aortic arch without dissection or aneurysmal dilatation. Conventional great vessel anatomy. Ixhs-ya-yezapuvu vascular calcification of the origin of the great vessels. Dominant left vertebral artery. Left vertebral artery is patent throughout its course. No dissection occlusion seen. Right vertebral artery is patent throughout its course as well. No occlusive phenomenon or flow-limiting stenosis. Vascular calcification of the carotid bifurcations bilaterally, bquq-nphxibv-jshh-right. Appropriate contrast throughout the internal carotid arteries extending into the cavernous carotid arteries. Middle cerebral arteries and anterior cerebral arteries are patent with appropriate contrast. No aneurysms. Miscellaneous findings: No infiltrates within the lungs. No enlarged lymph nodes. Upper airway is patent. No acute bony lesions. IMPRESSION: CT head: Age-appropriate changes without acute fracture or intracranial hemorrhage. CT angiogram neck: No acute findings. CT angiogram head: No acute findings. This document has been electronically signed by: Zoltan Chandler MD on 03/16/2025 01:15:23
--- NOTE | ~2025-03-15 | MR_ITS ---
EXAMINATION: MR BRAIN WITHOUT CONTRAST CLINICAL INFORMATION: Right arm numbness and tingling. 69-year-old female. COMPARISON: No prior MRI. CT head 03/15/2025. TECHNIQUE: MRI of the brain was obtained using routine sequences without contrast. Examination performed on a 1.5 Jessica Siemens high-field unit. FINDINGS: There is no diffusion restriction. There is no intracranial hemorrhage, acute infarction, mass effect, or edema. Ventricles, sulci, and cisterns are somewhat diffusely prominent, in keeping with age advanced cerebral and cerebellar involutional changes. No shift of midline. There is abnormal hemosiderin deposition in the left posterior temporal and occipital lobe, likely from old hemorrhage. There is a prominent perivascular space in the left subinsular region. There are a numerous scattered punctate and mildly confluent foci of white matter T2 hyperintensity in the periventricular, subcortical, and hemispheric deep white matter. These foci are nonspecific but statistically most likely represent sequela of small vessel ischemia. No distribution or morphology specific to inflammatory demyelinating disease. Midline structures appear normally formed. There is thinning of the corpus callosum. The pituitary gland appears normal. Posterior fossa structures appear normal. Cerebellar tonsils are appropriately located. Major flow voids are preserved within the skull base. The globes and orbital contents demonstrate no abnormalities. Paranasal sinuses are clear bilaterally. Nasal septum is midline without spur. The mastoids and tympanic cavities are normally aerated. Extracranial soft tissues demonstrate no abnormalities. No suspicious bone marrow changes are evident. Atlantoaxial joint demonstrates mild degenerative changes. MR/MR head/brain wo con IMPRESSION: 1. No evidence of intracranial hemorrhage, acute infarction, mass effect, or edema. 2. Age advanced cerebral and cerebellar involutional changes. 3. Mild to moderate changes of small vessel ischemia. 4. Additional ancillary findings as discussed. Electronically signed by: Marin Han MD 03/16/2025 01:41 PM EDT
[2025-03-15 18:53] VITALS: BP 146/77; PULSE 70; RESP 20; TEMP 36.6; O2SAT 95; BMI 35.8
--- NOTE | 2025-03-15 18:55 | ED_ITS ---
HPI - General Adult General Chief complaint: Extremity Problem Stated complaint: R arm numbness Time Seen by Provider: 03/15/25 23:07 Source: patient and family Mode of arrival: ambulatory Limitations: no limitations History of Present Illness ED Provider: Dr. Lorraine Holt HPI narrative: Patient comes to the emergency room complaining of intermittent loss of strength of the right upper extremity. According to the patient, around 17:00 when the patient and her were eating dinner, patient had a sudden onset of inability to move the right arm at all. Patient denies numbness tingling, she has had no strength at all. Patient states it lasted for about 5-10 minutes and then it herself resolved. For the next 5 hours, patient had intermittent similar episodes of loss of function and occasional numbness tingling. At this time, patient states that she is asymptomatic, has no numbness tingling in her arm strength is normal Related Data Home Medications ?Medication ?Instructions ?Recorded ?Confirmed latanoprost 0.005 % eye drops 1 drp ophthalmic (eye) B EDTIME 06/22/21 06/22/21 aspirin 81 mg tablet,delayed 81 mg PO DAILY 09/04/23 release meloxicam 15 mg tablet 15 mg PO DAILY 09/04/23 rosuvastatin 5 mg tablet 5 mg PO DAILY 05/13/24 Previous Rx's ?Medication ?Instructions ?Recorded lisinopril 10 mg tablet 10 mg PO DAILY #30 tabs 05/31 fluocinolone 0.025 % topical 1 appl topical .Twice a w inaja 3 09/08/24 ointment (Synalar) months #60 grams Allergies Allergy/AdvReac Type Severity Reaction Status Date / Time No Known Allergies (No Known Allergy Verified 03/15/25 18:55 Allergies*) Review of Systems 2 Review of Systems: Constitutional : No Weight loss, No Fever, No Chills, No Night Sweats, No Fatigue, No Malaise ENT/Mouth : No Hearing loss, No Ear Pain, No Nasal Congestion, No Sinus Pain, No Hoarseness, No sore throat, No Rhinorrhea, No Swallowing Difficulty Eyes: No Eye Pain, No Swelling, No Redness, No Foreign Body, No Discharge, No Vision Changes Cardiovascular : No Chest Pain, No SOB, No Dyspnea on Exertion, No Orthopnea, No Edema, No Palpitations Respiratory : No Cough, No Sputum, No Wheezing, No Smoke Exposure, No Dyspnea Gastrointestinal : No Nausea, No Vomiting, No Diarrhea, No Constipation, No abdominal Pain, No Hematochezia, No Melena Genitourinary : no irregular bleeding, No Dysuria, No Urinary Frequency, No Hematuria, No Urinary Incontinence, No Urgency, No Flank Pain, No Urinary Flow Changes, No Hesitancy Musculoskeletal : No joint pain, No Myalgias, No Joint Swelling Skin : No Skin Lesions, No rash Neuro : Complaining of intermittent loss of strength of the right arm and intermittent numbness and tingling, No Numbness, no loss of consciousness, no dizziness or headache, Psych : No Anxiety/Panic, No Depression, No SI/HI/AH/VH, No Social Issues, Heme/Lymph: No Bruising, No Bleeding,No Lymphadenopathy Endocrine : No Polyuria, No Polydipsia, No Temperature Intolerance [facility] Past Medical History Medical History Lichen sclerosus HLD (hyperlipidemia) HTN (hypertension) No known health problems Surgical History Hx of cholecystectomy Family History Family History Brother CAD (coronary artery disease) Mother CAD (coronary artery disease) Social History Social History Household Members: Spouse Housing: House Do you presently have visiting nurse or other home services: No Alcohol intake: current Alcohol intake frequency: holidays/special occasions only Patient Tobacco Use Status: Former Tobacco user Tobacco use type: Smokeless Tobacco e-Cigarette/Vaping Use: Currently Using Second Hand Smoke Exposure: No Advance Directives: Yes Advance Directives Information Provided: Yes Advance Directives on File: No Advance Directives Date on File: 06/23/21 service: No Sexual orientation: Straight/Heterosexual Gender identity: Female Physical Exam ED Vital Signs: Vital Signs - 24 hr 03/15/25 18:53 03/15/25 22:52 03/16/25 01:38 Temperature 98 F 98.4 F 97.9 F Pulse Rate 70 73 72 Respiratory Rate 20 16 16 Blood Pressure 146/77 H 208/90 H 193/83 H Pulse Oximetry 95 96 95 Oxygen Delivery Method Room Air Room Air Room Air 03/16/25 02:30 Temperature Pulse Rate 76 Respiratory Rate Blood Pressure 182/55 H Pulse Oximetry Oxygen Delivery Method BMI result Body Mass Index 35.8 Const Other: Appearance: Alert. Oriented X3. No acute distress. Eyes: Pupils equal, round and reactive to light. ENT: Pharynx normal. Neck: Normal inspection. Neck supple. No lymph nodes noted. No crepitus CVS: Normal heart rate and rhythm. Pulses normal. Normal S1 and S2 Respiratory: No respiratory distress. Breath sounds normal. No Wheezing. No rales Abdomen: Soft and nontender. No rigidity. No distention. Skin: Skin warm and dry. Normal skin color. Normal skin turgor. Extremities: No lower extremity edema. No Lacerations. No Rash, walks with a cane Neuro: Oriented X 3. No motor deficit. No sensory deficit. Moving all extremities. No slurred speech. CN 2 through 12 grossly intact, strength 5/5 in both upper and lower extremities bilaterally. No mouth drooping. NIH score 0 Psych: calm, cooperative, normal affect NIH Stroke Scale Internal: Initial- Upon Arrival Level of Consciousness: Alert Level of Consciousness Questions: Answers both questions correctly Level of Consciousness Commands: Performs both tasks correctly Best Gaze: Normal Visual: No visual loss Facial Palsy: Normal Motor Arm (Right): No drift Motor Arm (Left): No drift Motor Leg (Right): No drift Motor Leg (Left): No drift Limb Ataxia: Absent Sensory: Normal Best Language: No aphasia Dysarthia: Normal Extinction and Inattention: No abnormality Score: 0 Course Course Course Narrative: RME, this is a rapid medical exam performed by Manish Calderon please refer to primary provider for complete H&P- 69-year-old female presents for evaluation of right arm numbness. She had no headache, no difficulty with speech, no dizziness, no facial droop. Her symptoms started about an hour and a half ago. She has some right shoulder pain. History and exam is most consistent with neuropathy. Plan for cardiac workup. NIH stroke score is 0 Medications Administered Discontinued Medications Generic Name Dose Route Start Last Admin Trade Name Freq PRN Reason Stop Dose Admin Aspirin 325 mg 03/15/25 23:18 03/16/25 00:06 Aspirin Enteric Coated 325 Mg Tablet.Dr TEJEDA 03/15/25 23:19 325 mg ONCE ONE Administration Iohexol 75 ml 03/15/25 23:57 03/15/25 23:58 Iohexol 350 Mg/Ml 100 Ml Infus..Btl IV 03/15/25 23:58 75 ml ONCE ONE Administration Labetalol HCl 100 mg 03/16/25 02:15 03/16/25 02:30 Labetalol Hcl 100 Mg Tablet PO 03/16/25 02:16 100 mg ONCE ONE Administration Protocol Lisinopril 40 mg 03/15/25 22:52 03/15/25 23:01 Lisinopril 40 Mg Tablet PO 03/15/25 22:53 40 mg ONCE ONE Administration Protocol Medical Decision Making Medical Decision Making MDM Narrative: My interpretation of labs: No significant abnormality in patient's hematology or chemistry my normal LFTs, troponin negative. Patient's symptoms are concerning for a TIA. Patient states that in the past she had a TIA I discussed with the patient and her has been the plan, we will get a CT scan angio of the head and neck. Then, I recommend admission. CTA does not show any acute abnormalities I discussed the patient with Dr. ho Differential Diagnosis Differential Diagnoses: The differential diagnosis associated with the presentation includes ( TIA, CVA, migraine ) Admission/Observation Consideration of admission/observation: Escalation of care including admission/observation considered Consult Healthcare Provider Management of the patient was discussed with: Hospitalist Lab Data [facility] Lab Attestation statement: I reviewed the patient's lab results. 03/15/25 19:26 03/15/25 19:26 Labs: Lab Results 03/15/25 Range/Units 19:26 WBC 7.4 (4.8-10.8) X10*3/uL RBC 4.24 (4.20-5.50) X10*6/uL Hgb 12.8 (12.0-16.0) g/dl Hct 37.9 (37.0-47.0) % MCV 89.4 (80.0-98.0) fL MCH 30.2 (27.0-33.0) pg MCHC 33.8 (31.0-35.0) g/dl RDW 13.3 (11.0-16.0) % Plt Count 164 (160-400) X10*3/uL MPV 9.3 L (9.4-12.3) fL Immature Gran % (Auto) 0.3 (0.0-0.4) % Neut % (Auto) 69.5 (45-73) % Lymph % (Auto) 21.5 (20-40) % [place] % (Auto) 6.3 (2-11) % Eos % (Auto) 1.9 (0-4) % Baso % (Auto) 0.5 (0-2) % Lymph # (Auto) 1.6 (1.2-4.9) X10*3/uL [place] # (Auto) 0.5 (0.1-1.2) X10*3/uL Eos # (Auto) 0.1 (0.0-0.4) X10*3/uL Baso # (Auto) 0.0 (0.0-0.2) X10*3/uL Abs Immat Gran (auto) 0.02 (0.00-0.03) X10*3/uL Absolute Neuts (auto) 5.2 (2.0-8.3) x10*3/uL Absolute Nucleated RBC 0.000 (0.0-0.012) X10*3/uL Nucleated RBC % (auto) 0.0 (0.0-0.2) /100WBC Sodium 142 (135-145) mmol/L Potassium 4.1 (3.3-5.1) mmol/L Chloride 111 H (96-108) mmol/L Carbon Dioxide 23 (22-29) mmol/L Anion Gap 12 (12-20) BUN 26 H (9-16) mg/dL Creatinine 0.84 (0.5-1.4) mg/dL Estim Creat Clear Calc 66.0 Estimated GFR > 60 Random Glucose 125 H (60-115) mg/dL Calcium 9.4 (8.4-10.2) mg/dL Magnesium 2.0 (1.6-2.6) mg/dL Total Bilirubin 0.2 (0.0-1.0) mg/dL AST 25 (5-31) U/L ALT 19 (0-31) U/L Alkaline Phosphatase 76 (39-117) U/L Troponin I High Sens < 2.7 (<3.5-17.0) ng/L Total Protein 6.9 (6.5-8.0) g/dL Albumin 4.5 (3.5-5.0) g/dL Lipase 23 (8-78) U/L Independent Interpretation I performed an independent interpretation of an: CT Scan Radiology Impression Discussion of test interpretation with radiology: I have reviewed the radiologist's reading. Radiologist Impression: HEAD CT: There is age-appropriate atrophy. The size and shape of the ventricular system is within normal limits for this degree of atrophy. Qxxh-ho-xbvasfvg areas of low-attenuation are seen within the deep white matter. 8 mm lacunar infarct within the left basal ganglia. No midline shift or mass effect. No intracranial hemorrhage. No calvarial fractures. HEAD AND NECK CTA: Mild vascular calcification of the aortic arch without dissection or aneurysmal dilatation. Conventional great vessel anatomy. Obyf-bn-wyptclqo vascular calcification of the origin of the great vessels. Dominant left vertebral artery. Left vertebral artery is patent throughout its course. No dissection occlusion seen. Right vertebral artery is patent throughout its course as well. No occlusive phenomenon or flow-limiting stenosis. Vascular calcification of the carotid bifurcations bilaterally, [id number]-nlhn-right. Appropriate contrast throughout the internal carotid arteries extending into the cavernous carotid arteries. Middle cerebral arteries and anterior cerebral arteries are patent with appropriate contrast. No aneurysms. Miscellaneous findings: No infiltrates within the lungs. No enlarged lymph nodes. Upper airway is patent. No acute bony lesions. IMPRESSION: CT head: Age-appropriate changes without acute fracture or intracranial hemorrhage. CT angiogram neck: No acute findings. CT angiogram head: No acute findings. Critical Care Time Critical Care Time Critical Care Time: Yes Total Critical Care Time: 60 Attestation: I have personally provided critical care time. Time includes review of lab data, radiology results, discussion with consultants, and monitoring for potential decompensation. Intervention performed as documented. Discharge Plan Discharge Clinical Impression: Brain TIA Patient Disposition: Admitted As Inpatient Print Language: Indonesian
--- NOTE | 2025-03-15 18:57 | ECG_ITS ---
Test Reason : PAIN Blood Pressure : */* mmHG Vent. Rate : 66 BPM Atrial Rate : 66 BPM P-R Int : 164 ms QRS Dur : 72 ms QT Int : 390 ms P-R-T Axes : 59 -10 23 degrees QTcB Int : 408 ms Normal sinus rhythm Low voltage QRS Borderline ECG When compared with ECG of 22-Jun-2021 11:34, No significant change was found Referred By: Thomas Calderon Electronically Signed By: Damian Hendricks
[2025-03-15 19:30] LABS: MANUAL DIFF FLAG NO
[2025-03-15 19:35] LABS: Basophils Percent Auto 0.5 % (0-2); Eosinophils Absolute Auto 0.1 X10*3/uL (0.0-0.4); Eosinophils Percent Auto 1.9 % (0-4); Hematocrit 37.9 % (37.0-47.0); Hemoglobin 12.8 g/dl (12.0-16.0); Imm Gran Abs Auto 0.02 X10*3/uL (0.00-0.03); Imm Gran Pct Auto 0.3 % (0.0-0.4); Lymphocytes Absolute Auto 1.6 X10*3/uL (1.2-4.9); Lymphocytes Percent Auto 21.5 % (20-40); Mean Corpuscular HGB Conc 33.8 g/dl (31.0-35.0); Mean Corpuscular Hemoglobin 30.2 pg (27.0-33.0); Mean Corpuscular Volume 89.4 fL (80.0-98.0); Mean Platelet Volume 9.3 fL (9.4-12.3); Monocytes Absolute Auto 0.5 X10*3/uL (0.1-1.2); Monocytes Percent Auto 6.3 % (2-11); Neutrophils Absolute Auto 5.2 x10*3/uL (2.0-8.3); Neutrophils Percent Auto 69.5 % (45-73); Platelet Count 164 X10*3/uL (160-400); Red Blood Count 4.24 X10*6/uL (4.20-5.50); Red Cell Distribution Width 13.3 % (11.0-16.0); White Blood Count 7.4 X10*3/uL (4.8-10.8)
[2025-03-15 19:47] LABS: Alanine Aminotransferase 19 U/L (0-31); Albumin Level 4.5 g/dL (3.5-5.0); Alkaline Phosphatase 76 U/L (39-117); Anion Gap 12 (12-20); Aspartate Amino Transferase 25 U/L (5-31); Bilirubin Total 0.2 mg/dL (0.0-1.0); Blood Urea Nitrogen 26 mg/dL (9-16); Calcium 9.4 mg/dL (8.4-10.2); Carbon Dioxide 23 mmol/L (22-29); Chloride 111 mmol/L (96-108); Estimated Glomerular Filt Rate > 60; Glucose Random 125 mg/dL (60-115); Lipase 23 U/L (8-78); Potassium 4.1 mmol/L (3.3-5.1); Sodium 142 mmol/L (135-145); Total Protein 6.9 g/dL (6.5-8.0)
[2025-03-15 19:56] LABS: Troponin-I High Sensitivity < 2.7 ng/L (<3.5-17.0)
[2025-03-15 22:52] VITALS: BP 208/90; PULSE 73; RESP 16; TEMP 36.9; O2SAT 96
--- NOTE | 2025-03-15 22:53 | PC.NURSE ---
pt is axox4 ambulatory with steady gait with cane reports sx resolved. denies cp/sob. no sx today of slurred speech/focal deficits/confusion, etc. confirms pt did not have any sx as well. MD Holt made aware of BP. pt states takes 10mg lisinopril took in AM. verbal order from Dr. Holt for Lisinopril 40mg PO.
[2025-03-15] MEDS: lisinopriL 40 MG TABLET PO (23:01)
[2025-03-15] MEDS: iohexoL 350 MG/ML 100 ML INFUS..BTL 75 ML IV (23:58)
[2025-03-16] MEDS: Aspirin Enteric Coated 325 MG TABLET.DR PO (00:06)
[2025-03-16 01:38] VITALS: BP 193/83; PULSE 72; RESP 16; TEMP 36.6; O2SAT 95
[2025-03-16 02:30] VITALS: BP 182/55; PULSE 76
[2025-03-16] MEDS: Labetalol HCL 100 MG TABLET PO (02:30)
--- NOTE | 2025-03-16 03:47 | P.HPHOSP_ITS ---
History of Present Illness Date of Service: 03/16/25 Attending physician on admission: Holley Sherman Chief Complaint: Right arm numbness Kerry Camacho is a 69 years old woman with past medical history significant for TIAs, hyperlipidemia and hypertension presents to the emergency department complaining of right arm numbness that started yesterday at 5:30 PM. She denied numbness or weakness to the lower extremities. She denied headache, face numbness or tingling, palpitations, dizziness, speech difficulty or loss of consciousness. She also denied chest pain, shortness of breath, chest pain, fever or chills. She denied any acute gastrointestinal or genitourinary symptoms. Patient stated that over symptoms normalized. She reported chronic pain to the right arm and shoulder. She denied tobacco smoking, alcohol abuse or illicit drug use. She vapes. She uses a cane for ambulation. In the ED, she was found to have stable vital signs. Blood pressure was found to be elevated (max 208/90). Last BP is 182/55. CBC and CMP are essentially unremarkable. Head and neck CTA showed no acute findings. ECG showed normal sinus rhythm and low voltages without ischemic changes. ED tx: Lisinopril 40 mg p.o., aspirin 325 mg p.o., labetalol 100 mg. Review of Systems 2 Review of Systems: All 12 systems were reviewed and normal except as noted in HPI. [facility] Medical History (Updated 03/16/25 @ 06:22 by Holley Sherman MD) Lichen sclerosus HLD (hyperlipidemia) HTN (hypertension) No known health problems Family History Brother CAD (coronary artery disease) Mother CAD (coronary artery disease) Surgical History Hx of cholecystectomy Social History Household Members: Spouse Housing: House Do you presently have visiting nurse or other home services: No Alcohol intake: current Alcohol intake frequency: does not drink Patient Tobacco Use Status: Former Tobacco user Tobacco use type: Smokeless Tobacco Smoked in Last 30 Days: No e-Cigarette/Vaping Use: Currently Using Second Hand Smoke Exposure: No Use of substances other than those prescribed or required for medical reasons: No Advance Directives: No Advance Directives Information Provided: No Advance Directives on File: No Advance Directives Date on File: 06/23/21 Recently lost weight without trying: No Patient : No service: No Sexual orientation: Straight/Heterosexual Gender identity: Female Meds Allergies Allergy/AdvReac Type Severity Reaction Status Date / Time No Known Allergies (No Known Allergy Verified 03/15/25 18:55 Allergies*) Active Medications: Current Medications Acetaminophen (Acetaminophen 325 Mg Tablet) 975 mg PO Q6H PRN PRN Reason: Pain, Mild 1-3,fever,headache Aspirin (Aspirin Enteric Coated 81 Mg Tablet.Dr) 81 mg PO DAILY PREMA Home Medications ?Medication ?Instructions ?Recorded ?Confirmed ?Last Taken ?Type latanoprost 0.005 % eye drops 1 drp ophthalmic (eye) B EDTIME 06/22/21 06/22/21 Unknown History aspirin 81 mg tablet,delayed 81 mg PO DAILY 09/04/23 Unknown History release meloxicam 15 mg tablet 15 mg PO DAILY 09/04/23 Unk nown History rosuvastatin 5 mg tablet 5 mg PO DAILY 05/13/24 Unkn own History Physical Exam 2 Vital Signs and Narrative: Vital Signs: Last Vital Signs Temp 97.9 F 03/16/25 01:38 Pulse 76 03/16/25 02:30 Resp 16 03/16/25 01:38 BP 182/55 H 03/16/25 02:30 Pulse Ox 95 03/16/25 01:38 O2 Del Method Room Air 03/16/25 01:38 BMI result Body Mass Index 35.8 Constitutional - Awake and Alert, No apparent distress HEENT - PERRL, EOMI Heart - S1S2, RRR, No murmurs Lungs - Normal lung expansion, Normal respiratory effort, No respiratory distress, CTA bilaterally Abdomen - NT / ND; +BS; No rebound or guarding Extremities - no calf tenderness bilaterally, no swelling Musculoskeletal - Normal inspection, normal ROM Skin - Warm/Dry Neurological - Alert & oriented x3, CN III-XII intact, 5/5 strength BUE and BLE. Normal speech. Psychological - Appropriate affect Results Labs 03/15/25 19:26 03/15/25 19:26 Labs: Laboratory Results - last 24 hr 03/15/25 19:26 MCV 89.4 MCH 30.2 MCHC 33.8 RDW 13.3 Plt Count 164 MPV 9.3 L Immature Gran % (Auto) 0.3 Neut % (Auto) 69.5 Lymph % (Auto) 21.5 [place] % (Auto) 6.3 Eos % (Auto) 1.9 Baso % (Auto) 0.5 Lymph # (Auto) 1.6 [place] # (Auto) 0.5 Eos # (Auto) 0.1 Baso # (Auto) 0.0 Abs Immat Gran (auto) 0.02 Absolute Neuts (auto) 5.2 Absolute Nucleated RBC 0.000 Nucleated RBC % (auto) 0.0 Anion Gap 12 Estim Creat Clear Calc 66.0 Estimated GFR > 60 Random Glucose 125 H Calcium 9.4 Magnesium 2.0 Total Bilirubin 0.2 AST 25 ALT 19 Alkaline Phosphatase 76 Troponin I High Sens < 2.7 Total Protein 6.9 Albumin 4.5 Lipase 23 Assessment and Plan (1) Brain TIA: Status: Acute (2) HTN (hypertension): Qualifiers: Hypertension type: primary hypertension Qualified Code(s): I10 - Essential (primary) hypertension Status: Acute (3) HLD (hyperlipidemia): Qualifiers: Hyperlipidemia type: unspecified Qualified Code(s): E78.5 - Hyperlipidemia, unspecified Status: Acute Plan Kerry Camacho is a 69 years old woman admitted with: * Right arm numbness likely secondary to TIA, resolved. Admit to hospitalist service. Telemetry monitoring for atrial fibrillation. Neuro checks. Continue aspirin 81 mg p.o. daily. Continue statin. Check TTE and brain MRI. Check lipid panel and Hgb A1c. Neurology consult. TIA education. * Hypertensive urgency, improving. Receive lisinopril 40 mg p.o. a labetalol 100 mg in the ED. Continue lisinopril 20 mg PO daily and labetalol 100 mg p.o. BID. Low-salt diet. * Hyperlipidemia. Optimize statin therapy. * Glaucoma. Continue timolol and latanoprost. DVT prophylaxis: Lovenox Code status: Full Patient will need hospitalization for at least 2 midnights for TIA and hypertensive urgency treatment with close monitoring of vital signs and neurological status; will need further evaluation with TTE, brain MRI and evaluation by subspecialty. Quality Stroke Does the patient have a stroke diagnosis?: No VTE Prior VTE?: No VTE Risk Level:: Medical - moderate - high VTE Device Contraindication: Treatment Not Indicated VTE Drug Contraindication: N/A - Med Ordered
[2025-03-16] MEDS: Acetaminophen 325 MG TABLET 975 MG PO (04:15)
[2025-03-16 04:32] VITALS: BMI 36.7
[2025-03-16 04:41] VITALS: BP 144/63; PULSE 74; RESP 18; TEMP 36.6; O2SAT 95
--- NOTE | 2025-03-16 07:00 | CA_ITS ---
Transthoracic Echocardiogram Patient (Last, First, Middle): Marija Camacho, Gender: Female Date of : 1955 Age: 69 Procedure Date: 03/16/2025 Procedure Type: Transthoracic Echocardiogram Location: [facility] Height: 160.02 cm Weight: 93.9 kg BSA: 1.96 m2 Heart Rate: bpm BP: 144 / 63 mmHg Tree Doctor: TO Referring MD: Holley Sherman MD Symptoms: TIA Study Quality: Fair/Contrast Conclusions: - Normal left ventricular cavity size. The left ventricular systolic function is hyperdynamic. The visually estimated ejection fraction is >70%. - Normal right ventricular cavity size and systolic function. Findings Procedure Information Contrast agent, definity, is being given per protocol without apparent complications. Left Ventricle Normal left ventricular cavity size. The left ventricular systolic function is hyperdynamic. The visually estimated ejection fraction is >70%. There is no evidence of regional wall motion abnormalities. Diastolic function is normal for age. There is moderate septal asymmetric hypertrophy. Right Ventricle Normal right ventricular cavity size and systolic function. Atria The left atrium is normal in size. The right atrium is normal in size. Aortic Valve Normal aortic valve structure and function. There is no aortic valve stenosis. There is no aortic valve regurgitation. Mitral Valve The mitral valve appears normal. There is no mitral valve regurgitation. There is no mitral valve stenosis. Pulmonic Valve The pulmonic valve is normal. There is no pulmonic valve regurgitation. Tricuspid Valve Normal tricuspid valve structure. There is no tricuspid valve regurgitation. Normal right atrial pressure. There is no evidence of pulmonary hypertension. Great Vessels All visible segments of the aorta are normal in size. Venous The inferior vena cava is normal in size and collapses greater than 50% with inspiration. Pericardium/Pleural There is no evidence of pericardial effusion. Prior Study Comparison No significant change compared to prior study dated: 11/04/2018. Measurements 2D Linear Measurements IVSd: 1.25 0.6-0.9/0.6-1.0 cm LVIDd: 3.94 3.9-5.3/4.2-5.9 cm LVIDd Index: 2.01 2.4-3.2/2.2-3.1 cm/m2 LVIDs: 2.53 2.0-3.6 cm LVPWd: 0.77 0.7-1.1 cm LA Diam: 2.90 2.7-3.8/3.0-4.0 cm LAIDs Index: 1.48 1.5-2.3 cm/m2 LV Mass: 156.68 67-162/88-224 g LV Mass Index: 79.94 43-95/49-115 g/m2 LVOT Diam: 2.10 3.0+(-)1.3 cm 2D Systolic Function EF 4C: 62.20 >55% EF 2C: 66.30 >55% EF BiP: 63.80 >55% Mitral Valve MV Pk E: 0.65 MV PK A: 0.87 MV Decel Time: 221.00 E/A: 0.70 E'Lateral: 9.25 E'Medial: 7.07 E/E' Med: 9.20 E/E' Lat: 7.00 PHT: 65.00 MVA PHT: 3.38 Decel Oxford: 2.94 Aortic Valve AoV Pk Gage: 1.61 AoV Mn Gage: 1.09 AoV VTI: 0.34 AoV Pk Grad: 10.00 Aov Mn Grad: 5.00 JANIE Cont.VTI: 3.35 LVOT LVOT Pk Gage: 1.53 LVOT Mn Gage: 1.02 LVOT VTI: 0.33 LVOT Pk Grad: 9.00 LVOT Mn Grad: 5.00 LVOT Diam: 2.10 LVOT Area: 3.46 Diastolic Function MV Pk E: 0.65 MV Pk A: 0.87 E/A: 0.70 E'Medial: 7.07 E/E' Med: 9.20 E' Laterial: 9.25 E/E' Lat: 7.00 Right Ventricle TAPSE (mm): 24.30 TVS' Gage: 13.30 Tricuspid Valve TR Pk Gage: 2.01 TR Pk Grad: 16.00 RA Press: 3.00 RVSP: 19.00 Great Vessels Aorta Sinus of Valsalva: 3.20 2.0-3.5 cm Ao Asc: 3.80 2.1-3.4 cm Updated in Other Vendor System with Status of Final Damian Hendricks MD electronically signed on 03/16/2025 7:37:14 PM with status of Final
--- NOTE | 2025-03-16 07:26 | MHC.CM.PN ---
CM met with Patient at bedside and addressed IMM with her, providing Patient with the original and a copy has been placed on the chart. Patient lives in a house with her /HCP and he will transport to home at time of dc. Patient uses a cane to assist with mobility and she required no home services [employer]. Home/self care is Patient's goal and CM has initiated and will follow for dc planning. PCP is Dr. Javi Schmitz.
[2025-03-16 07:31] VITALS: BP 162/90; PULSE 64; RESP 20; TEMP 36.4; O2SAT 95
[2025-03-16 07:36] LABS: MANUAL DIFF FLAG NO
[2025-03-16 07:49] LABS: Estimated Average Glucose 114 mg/dL; Hemoglobin A1c % 5.6 % (<6.0)
[2025-03-16 07:51] LABS: Basophils Absolute Auto 0.1 X10*3/uL (0.0-0.2); Basophils Percent Auto 0.9 % (0-2); Eosinophils Absolute Auto 0.1 X10*3/uL (0.0-0.4); Eosinophils Percent Auto 2.2 % (0-4); Hematocrit 37.5 % (37.0-47.0); Hemoglobin 12.4 g/dl (12.0-16.0); Imm Gran Abs Auto 0.04 X10*3/uL (0.00-0.03); Imm Gran Pct Auto 0.7 % (0.0-0.4); Lymphocytes Absolute Auto 1.4 X10*3/uL (1.2-4.9); Mean Corpuscular HGB Conc 33.1 g/dl (31.0-35.0); Mean Corpuscular Hemoglobin 30.2 pg (27.0-33.0); Mean Corpuscular Volume 91.2 fL (80.0-98.0); Mean Platelet Volume 9.5 fL (9.4-12.3); Monocytes Absolute Auto 0.4 X10*3/uL (0.1-1.2); Monocytes Percent Auto 6.5 % (2-11); Neutrophils Absolute Auto 3.9 x10*3/uL (2.0-8.3); Neutrophils Percent Auto 66.7 % (45-73); Platelet Count 146 X10*3/uL (160-400); Red Blood Count 4.11 X10*6/uL (4.20-5.50); Red Cell Distribution Width 13.2 % (11.0-16.0); White Blood Count 5.9 X10*3/uL (4.8-10.8)
[2025-03-16 07:57] LABS: Anion Gap 14 (12-20); Blood Urea Nitrogen 19 mg/dL (9-16); Calcium 9.5 mg/dL (8.4-10.2); Carbon Dioxide 24 mmol/L (22-29); Chloride 109 mmol/L (96-108); Creatinine Clr Calc Pharmacy 83.9; Estimated Glomerular Filt Rate > 60; Glucose Random 108 mg/dL (60-115); Sodium 143 mmol/L (135-145)
[2025-03-16 08:02] LABS: Cholesterol 161 mg/dL (<200); HDL Cholesterol 58 mg/dL (>40); LDL Cholesterol Calculated 78 mg/dL (<100); Triglycerides 128 mg/dL (<150)
[2025-03-16 08:07] VITALS: BP 162/90; PULSE 64; O2SAT 95
--- NOTE | 2025-03-16 08:58 | PHA.MEDREC ---
Addendum entered by Robby Araujo PharmD 03/16/25 09:15: reviewed Original Note: Pharmacy Consult ? Medication Reconciliation Pharmacy has completed the medication reconciliation. Spoke with pt and she confirmed her medications. Pt confirmed she uses her Fluocinolone ointment usually on Sundays and and did it last Thursday.
[2025-03-16 09:11] LABS: Reflex LDLD? No
--- NOTE | 2025-03-16 09:28 | PM.NEUROCN ---
History of Present Illness Data of Consult Service Date: 03/16/25 Primary Care Provider: Javi Schmitz MD [facility] Reason for consult: Right arm weakness 69 years old woman I was asked to see for possibility of transient ischemic attack. She was admitted last night with complain of right arm weakness. She said that she was at home when at 1 point she noted that her right arm and hand were weak. She could not use it and had to use her left arm to hold her right arm. There was no problem with the face speech or language or leg. There was no numbness or tingling or pain. But I reviewed her initial note and apparently she had complain of right shoulder and arm pain. She said that this weakness lasted for few minutes and then disappeared. Few minutes later she had weakness again and it happened few times. There was no associated mental confusion or headache. In addition, she stated that this type of problem has happened before and affected her left arm. Review of Systems Review of Systems: No recent neck injury. [facility] Past Medical History Medical History (Updated 03/16/25 @ 09:31 by Alexsander Wong MD) Lichen sclerosus HLD (hyperlipidemia) HTN (hypertension) No known health problems Family History Family History Brother CAD (coronary artery disease) Mother CAD (coronary artery disease) Surgical History Surgical History Hx of cholecystectomy Social History Social History Household Members: Spouse Housing: House Do you presently have visiting nurse or other home services: No Alcohol intake: current Alcohol intake frequency: does not drink Patient Tobacco Use Status: Former Tobacco user Tobacco use type: Smokeless Tobacco Smoked in Last 30 Days: No e-Cigarette/Vaping Use: Currently Using Second Hand Smoke Exposure: No Use of substances other than those prescribed or required for medical reasons: No Advance Directives: No Advance Directives Information Provided: No Advance Directives on File: No Advance Directives Date on File: 06/23/21 Recently lost weight without trying: No Patient : No service: No Sexual orientation: Straight/Heterosexual Gender identity: Female Meds Allergies Allergy/AdvReac Type Severity Reaction Status Date / Time No Known Allergies (No Known Allergy Verified 03/15/25 18:55 Allergies*) Active Medications: Current Medications Acetaminophen (Acetaminophen 325 Mg Tablet) 975 mg PO Q6H PRN PRN Reason: Pain, Mild 1-3,fever,headache Last Admin: 03/16/25 04:15 Dose: 975 mg Aspirin (Aspirin Enteric Coated 81 Mg Tablet.Dr) 81 mg PO DAILY [facility] Diazepam (Diazepam 10 Mg/2 Ml Cartridge) 5 mg IVPUSH ONCE PRN PRN Reason: Sedation Enoxaparin Sodium (Enoxaparin Sodium 40 Mg/0.4 Ml Syringe) 40 mg SUBCUT Q24H [facility] Home Medications ?Medication ?Instructions ?Recorded ?Confirmed ?Last Taken ?Type latanoprost 0.005 % eye drops 1 drp ophthalmic (eye) BEDTIME 06/22/21 03/16/25 03/15/25 History aspirin 81 mg tablet,delayed 81 mg PO DAILY 09/04/23 03/16/25 03/15/25 History release meloxicam 15 mg tablet 15 mg PO DAILY 09/04/23 03/16/25 03/15/25 History rosuvastatin 5 mg tablet 5 mg PO DAILY 05/13/24 03/16/25 03/15/25 History ascorbic acid (vitamin C) 250 mg 250 mg PO DAILY 03/16/25 03/16/25 03/15/25 History chewable tablet (Vitamin C) cholecalciferol (vitamin D3) 25 25 mcg PO DAILY 03/16/25 03/16/25 03/15/25 History mcg (1,000 unit) chewable tablet (Vitamin D3) fluocinolone 0.025 % topical 1 appl topical SUTH 03/16/25 03/16/25 03/12/25 History ointment (Synalar) multivitamin with minerals-folic 1 tab PO DAILY 03/16/25 03/16/25 03/15/25 History acid 200 mcg chewable tablet (Multivitamin Gummies) timolol maleate 0.5 % eye drops 1 drp ophthalmic (eye) Q12H 03/16/25 03/16/25 03/15/25 History Physical Exam Vital Signs: Vital Signs: Last Vital Signs Temp 97.5 F 03/16/25 07:31 Pulse 64 03/16/25 08:07 Resp 20 03/16/25 07:31 BP 162/90 H 03/16/25 08:07 Pulse Ox 95 03/16/25 08:07 O2 Del Method Room Air 03/16/25 07:31 BMI result Body Mass Index 36.7 Neuro: Other: She is alert and awake with normal spontaneity of speech fluency comprehension and affect. Face is symmetrical. Visual acevedo are full. There is no pronator drift. There was no focal weakness. Deep tendon reflexes are absent. Speech is normal. Results Labs 03/16/25 07:20 03/16/25 07:20 Labs: Short CBC 03/15/25 03/16/25 Range/Units 19:26 07:20 WBC 7.4 5.9 (4.8-10.8) X10*3/uL Hgb 12.8 12.4 (12.0-16.0) g/dl Hct 37.9 37.5 (37.0-47.0) % Plt Count 164 146 L (160-400) X10*3/uL BMP 03/15/25 03/16/25 19:26 07:20 Sodium 142 143 Potassium 4.1 4.0 Chloride 111 H 109 H Carbon Dioxide 23 24 BUN 26 H 19 H Creatinine 0.84 0.67 Calcium 9.4 9.5 Liver Function 03/15/25 Range/Units 19:26 Total Bilirubin 0.2 (0.0-1.0) mg/dL AST 25 (5-31) U/L ALT 19 (0-31) U/L Alkaline Phosphatase 76 (39-117) U/L Albumin 4.5 (3.5-5.0) g/dL CTA of brain and neck did not reveal any vascular stenosis. Brain imaging revealed moderate cerebral atrophy more so of cerebellum and [id number] chronic microvascular ischemic changes. Assessment and Plan (1) Right arm weakness: Status: Acute Etiology of the type of right arm weakness she complain of, lasting for few minutes at a time, happened few times, not associated with any pain or discomfort, and previously happened to her left arm is difficult to explain. One could consider possibility of an intracranial atherosclerotic lesion impacting a branch of middle cerebral artery but overall description of symptoms were atypical. In any case, my suggestion is to cover her for vascular disease with anti-platelet agent, statin, and blood pressure control. Otherwise reassurance and education is needed. I also noted significant cerebral and cerebellar atrophy, which sometime can happened with exposure to to much alcohol. She should not drink alcohol. Procedures Date of Service Date of Service: 03/16/25
[2025-03-16] MEDS: Aspirin Enteric Coated 81 MG TABLET.DR PO (10:36)
[2025-03-16] MEDS: Enoxaparin Sodium 40 MG/0.4 ML SYRINGE SUBCUT (10:36)
[2025-03-16 11:06] VITALS: BP 131/67; PULSE 78; RESP 18; TEMP 36.2; O2SAT 95
--- NOTE | 2025-03-16 12:07 | P.DS_ITS ---
DS: Providers Provider Date of Service: 03/16/25 Date of admission: 03/16/25 02:57 Date of discharge: 03/16/25 Primary care physician: Javi Schmitz MD Consults: 03/16/25 02:57 Consult to Neurology Routine Consulting Provider: Alexsander Wong Reason for consultation: TIA Attending physician on discharge: Enrique Baugh Discharging clinician: Jayla Castellanos DS: Diagnosis Discharge Diagnosis (1) Right arm weakness: Status: Acute DS: Summary Hospital Course Hospital Course: From H&P on the day of admission Kerry Camacho is a 69 years old woman with past medical history significant for TIAs, hyperlipidemia and hypertension presents to the emergency department complaining of right arm numbness that started yesterday at 5:30 PM. She denied numbness or weakness to the lower extremities. She denied headache, face numbness or tingling, palpitations, dizziness, speech difficulty or loss of consciousness. She also denied chest pain, shortness of breath, chest pain, fever or chills. She denied any acute gastrointestinal or genitourinary symptoms. Patient stated that over symptoms normalized. She reported chronic pain to the right arm and shoulder. She denied tobacco smoking, alcohol abuse or illicit drug use. She vapes. She uses a cane for ambulation. In the ED, she was found to have stable vital signs. Blood pressure was found to be elevated (max 208/90). Last BP is 182/55. CBC and CMP are essentially unremarkable. Head and neck CTA showed no acute findings. ECG showed normal sinus rhythm and low voltages without ischemic changes. ED tx: Lisinopril 40 mg p.o., aspirin 325 mg p.o., labetalol 100 mg. Right arm numbness Treated with aspirin. Head and neck CTA unremarkable, seen by Neurology who recommended to continue aspirin statin and blood pressure control. Blood pressure improved with no additional therapy. LDL 78, HbA1c 5.6. MRI of the brain was obtained which showed no evidence of acute stroke. Possible TIA, we will increase dose of rosuvastatin to 20 mg daily. Right arm symptoms have completely resolved. No further inpatient workup recommended at this time. Ec hocardiogram was obtained and is pending at the time of discharge. Seen by Physical therapy who recommended home with physical therapy services and front wheeled walker Time Attestation Discharge Coordination Time (in mins): 32 Quality: Safe Use of Opioids Does Pt have an Active Cancer Diagnosis on the Problem List?: No Quality: Stroke Does the patient have a stroke diagnosis?: No Physical Exam Vital Signs: Vital Signs: Last Vital Signs Temp 97.2 F 03/16/25 11:06 Pulse 78 03/16/25 11:06 Resp 18 03/16/25 11:06 BP 131/67 03/16/25 11:06 Pulse Ox 95 03/16/25 11:06 O2 Del Method Room Air 03/16/25 11:06 BMI result Body Mass Index 36.7 Const: Nutritional Appearance: well nourished Orientation/consciousness: patient oriented x3 Resp: Effort & Inspection: normal respiratory effort and no respiratory distress Auscultation: clear to auscultation bilaterally Neuro: General: patient oriented x3 Cranial nerves: Yes CN's II-XII intact bilaterally and Yes Bilaterally intact EOM present DS: Data Data Completed and Pending Completed studies during hospitalization [Text1]: Procedures Resection of Gallbladder, Percutaneous Endoscopic Approach (06/22/21) Labs on day of discharge: Laboratory Results - last 24 hr 03/15/25 03/16/25 19:26 07:20 WBC 7.4 5.9 RBC 4.24 4.11 L Hgb 12.8 12.4 Hct 37.9 37.5 MCV 89.4 91.2 MCH 30.2 30.2 MCHC 33.8 33.1 RDW 13.3 13.2 Plt Count 164 146 L MPV 9.3 L 9.5 Immature Gran % (Auto) 0.3 0.7 H Neut % (Auto) 69.5 66.7 Lymph % (Auto) 21.5 23.0 Trimble % (Auto) 6.3 6.5 Eos % (Auto) 1.9 2.2 Baso % (Auto) 0.5 0.9 Lymph # (Auto) 1.6 1.4 Trimble # (Auto) 0.5 0.4 Eos # (Auto) 0.1 0.1 Baso # (Auto) 0.0 0.1 Abs Immat Gran (auto) 0.02 0.04 H Absolute Neuts (auto) 5.2 3.9 Absolute Nucleated RBC 0.000 0.000 Nucleated RBC % (auto) 0.0 0.0 Sodium 142 143 Potassium 4.1 4.0 Chloride 111 H 109 H Carbon Dioxide 23 24 Anion Gap 12 14 BUN 26 H 19 H Creatinine 0.84 0.67 Estim Creat Clear Calc 66.0 83.9 Estimated GFR > 60 > 60 Random Glucose 125 H 108 Estimat Average Glucose 114 Hemoglobin A1c % 5.6 Calcium 9.4 9.5 Magnesium 2.0 Total Bilirubin 0.2 AST 25 ALT 19 Alkaline Phosphatase 76 Troponin I High Sens < 2.7 Total Protein 6.9 Albumin 4.5 Triglycerides 128 Cholesterol 161 LDL Cholesterol, Calc 78 HDL Cholesterol 58 Lipase 23 Discharge Plan Discharge Anticipated Discharge Date/Time: 03/16/25 14:36 Patient Disposition: Home Health Service Discharge Diagnosis: right arm weakness Referrals: [facility] [Outside] - 1 Week Javi Schmitz MD [Primary Care Provider, Medical] - 1 Week Discharge Medications: New rosuvastatin [Crestor] 20 mg tablet 20 mg PO DAILY Qty: 90 0RF (DME) Ultra-Light Rollator Misc See Rx Instructions .Route Qty: 1 0RF Rx Instructions: As directed Continued latanoprost 0.005 % drops 1 drp ophthalmic (eye) BEDTIME lisinopril 10 mg Tablet 10 mg PO DAILY Qty: 30 0RF Protocol: Hold for SBP< HOLD for SBP < : 90 timolol maleate 0.5 % drops 1 drp ophthalmic (eye) Q12H ascorbic acid (vitamin C) [Vitamin C] 250 mg Tablet,Chewable 250 mg PO DAILY cholecalciferol (vitamin D3) [Vitamin D3] 25 mcg (1,000 unit) Tablet,Chewable 25 mcg PO DAILY fluocinolone [Synalar] 0.025 % ointment 1 appl topical SUTH Rx Instructions: Apply a thin coat at bedtime twice a week as directed multivit with min-folic acid [Multivitamin Gummies] 200 mcg Tablet,Chewable 1 tab PO DAILY meloxicam 15 mg tablet 15 mg PO DAILY aspirin 81 mg tablet,delayed release (DR/EC) 81 mg PO DAILY Discontinued rosuvastatin 5 mg tablet 5 mg PO DAILY Discharge Orders: Discharge Order (Routine); Ordered 03/16/25 Ordered By: Jayla Castellanos Activity on Discharge: As tolerated Stand Alone Forms: Patient Portal Discharge page Print Language: Lebanese Care Plan Goals: See below Health Concerns: Right arm weakness-resolved Plan of Treatment: Due to gait pattern/balance impairment - PT has recommended home with physical therapy services as well as a walker Neurology recommended to continue aspirin, statin and blood pressure medication Call to schedule follow-up appointment with PCP Assessment: See discharge summary Discharge Date/Time: 03/16/25 15:40
--- NOTE | 2025-03-16 12:13 | P.F2F_ITS ---
Service Date Service Date: 03/16/25 Encounter Date of encounter: 03/16/25 Reasons for Services Signs and symptoms assessed: home PT services Reason for physical therapy: home safety and mobility, therapeutic exercises and gait/transfer training Overseeing Care: Javi Schmitz Homebound: Leaving the home is medically contraindicated at this time without the asist of a device and/or another person due th the listed conditions above and below. Reason homebound: unsteady gait / fall risk Certification: Based on the above findings, I certify that this patient is confined to the home and needs intermittent care home care, physical therapy and/or speech therapy, or continues to need occupational therapy. The patient is under my care, and I have initiated the establishment of the plan of care. The patient will be followed by a physician who will periodically review the plan of care. Time Spent With Patient Time: Total time managing care of this patient today ____ minutes.
--- NOTE | 2025-03-16 12:34 | MHC.CM.PN ---
Addendum entered by Adali Morales 03/16/25 14:09: [facility] accepted Patient. Addendum entered by Adali Morales 03/16/25 13:45: [facility] is unable to accommodate; additional [facility] referrals have been made and CM will follow. Original Note: Per ROUNDS discussion, Patient will be medically cleared for dc to home today, with services. A referral was made to [facility], who has been made aware of today's dc.
[2025-03-16] MEDS: diazePAM 10 MG/2 ML CARTRIDGE 5 MG IVPUSH (12:50)
--- NOTE | 2025-03-16 18:56 | P.CDIM_ITS ---
PROVIDER RESPONSE TEXT: To clarify, the appropriate diagnosis supported by the clinical indicators: Obesity Due to excess calories QUERY TEXT: PHYSICIAN'S DOCUMENTATION REQUEST Date of Query: 03/16/2025 12:19 PM EDT Patient Name: Marija Camacho Admit Date: 03/16/2025 Dear Jayla Castellanos PA, A review of the medical record indicates additional documentation may be needed. Please review below and update the documentation accordingly. Clinical Indicators: Height: 5ft 3in Weight: 94kg BMI: 36.7 Other Clinical Notes Supporting Significance of the BMI: Nursing notes Height and Weight: Obese class II with BMI 36.7 If possible, please provide an associated diagnosis related to the abnormal BMI, such as: Obesity Due to excess calories Obesity Drug induced Obesity Due to other cause Specify the other cause Severe or Morbid Obesity With alveolar hypoventilation Severe or Morbid Obesity Without alveolar hypoventilation Other (explain) Clinically unable to determine (explain) Thank you, Estefany Hendricks, CCS, CDIS Use of terms such as suspected, likely, concern for, or probable (associated with a specific diagnosis that is being evaluated, monitored, or treated as if it exists) are acceptable and can be coded in the inpatient setting, when documented at the time of discharge. Please use your independent medical judgment in providing your response. THIS QUERY IS PART OF THE PERMANENT MEDICAL RECORD
== END 2025-03-16 15:40 | disposition home health service (06) | DRG 69 ==
LOC: HO.ED 03-16 02:58 → HO.EDOVER 03-16 03:22 → HO.IMC 03-16 03:31
PROVIDERS: Physician Assistant; Admitting Provider Internal Medicine; Emergency Provider Emergency Medicine; PCP Internal Medicine; Visit Provider Physician Assistant Medical
DX: G45.9 Transient cerebral ischemic attack, unspecified (principal); E78.5 Hyperlipidemia, unspecified; H40.9 Unspecified glaucoma; I10 Essential (primary) hypertension; E66.09 Other obesity due to excess calories; Z68.36 Body mass index [BMI] 36.0-36.9, adult; Z71.3 Dietary counseling and surveillance; R20.0 Anesthesia of skin; I16.0 Hypertensive urgency; Z87.891 Personal history of nicotine dependence; Z79.82 Long term (current) use of aspirin; Z79.899 Other long term (current) drug therapy
CPT/HCPCS: 36415; 70496; 70498; 70551; 80048; 80053; 80061; 83036; 83690; 83735; 84484; 85025; 93005; 93306; 97162; 97166; 99285; J1650; J3360; Q9967

== ENCOUNTER → 2025-03-15 18:57 | Outpatient (BNV) | payer MEDICARE, SELFPAY | PROVIDERS: Admitting Provider Internal Medicine; Emergency Provider Emergency Medicine; PCP Internal Medicine; Visit Provider Internal Medicine Cardiovascular Disease | DX: R07.9 Chest pain, unspecified (principal) | CPT/HCPCS: 93010 ==

== ENCOUNTER → 2025-03-15 23:18 | Outpatient (BNV) | payer MEDICARE, SELFPAY | PROVIDERS: Emergency Provider Emergency Medicine; PCP Internal Medicine; Visit Provider Radiology Diagnostic Radiology | DX: R53.1 Weakness (principal) | CPT/HCPCS: 70496; 70498 ==

== ENCOUNTER 2025-03-16 02:57 | Outpatient (BNV) | payer MEDICARE, SELFPAY | END 2025-03-16 11:50 | PROVIDERS: Admitting Provider Internal Medicine; Emergency Provider Emergency Medicine; PCP Internal Medicine; Visit Provider Radiology Diagnostic Radiology | DX: I67.82 Cerebral ischemia (principal) | CPT/HCPCS: 70551 ==

== ENCOUNTER 2025-03-16 02:57 | Outpatient (BNV) | payer MEDICARE, SELFPAY | END 2025-03-16 07:00 | PROVIDERS: Admitting Provider Internal Medicine; Emergency Provider Emergency Medicine; PCP Internal Medicine; Visit Provider Internal Medicine Cardiovascular Disease | DX: I42.2 Other hypertrophic cardiomyopathy (principal) | CPT/HCPCS: 93306 ==

== ENCOUNTER → 2025-03-16 02:57 | Outpatient (BNV) | payer MEDICARE, SELFPAY | PROVIDERS: Admitting Provider Internal Medicine; Emergency Provider Emergency Medicine; PCP Internal Medicine; Visit Provider Internal Medicine | DX: R29.898 Other symptoms and signs involving the musculoskeletal system (principal) | CPT/HCPCS: 99222; 99499; G0180 ==

== ENCOUNTER → 2025-03-16 02:57 | Outpatient (BNV) | payer MEDICARE, SELFPAY | PROVIDERS: Admitting Provider Internal Medicine; Emergency Provider Emergency Medicine; PCP Internal Medicine; Visit Provider Psychiatry & Neurology Neurology | DX: R29.898 Other symptoms and signs involving the musculoskeletal system (principal) | CPT/HCPCS: 99232 ==

== ENCOUNTER 2025-09-12 11:10 | Outpatient (AMB) | payer MEDICARE, SELFPAY ==
--- NOTE | 2025-09-12 11:12 | MHC.OFFVIS ---
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 c/o voiding frequently Information Interpreted: non-clinical & clinical Vice President Medical Affairs: Vice President Medical Affairs Present (Марина) Accompanied by: Self / Same As Patient Allergies No Known Allergies (No Known Allergies*) Allergy (Verified 09/12/25 11:23) Medication List - Last Reconciled 09/12/25 by Sonam Christopher LPN ascorbic acid (vitamin C) (Vitamin C) 250 mg PO DAILY aspirin 81 mg PO DAILY cholecalciferol (vitamin D3) (Vitamin D3) 25 mcg PO DAILY fluocinolone 0.025% (Synalar) 1 appl topical SUTH latanoprost 0.005% 1 drp ophthalmic (eye) BEDTIME lisinopril 10 mg See Protocol PO DAILY meloxicam 15 mg PO DAILY multivit with min-folic acid 200 mcg (Multivitamin Gummies) 1 tab PO DAILY rosuvastatin (Crestor) 20 mg PO DAILY timolol maleate 0.5% 1 drp ophthalmic (eye) Q12H walker (Ultra-Light Rollator misc) As directed Do you need a note to return to daycare/school/sports/work: No HPI Comments Details: Patient is a postmenopausal woman presenting for her 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 Currently not sexually active due to medical condition. Denies any vaginal dryness or irritation. Attempting to eat a healthy diet with calcium and vitamin D, following up in PT post right knee replacement surgery, using a cane. Last pap smear; 2022, negative. Last mammogram; 2024. Colonoscopy is UTD. [facility] Medical History Lichen sclerosus HLD (hyperlipidemia) HTN (hypertension) No known health problems Surgical History H/O right knee surgery Hx of cholecystectomy Family History Brother CAD (coronary artery disease) Mother CAD (coronary artery disease) Social History Household Members: Spouse Housing: House Do you presently have visiting nurse or other home services: No Alcohol intake: current Alcohol intake frequency: does not drink Patient Tobacco Use Status: Former Tobacco user Tobacco use type: Smokeless Tobacco e-Cigarette/Vaping Use: Currently Using Second Hand Smoke Exposure: No Advance Directives Date on File: 06/23/21 service: No Sexual orientation: Straight/Heterosexual Gender identity: Female Female Reproductive History Menstrual Age of Menarche: 11 Total pregnancies: 2 Number of Living Children: 2 Date of last pap smear: 09/04/23 History of abnormal pap smear: No Date of Mammogram: 01/10/25 Review of Systems Const All systems reviewed & are unremarkable except as noted in HPI and below Reports as per HPI Eyes Reports no additional complaints ENT Reports no additional complaints Card Reports no additional complaints Resp Reports no additional complaints GI Reports as per HPI and Reports no additional complaints Reports as per HPI Musc Reports no additional complaints Skin/Breast Reports as per HPI Neuro Reports no additional complaints Psych Reports no additional complaints Endo Reports no additional complaints Joey/Lymph Reports no additional complaints Aller/Immun Reports no additional complaints Physical Exam Vital Signs: BMI result Body Mass Index 36.1 Const General: cooperative, healthy appearing, no acute distress, well developed and alert Orientation/consciousness: patient oriented x3 HEENT Head: Yes normal to inspection Eyes General: appearance normal, both eyes and all related structures Neck Neck: Yes normal visual inspection Thyroid: Thyroid normal Chest Chest palpation & inspection: normal inspection of the chest and other (no puckering, dimpling, peau de orange, retraction, discharge, masses) Breast/axilla inspection: normal inspection of the breasts Breast/axilla palpation: normal palpation of the breasts Resp Effort & Inspection: normal respiratory effort GI Inspection: Yes normal to inspection Palpation (GI): Soft to palpation Rectal Exam - Female: deferred General: Yes bladder normal to palpation External Female Exam: normal external appearance (mild hypopigmentation, no lesion, or thickening) and normal appearance of the urethra Speculum Exam - Vagina: normal appearance of the vagina, normal palpation, normal vaginal discharge and vagina atrophic Speculum Exam - Cervix: normal appearance of the cervix and normal palpation Bimanual exam- vagina & uterus: normal bimanual exam, normal palpation, uterine size normal, bladder normal to palpation, normal palpation and non-tender Bimanual Exam- Adnexa, other: no masses Skin General skin exam: no rashes or lesions noted Rashes: no rashes Neuro General: patient oriented x3 Cognition (Neuro): normal cognition Extrem General: Yes normal to inspection Psych Attitude: cooperative Thought process: Normal thought process present Assessment & Plan Assessment & Plan (1) Encounter for well woman exam with routine gynecological exam: Code(s): Z01.419 - Encounter for gynecological examination (general) (routine) without abnormal findings Category: Medical Plan: Discussed: Current recommendations for pap smears per ASCCP guidelines. Breast awareness, periodic self breast exams and yearly mammogram. Maintain a healthy lifestyle, well balanced diet including Calcium 1,200 mg and Vitamin D 600 IU daily, and routine exercise. Contact the office with any postmenopausal bleeding. Patient verbalizes understanding and agrees to the plan of care. She was given opportunity to ask questions and all questions were answered to the best of my ability. RTO in 1 year for annual senior information security consultant exam. (2) Lichen sclerosus: Code(s): L90.0 - Lichen sclerosus et atrophicus Category: Medical Plan Discussed: Medication use and tapering of medication, skipping periods of time and using as needed based on symptoms. Follow up in 1 year or sooner if any concerns. The patient expressed understanding and agreement with the plan of care. All of her questions and concerns were addressed to the best of my ability. This note is constructed using voice recognition software. While every effort has been made to ensure accuracy, outdoor illuminating engineer errors may have been included. Medications: New clobetasol 0.05% not to be used with other topical cortisone cream in the area at the same time 1 g topical .twice weekly 45 grams 1RF 90 days Coding Level of Care Code Est Pt Prev Care >65y(14591) Diagnoses Encounter for well woman exam with routine gynecological exam Z01.419 Lichen sclerosus L90.0
[2025-09-12 11:15] VITALS: BP 114/72; BMI 36.1
--- OUTSIDE RECORDS SUMMARY | 2025-09-12 14:44 | XMS_ITS | Encounter Summary ---
Author Organization [facility] Address [address] [place] [address] Phone Care Team Providers Care Marketing Content Coordinator Name Role Phone Pcp, Unknown Primary Care Provider Unavailabl e Nadir, Javi A DO Unavailable Bigda, Javi A DO Primary Care Provider [phone] Encounter Details Date Type Department Care Team (Latest Contact Info) Description 08/19/2019 Transcribe Orders [facility] [address] [address] Yamel Deluca PA-C [address] [place] [address] [email or web address] Impaired fasting glucose (Primary Dx); Avitaminosis D; Pain in joint, multiple sites; Mixed hyperlipidemia; Screening for unspecified condition Social History Tobacco Use Types Packs/Day Years Used Date Smoking Tobacco: Never Assessed Comments Unknown Sex and Gender Information Value Date Recorded Sex Assigned at Not on file Legal Sex Female 7:36 AM EDT Gender Identity Not on file Sexual Orientation Not on file documented as of this encounter Plan of Treatment Not on file documented as of this encounter Results * Hemoglobin A1c (08/19/2019 8:12 AM EST) HEMOGLOBIN A1C 5.5 4.3 - 5.8 % [facility] Blood 08/19/2019 8:12 AM EST 08/19/2019 8:50 AM EST December [facility] LAB BLOOD BKR ORDERABLES Fin al Result Performing Organization Address [facility]/ZIP Co de Phone Number [address] [address] * 25-OH vitamin D (08/19/2019 8:12 AM EST) 25 [place] VIT D (TOTAL) 60 30 - 60 ng/mL [facility] Blood 08/19/2019 8:12 AM EST 08/19/2019 8:50 AM EST December [facility] LAB BLOOD BKR ORDERABLES Fin al Result Performing Organization Address [facility] Co de Phone Number [address] [address] * Lyme screen with reflex to Western blot, blood (08/19/2019 8:12 AM EST) Lyme AB IgG Negative Negative [facility] Lyme AB IgM Negative Negative [facility] Blood 08/19/2019 8:12 AM EST 08/19/2019 8:50 AM EST December [facility] LAB BLOOD BKR ORDERABLES Fin al Result Performing Organization Address [facility] Co de Phone Number [address] [address] * Rheumatoid factor (08/19/2019 8:12 AM EST) RHEUMATOID FACTOR <10.0 0.0 - 14.0 IU/ml [facility] Blood 08/19/2019 8:12 AM EST 08/19/2019 8:50 AM EST Yamel [facility] LAB BLOOD BKR ORDERABLES Fin al Result Performing Organization Address City/[facility] Co de Phone Number [address] [address] * (ABNORMAL) Antinuclear antibody (LUPE) (08/19/2019 8:12 AM EST) LUPE SCREEN ON HEP 2 Positive(A ) Negative [facility] Comment:An LUPE Titer has bee n reflexed. The results will follow. Blood 08/19/2019 8:12 AM EST 08/19/2019 8:50 AM EST December [facility] PA-C LAB BLOOD BKR ORDERABLES Fin al Result Performing Organization Address City/[facility]/ZIP Co de Phone Number [address] [address] * Hepatitis C antibody, qualitative (08/19/2019 8:12 AM EST) Pathologist [facility] HCV NON-REACTIV E NON-REACTI VE [facility] Blood 08/19/2019 8:12 AM EST 08/19/2019 8:50 AM EST Yamel [facility] PA-C LAB BLOOD BKR ORDERABLES Fin al Result Performing Organization Address [facility] de Phone Number [address] [address] * Comprehensive metabolic panel (08/19/2019 8:12 AM EST) Pathologist [facility] SODIUM 140 133 - 146 mmol/L [facility] POTASSIUM 4.2 3.3 - 5.1 mmol/L [facility] CHLORIDE 102 96 - 108 mmol/L [facility] CO2 26 21 - 35 mmol/L [facility] BUN 18 6 - 19 mg/dL [facility] CREATININE 0.70 0.5 - 1.5 mg/dL [facility] GLUCOSE 98 70 - 99 mg/dL [facility] ALBUMIN 4.4 3.9 - 4.8 g/dL [facility] TOTAL PROTEIN 7.0 6.5 - 8.0 g/dL [facility] CALCIUM 9.5 8.4 - 10.3 mg/dL [facility] ALKALINE PHOSPHATASE 86 39 - 117 U/L [facility] TOTAL BILIRUBIN 0.4 0.0 - 1.2 mg/dL [facility] AST 28 0 - 37 U/L [facility] ALT 22 0 - 40 U/L [facility] GLOBULIN 2.6 1 - 4.8 g/dL [facility] EGFR 91 >59 mL/min/1.7 3m2 [facility] Comment:If patient is black, multiply result by 1.159. Estimated glomerular filtration rate calculated using the CKD-EPI equation. ANION GAP 16 10 - 20 mmol/L [facility] Blood 08/19/2019 8:12 AM EST 08/19/2019 8:50 AM EST us December [facility] LAB BLOOD BKR ORDERABLES Fin al Result Performing Organization Address City/[facility]/ZIP Co de Phone Number [address] [address] * (ABNORMAL) Lipid panel (08/19/2019 8:12 AM EST) HDL 62 mg/dL [facility] Comment: Interpretation <40 mg/dL: Low HDL cholesterol (major risk factor for CHD) Greater than or equal to 60 mg/dL: High HDL cholesterol ( negative risk factor for CHD) HDL - cholesterol is affected by a number of factors, e.g. smoking, excerise, hormones, sex and age. CHOLESTEROL 155 0 - 240 mg/dL [facility] TRIGLYCERIDES 126 30 - 160 mg/dL [facility] LDL 68 50 - 129 mg/dL [facility] Comment: LDL levels in terms of risk for coronary heart disease: <100 mg/dL: Optimal 100-129 mg/dL: Near or above optimal 130-159 mg/dL: Borderline high 160-189 mg/dL: High >190 mg/dL: Very High CARDIAC RISK RATIO 2.5(L) 3.3 - 4.4 C [facility] Blood 08/19/2019 8:12 AM EST 08/19/2019 8:50 AM EST us December [facility] LAB BLOOD BKR ORDERABLES Fin al Result Performing Organization Address City/[facility]/ZIP Co de Phone Number [address] [address] documented in this encounter Visit Diagnoses Diagnosis Impaired fasting glucose- Primary Avitaminosis D Unspecified vitamin D deficiency Pain in joint, multiple sites Mixed hyperlipidemia Screening for unspecified condition documented in this encounter Care Teams Marketing Content Coordinator Relationship Specialty Start Date End Date Pcp, Unknown PCP - General 08/19/19 08/14/20 Javi Shcmitz DO [address] [place] [address] [email or web address] PCP - General Internal Medicine 08/15/20 Javi Schmitz DO [address] [place] [address] [email or web address] Insurance Assigned Provider 07/07/20 01/05/21 documented as of this encounter Additional Source Comments The information contained in this document represents components of the legal health record. It is not the complete legal health record.[facility]
--- OUTSIDE RECORDS SUMMARY | 2025-09-12 14:44 | XMS_ITS | Encounter Summary ---
Author Organization [facility] Address [address] [place] [address] Phone Care Team Providers Care Bottling Line Attendant Name Role Phone Jerilyn Perkins CNP Primary Care Provider [phone] Bigda, Javi A DO Unavailable Pcp, Unknown Primary Care Provider Unavailabl e Bigda, Javi A DO Unavailable Bigda, Javi A DO Primary Care Provider [phone] Encounter Details Date Type Department Care Team (Latest Contact Info) Description 11/03/2018 Transcribe Orders [address] [id number] Jerilyn Perkins CNP [address] [place] [address] [id number] [email or web address] Mixed hyperlipidemia (Primary Dx) Social History Tobacco Use Types Packs/Day Years Used Date Smoking Tobacco: Never Assessed Comments Unknown Sex and Gender Information Value Date Recorded Sex Assigned at Not on file Legal Sex Female 7:36 AM EDT Gender Identity Not on file Sexual Orientation Not on file documented as of this encounter Plan of Treatment Not on file documented as of this encounter Results * CBC (11/03/2018 7:44 AM EST) WBC 4.32 3.40 - 11.20 K/uL [facility] RBC 4.54 3.80 - 4.80 M/uL [facility] HGB 13.2 12.0 - 15.0 g/dL [facility] HCT 41.2 36.0 - 46.0 % [facility] PLT 181 130 - 400 K/uL [facility] MCV 90.7 79.0 - 98.0 fL [facility] MCH 29.1 27.0 - 34.8 pg [facility] MCHC 32.0 31.5 - 36.0 g/dL [facility] RDW 13.1 10.8 - 14.6 % [facility] MPV 10.3 9.4 - 12.4 [facility] NRBC 0.00 0.00 /100 WBCs [facility] ABSOLUTE NRBC 0.00 0.00 K/uL [facility] Blood 11/03/2018 7:44 AM EST 11/03/2018 7:57 AM EST Jerilyn [facility] Maddie [facility] LAB BLOOD BKR ORDERABLES Fi nal Result Performing Organization Address [facility] de Phone Number [address] [address] * C-Reactive Protein (11/03/2018 7:44 AM EST) C REACTIVE PROTEIN 2.2 0.0 - 4.0 mg/L [facility] Blood 11/03/2018 7:44 AM EST 11/03/2018 7:57 AM EST Jerilyn [facility] Maddie [facility] LAB BLOOD BKR ORDERABLES Fi nal Result Performing Organization Address [facility] Co de Phone Number [address] [address] * Sedimentation rate (ESR) (11/03/2018 7:44 AM EST) ESR 25 0 - 30 mm/h [facility] Blood 11/03/2018 7:44 AM EST 11/03/2018 7:57 AM EST Jerilyn [facility] Maddie [facility] LAB BLOOD BKR ORDERABLES Fi nal Result Performing Organization Address City/[facility]/ZIP Co de Phone Number [address] [address] * Free T4 (11/03/2018 7:44 AM EST) Pathologist [facility] FREE T4 1.0 0.9 - 1.7 ng/dL [facility] Blood 11/03/2018 7:44 AM EST 11/03/2018 7:57 AM EST Jerilyn [employer] LENS EXAMINER LAB BLOOD BKR ORDERABLES Fi nal Result Performing Organization Address [facility] Co de Phone Number [address] [address] * TSH (11/03/2018 7:44 AM EST) [facility] TSH 1.74 0.27 - 4.20 uIU/mL [facility] Blood 11/03/2018 7:44 AM EST 11/03/2018 7:57 AM EST Jerilyn H [employer] [facility] LAB BLOOD BKR ORDERABLES Fi nal Result Performing Organization Address [facility] de Phone Number [address] [address] * (ABNORMAL) Comprehensive metabolic panel (11/03/2018 7:44 AM EST) Pathologist [facility] SODIUM 142 133 - 146 mmol/L [facility] POTASSIUM 5.0 3.3 - 5.1 mmol/L [facility] CHLORIDE 104 96 - 108 mmol/L [facility] CO2 27 21 - 35 mmol/L [facility] BUN 17 6 - 19 mg/dL [facility] CREATININE 0.70 0.5 - 1.5 mg/dL [facility] GLUCOSE 105(H) 70 - 99 mg/dL [facility] ALBUMIN 4.3 3.9 - 4.8 g/dL [facility] TOTAL PROTEIN 6.8 6.5 - 8.0 g/dL [facility] CALCIUM 9.5 8.4 - 10.3 mg/dL [facility] ALKALINE PHOSPHATASE 99 39 - 117 U/L [facility] TOTAL BILIRUBIN 0.3 0.0 - 1.2 mg/dL [facility] AST 21 0 - 37 U/L [facility] ALT 17 0 - 40 U/L [facility] GLOBULIN 2.5 1 - 4.8 g/dL [facility] EGFR 91 >59 mL/min/1.7 3m2 [facility] Comment:If patient is black, multiply result by 1.159. Estimated glomerular filtration rate calculated using the CKD-EPI equation. ANION GAP 16 10 - 20 mmol/L [facility] Blood 11/03/2018 7:44 AM EST 11/03/2018 7:57 AM EST us Jerilyn Perkins LENS EXAMINER LAB BLOOD BKR ORDERABLES Fi nal Result [address] [address] * (ABNORMAL) Lipid panel (11/03/2018 7:44 AM EST) HDL 56 mg/dL [facility] Comment: Interpretation <40 mg/dL: Low HDL cholesterol (major risk factor for CHD) Greater than or equal to 60 mg/dL: High HDL cholesterol ( negative risk factor for CHD) HDL - cholesterol is affected by a number of factors, e.g. smoking, excerise, hormones, sex and age. CHOLESTEROL 163 0 - 240 mg/dL [facility] TRIGLYCERIDES 142 30 - 160 mg/dL [facility] LDL 79 50 - 129 mg/dL [facility] Comment: LDL levels in terms of risk for coronary heart disease: <100 mg/dL: Optimal 100-129 mg/dL: Near or above optimal 130-159 mg/dL: Borderline high 160-189 mg/dL: High >190 mg/dL: Very High CARDIAC RISK RATIO 2.9(L) 3.3 - 4.4 C [facility] Blood 11/03/2018 7:44 AM EST 11/03/2018 7:57 AM EST Jerilyn Perkins LENS EXAMINER LAB BLOOD BKR ORDERABLES Fi nal Result [facility] [address] [place] [address] documented in this encounter Visit Diagnoses Diagnosis Mixed hyperlipidemia- Primary documented in this encounter Care Teams Bottling Line Attendant Relationship Specialty Start Date End Date Jerilyn Perkins CNP PCP - General Family Medicine 01/25/18 08/18/19 Pcp, Unknown PCP - General 08/19/19 08/14/20 Javi Schmitz DO PCP - General Internal Medicine 08/15/20 Javi Schmitz DO [address] [place] [address] Insurance Assigned Provider 01/29/19 07/09/19 Javi Schmitz DO [address] [place] [address] Insurance Assigned Provider 07/07/20 01/05/21 documented as of this encounter Additional Source Comments The information contained in this document represents components of the legal health record. It is not the complete legal health record.[facility]
--- OUTSIDE RECORDS SUMMARY | 2025-09-12 14:44 | XMS_ITS | Encounter Summary ---
Author Organization [facility] Address [address] [place] [address] Phone Care Team Providers Care Microsoft Dynamics Manager Architect Name Role Phone Jerilyn Perkins CNP Primary Care Provider [phone] Bigda, Javi A DO Unavailable Pcp, Unknown Primary Care Provider Unavailabl e Bigda, Javi A DO Unavailable Bigda, Javi A DO Primary Care Provider [phone] Encounter Details Date Type Department Care Team (Latest Contact Info) Description 01/25/2018 Transcribe Orders [facility] [address] [id number] Jerilyn Perkins CNP [address] [place] [address] [phone] [email or web address] Routine general medical examination at a health care facility (Primary Dx); Essential hypertension, benign; Pure hypercholesterolemia Social History Tobacco Use Types Packs/Day Years Used Date Smoking Tobacco: Never Assessed Comments Unknown Sex and Gender Information Value Date Recorded Sex Assigned at Not on file Legal Sex Female 7:36 AM EDT Gender Identity Not on file Sexual Orientation Not on file documented as of this encounter Plan of Treatment Not on file documented as of this encounter Results * (ABNORMAL) Comprehensive metabolic panel (01/25/2018 7:43 AM EDT) SODIUM 143 133 - 146 mmol/L [facility] POTASSIUM 4.8 3.3 - 5.1 mmol/L [facility] CHLORIDE 105 96 - 108 mmol/L [facility] CO2 27 21 - 35 mmol/L [facility] BUN 15 6 - 19 mg/dL [facility] CREATININE 0.80 0.5 - 1.5 mg/dL [facility] GLUCOSE 101(H) 70 - 99 mg/dL [facility] ALBUMIN 4.1 3.9 - 4.8 g/dL [facility] TOTAL PROTEIN 6.8 6.5 - 8.0 g/dL [facility] CALCIUM 9.5 8.4 - 10.3 mg/dL [facility] ALKALINE PHOSPHATASE 92 39 - 117 U/L [facility] TOTAL BILIRUBIN 0.3 0.0 - 1.2 mg/dL [facility] AST 20 0 - 37 U/L [facility] ALT 18 0 - 40 U/L [facility] GLOBULIN 2.7 1 - 4.8 g/dL [facility] EGFR 78 >59 mL/min/1.7 3m2 [facility] Comment:If patient is black, multiply result by 1.159. The eGFR calculation has changed from the MDRD equation to the CKD-EPI equation as of December 01, 2017. ANION GAP 16 10 - 20 mmol/L [facility] Blood 01/25/2018 7:43 AM EDT 01/25/2018 8:35 AM EDT us Jerilyn Perkins [facility] LAB BLOOD BKR ORDERABLES Fi nal Result Performing Organization Address City/[facility]/ZIP Co de Phone Number [address] [address] * Hepatitis A antibody, IgM (01/25/2018 7:43 AM EDT) Hepatitis A Antibody, IgM Negative Negative [facility] Blood 01/25/2018 7:43 AM EDT 01/25/2018 8:35 AM EDT Jerilyn Perkins FLAME CUTTING MACHINE OPERATOR LAB BLOOD BKR ORDERABLES Fi nal Result [address] [address] * (ABNORMAL) Lipid panel (01/25/2018 7:43 AM EDT) HDL 64 mg/dL [facility] Comment: Interpretation: Risk Level Females Decreased >55mg/dL Average 50-55 mg/dL Increased <50 mg/dL CHOLESTEROL 158 0 - 240 mg/dL [facility] TRIGLYCERIDES 107 30 - 160 mg/dL [facility] LDL 73 50 - 129 mg/dL [facility] Comment: LDL levels in terms of risk for coronary heart disease: <100 mg/dL: Optimal 100-129 mg/dL: Near or above optimal 130-159 mg/dL: Borderline high 160-189 mg/dL: High >190 mg/dL: Very High CARDIAC RISK RATIO 2.5(L) 3.3 - 4.4 [facility] Blood 01/25/2018 7:43 AM EDT 01/25/2018 8:35 AM EDT Jerilyn Perkins FLAME CUTTING MACHINE OPERATOR LAB BLOOD BKR ORDERABLES Fi nal Result [facility] [address] [place] [address] * CBC and differential (01/25/2018 7:43 AM EDT) WBC 4.95 3.40 - 11.20 K/uL [facility] RBC 4.30 3.80 - 4.80 M/uL [facility] HGB 12.7 12.0 - 15.0 g/dL [facility] HCT 38.7 36.0 - 46.0 % [facility] PLT 173 130 - 400 K/uL [facility] MCV 90.0 79.0 - 98.0 fL [facility] MCH 29.5 27.0 - 34.8 pg [facility] MCHC 32.8 31.5 - 36.0 g/dL [facility] RDW 13.2 10.8 - 14.6 % [facility] MPV 10.1 9.4 - 12.4 fl [facility] NRBC 0.00 /100 WBCs [facility] ABSOLUTE NRBC 0.00 K/uL [facility] DIFF METHOD Auto [facility] NEUTS 62.7 45.30 - 77.70 % [facility] LYMPHS 24.4 12.30 - 39.70 % [facility] MONOS 7.7 4.10 - 12.80 % [facility] EOS 3.8 0 - 7.2 % [facility] BASOS 1.0 0 - 2.80 % [facility] Granulocytes, immature (%) 0.4 0.0 - 0.9 % [facility] ABSOLUTE NEUTS 3.10 1.40 - 7.70 K/uL [facility] ABSOLUTE LYMPHS 1.21 0.60 - 3.20 K/uL [facility] ABSOLUTE MONOS 0.38 0.11 - 0.59 K/uL [facility] ABSOLUTE EOS 0.19 0.01 - 0.50 K/uL [facility] ABSOLUTE BASOS 0.05 0.00 - 0.08 K/uL [facility] Granulocytes, immature 0.02 0.00 - 0.05 K/uL [facility] Blood 01/25/2018 7:43 AM EDT 01/25/2018 8:35 AM EDT Jerilyn KristopherenEvolv [facility] LAB BLOOD BKR ORDERABLES Fi nal Result Performing Organization Address City/[facility] Co de Phone Number [address] [address] * Hepatitis B core antibody, total (01/25/2018 7:43 AM EDT) HEP B CORE AB, TOT Negative Negative [facility] Blood 01/25/2018 7:43 AM EDT 01/25/2018 8:35 AM EDT [employer] FLAME CUTTING MACHINE OPERATOR LAB BLOOD BKR ORDERABLES Fi nal Result Performing Organization Address [facility]/ZIP Co de Phone Number [address] [address] * Hepatitis C antibody, qualitative (01/25/2018 7:43 AM EDT) HCV Negative Negative [facility] Comment: This is a screening test and should be confirmed with molecular testing Blood 01/25/2018 7:43 AM EDT 01/25/2018 8:35 AM EDT us Jerilyn Perkins CNP LAB BLOOD BKR ORDERABLES Fi nal Result [facility] [address] [place] [address] documented in this encounter Visit Diagnoses Diagnosis Routine general medical examination at a health care facility- Primary Essential hypertension, benign Pure hypercholesterolemia documented in this encounter Care Teams [employer] Dynamics Manager Architect Relationship Specialty Start Date End Date Jerilyn Perkins CNP PCP - General Family Medicine 01/25/18 08/18/19 Pcp, Unknown PCP - General 08/19/19 08/14/20 Javi Schmitz DO PCP - General Internal Medicine 08/15/20 Jaiv Schmitz DO [address] [place] [address] Insurance Assigned Provider 01/29/19 07/09/19 Javi Schmitz DO [address] [place] [address] Insurance Assigned Provider 07/07/20 01/05/21 documented as of this encounter Additional Source Comments The information contained in this document represents components of the legal health record. It is not the complete legal health record.[facility]
--- OUTSIDE RECORDS SUMMARY | 2025-09-12 14:45 | XMS_ITS | Clinical Summary ---
Author Organization [facility] Address [address] [place] [address] Phone Care Team Providers Care Activity Therapy Teacher Name Role Phone Javi Schmitz Primary Care Provider [phone] Allergies No known active allergies Medications atorvastatin (LIPITOR) 20 MG tablet atorvastatin 20 mg tablet TAKE 1 TABLET BY MOUTH EVERY DAY NEEDS APPT FOR FURTHER REFILLS & 90 DAY SUPPLY. CALL OFFICE Active lisinopril (PRINIVIL,ZESTR IL) 5 MG tablet lisinopril 5 mg tablet Active aspirin (ASPIR-81) 81 MG EC tablet Aspir-81 qd Active latanoprost (XALATAN) 0.005 % ophthalmic solution daily. Active Social History Tobacco Use Types Packs/Day Years Used Date Smoking Tobacco: Never Assessed Education Answer Date Recorded Are you interested in more education? Not on ana e 01/23/2023 Are you concerned about learning? Not on file 01/23/2023 No 01/23/2023 No 01/23/2023 Digital Access Answer Date Recorded No 02/24/2023 No 02/24/2023 Reliable internet access at home? Not on file 02/24/2023 Device with a working camera? Not on file Comments Unknown Sex and Gender Information Value Date Recorded Sex Assigned at Not on file Legal Sex Female 7:36 AM EDT Gender Identity Not on file Sexual Orientation Not on file Plan of Treatment Health Maintenance Due Date Last Done Comments Adult Td,Tdap Booster 1953 DEPRESSION SCREENING 1965 SMOKING Hx and SMOKELESS TOBACCO SCREENING 1966 MAMMOGRAM 1993 COLOGUARD 1998 COLONOSCOPY 1998 COLORECTAL CANCER SCREENING 1998 FIT TEST 1998 FOBT 1998 SIGMOIDOSCOPY 1998 VIRTUAL COLONOSCOPY 1998 ZOSTER VACCINES (1 of 2) 2003 OSTEOPOROSIS SCREENING INITIAL (ONE-TIME) 2018 CREATININE LEVEL 08/19/2020 08/19/2019, 02/2019, 01/25/2018 POTASSIUM LEVEL 08/19/2020 08/19/2019, 02/0 02/2019, 01/25/2018 LIPID PANEL 08/19/2024 08/19/2019, 02/0 02/2019, 11/03/2018, Additional history exists INFLUENZA VACCINE (#1) 2025 , 07/17/2019, 06/04/2018, Additional history exists COVID-19 VACCINE (2 - 2024- season) 2025 01/15/2021 RSV VACCINE (1 - 1-dose 75+ series) 2028 HEPATITIS C SCREENING Completed 08/19/2019 , 01/25/2018, 01/25/2018, Additional history exists PNEUMOCOCCAL VACCINES (50+ years) Completed 07/20/2020, 07/17/2019 HEPATITIS A VACCINES Aged Out No long er eligible based on patient's age to complete this topic HIB VACCINES Aged Out No longer eligi ble based on patient's age to complete this topic MENINGOCOCCAL VACCINES (ACWY) Aged Out No longer eligible based on patient's age to complete this topic MENINGOCOCCAL VACCINES (B) Aged Out N o longer eligible based on patient's age to complete this topic Medical Devices Not on file Procedures Procedure Name Priority Date/Time Associated Diagnosis Comments LIPID PANEL Routine 08/19/2019 8:12 AM EST Impaired fasting glucose Avitaminosis D Pain in joint, multiple sites Mixed hyperlipidemia Screening for unspecified condition HEPATITIS C ANTIBODY, QUALITATIVE Routine 08/19/2019 8:12 AM EST Impaired fasting glucose Avitaminosis D Pain in joint, multiple sites Mixed hyperlipidemia Screening for unspecified condition COMPREHENSIVE METABOLIC PANEL (CMP) Routine 08/19/2019 8:12 AM EST Impaired fasting glucose Avitaminosis D Pain in joint, multiple sites Mixed hyperlipidemia Screening for unspecified condition from Last 3 Months or Most Recently Relevant to Health Maintenance Results * Comprehensive metabolic panel (08/19/2019 8:12 AM EST) SODIUM 140 133 - 146 mmol/L [facility] POTASSIUM 4.2 3.3 - 5.1 mmol/L [facility] CHLORIDE 102 96 - 108 mmol/L [facility] CO2 26 21 - 35 mmol/L [facility] BUN 18 6 - 19 mg/dL [facility] CREATININE 0.70 0.5 - 1.5 mg/dL [facility] GLUCOSE 98 70 - 99 mg/dL [facility] ALBUMIN 4.4 3.9 - 4.8 g/dL [facility] TOTAL PROTEIN 7.0 6.5 - 8.0 g/dL [facility] CALCIUM 9.5 8.4 - 10.3 mg/dL [facility] ALKALINE PHOSPHATASE 86 39 - 117 U/L [facility] TOTAL BILIRUBIN 0.4 0.0 - 1.2 mg/dL [facility] AST 28 0 - 37 U/L [facility] ALT 22 0 - 40 U/L [facility] GLOBULIN 2.6 1 - 4.8 g/dL [facility] EGFR 91 >59 mL/min/1.7 3m2 [facility] Comment:If patient is black, multiply result by 1.159. Estimated glomerular filtration rate calculated using the CKD-EPI equation. ANION GAP 16 10 - 20 mmol/L [facility] Blood 08/19/2019 8:12 AM EST 08/19/2019 8:50 AM EST us December [facility] LAB BLOOD BKR ORDERABLES Fin al Result [facility] [address] [place] [address] * Hepatitis C antibody, qualitative (08/19/2019 8:12 AM EST) HCV NON-REACTIV E NON-REACTI VE [facility] Blood 08/19/2019 8:12 AM EST 08/19/2019 8:50 AM EST December [facility] LAB BLOOD BKR ORDERABLES Fin al Result Performing Organization Address [facility] Co de Phone Number [address] [address] * (ABNORMAL) Lipid panel (08/19/2019 8:12 AM EST) HDL 62 mg/dL [facility] Comment: Interpretation <40 mg/dL: Low HDL cholesterol (major risk factor for CHD) Greater than or equal to 60 mg/dL: High HDL cholesterol ( negative risk factor for CHD) HDL - cholesterol is affected by a number of factors, e.g. smoking, excerise, hormones, sex and age. CHOLESTEROL 155 0 - 240 mg/dL [facility] TRIGLYCERIDES 126 30 - 160 mg/dL [facility] LDL 68 50 - 129 mg/dL [facility] Comment: LDL levels in terms of risk for coronary heart disease: <100 mg/dL: Optimal 100-129 mg/dL: Near or above optimal 130-159 mg/dL: Borderline high 160-189 mg/dL: High >190 mg/dL: Very High CARDIAC RISK RATIO 2.5(L) 3.3 - 4.4 [facility] Blood 08/19/2019 8:12 AM EST 08/19/2019 8:50 AM EST us December [facility] LAB BLOOD BKR ORDERABLES Fin al Result [address] [address] from Last 3 Months or Most Recently Relevant to Health Maintenance Insurance [place] BLUE REPLACEMENT MEDICARE PPO BLUE REPLACEMENT MEDICARE PPO BLUE REPLACEMENT MEDICARE PPO BLUE REPLACEMENT MEDICARE PPO BLUE REPLACEMENT [address] [place] [address] MEDICARE PPO BLUE REPLACEMENT Care Teams Activity Therapy Teacher Relationship Specialty Start Date End Date Javi Schmitz DO [email or web address] PCP - General Internal Medicine 08/15/20 Additional Source Comments The information contained in this document represents components of the legal health record. It is not the complete legal health record.[facility]
== END 2025-09-12 11:54 | disposition home or self-care (01) ==
LOC: HO.HWS 11:10
PROVIDERS: PCP Internal Medicine; Visit Provider Advanced Practice Midwife
DX: Z01.419 Encounter for gynecological examination (general) (routine) without abnormal findings (principal); L90.0 Lichen sclerosus et atrophicus
CPT/HCPCS: 99397; 99459

== ENCOUNTER → 2025-09-12 11:10 | Outpatient (BNVA) | payer MEDICARE, SELFPAY | PROVIDERS: PCP Internal Medicine; Visit Provider Advanced Practice Midwife | DX: Z01.419 Encounter for gynecological examination (general) (routine) without abnormal findings (principal); L90.0 Lichen sclerosus et atrophicus | CPT/HCPCS: 99397 ==